=== PATIENT | male | born 1950 | race Caucasian/White ===

== ENCOUNTER → 2023-08-13 16:10 | Outpatient (REF) | payer MEDICARE, BC, SELFPAY | LOC: HWRAD 16:10 | PROVIDERS: ATTENDING PHYSICIAN Nuclear Medicine Nuclear Cardiology; FAMILY PHYSICIAN Family Medicine | DX: I25.10 Atherosclerotic heart disease of native coronary artery without angina pectoris (principal); I48.0 Paroxysmal atrial fibrillation; I25.5 Ischemic cardiomyopathy; R06.02 Shortness of breath | CPT/HCPCS: 71046 ==

== ENCOUNTER → 2023-08-14 12:24 | Outpatient (REF) | payer MEDICARE, BC, SELFPAY | LOC: RADI 12:24 | PROVIDERS: ATTENDING PHYSICIAN Specialist; FAMILY PHYSICIAN Family Medicine | DX: Z49.01 Encounter for fitting and adjustment of extracorporeal dialysis catheter (principal); N18.6 End stage renal disease | CPT/HCPCS: 36589 ==

== ENCOUNTER → 2023-08-19 10:23 | Outpatient (REF) | payer MEDICARE, BC, SELFPAY ==
[2023-08-19 10:44] VITALS: BP 135/77; BP_SYST 77
[2023-08-19 11:13] VITALS: BP 145/83
== END ==
LOC: RADI 10:23
PROVIDERS: ATTENDING PHYSICIAN Nuclear Medicine Nuclear Cardiology
DX: J90 Pleural effusion, not elsewhere classified (principal)
CPT/HCPCS: 32555; 71045

== ENCOUNTER → 2023-10-28 13:46 | Outpatient (REF) | payer MEDICARE, BC, SELFPAY | LOC: DHCBS HW 13:46 | PROVIDERS: ATTENDING PHYSICIAN Nuclear Medicine Nuclear Cardiology; FAMILY PHYSICIAN Family Medicine | DX: I25.10 Atherosclerotic heart disease of native coronary artery without angina pectoris (principal); I25.5 Ischemic cardiomyopathy; R06.09 Other forms of dyspnea | CPT/HCPCS: 93308 ==

== ENCOUNTER → 2023-10-30 09:49 | Outpatient (REF) | payer MEDICARE, BC, SELFPAY | LOC: RAD 09:49 | PROVIDERS: ATTENDING PHYSICIAN Surgery Vascular Surgery | DX: I77.0 Arteriovenous fistula, acquired (principal) | CPT/HCPCS: 93990 ==

== ENCOUNTER 2024-02-09 10:52 | Emergency (ER) | payer MEDICARE, BC, SELFPAY ==
[2024-02-09 11:03] VITALS: BP 155/88
--- NOTE | 2024-02-09 11:04 | ED.GENMED ---
History of Present Illness
<Moni Blair PA-C - Last Filed: 02/09/24 19:40>
General
Chief Complaint: Skin Surface Trauma
Source: patient
Exam Limitations: none
Time Seen by Provider: 02/09/24 11:04
Nursing documentation reviewed up to this point in time: agreed with
History of Present Illness
History of Present Illness:
73-year-old male with a past medical history of A-fib on Eliquis, coronary artery disease, hypertension, chronic renal failure on dialysis, insulin-dependent diabetes presenting to emergency department today with concerns of a laceration following a
fall. Patient reports that he was sitting down in his chair when he rocked back in his chair too far and lunged forward and fell forward onto his face. Patient reports some mild neck pain and a headache following the injury. Patient does take
Eliquis. Patient endured a large laceration to his left forehead with persistent bleeding. This occurred few hours ago. Patient did not lose consciousness. Patient is able to ambulate without difficulty. Patient denies any upper extremity
paresthesias. Patient denies any weakness in his extremities. Patient believes up-to-date on tetanus vaccination. Patient denies any chest pain, dizziness, palpitation prior to the fall. Family present in room reports that patient has been
having balance issues as of recent but that he tends to get that way surrounding dialysis.
Past History
<Moni Blair PA-C - Last Filed: 02/09/24 19:40>
Past History
ED Past Medical History: CAD, HTN, IDDM, Renal failure and Other (right inguinal hernia)
ED Past Surgical History: Cardiac (stent placement 2022)
Social History
Tobacco: Non-smoker
Alcohol: Occasional
Drug: None
Personal:
Living: with family
Review of Systems
<Moni Blair PA-C - Last Filed: 02/09/24 19:40>
Review of Systems
All Other Systems: ROS reviewed and negative except as documented in HPI and ROS
Phy Exam
<Moni Blair PA-C - Last Filed: 02/09/24 19:40>
Physical Exam
Physical Exam:
General: Patient is well appearing and in no acute distress; non-toxic
Skin: Warm and dry, there is a 4.5 cm actively bleeding laceration above the left eyebrow. Is gaping. No obvious foreign body.
Head: Normocephalic, no tenderness palpation of the scalp. No laceration noted. No tenderness palpation of the facial bones. TMJ joints intact bilaterally.
Eyes: Sclera non-icteric. EOMs intact. No entrapment.
Neck: No tenderness palpation cervical spine. Patient seen spontaneously moving cervical spine.
Cardiac: Regular rate, no tenderness palpation of the external chest wall
Peripheral Vascular: No lower extremity swelling or edema
Pulm: Normal respiratory effort
Abdomen: No abdominal tenderness to palpation
Musculoskeletal: 5 out of 5 strength bilateral upper and lower extremities
Neuro: CN II-XII intact, no focal neurologic deficits. Sensation intact to light touch of forehead and facial trigeminal nerve distribution.
Psychiatric: Appropriate mood and affect.
Course
<Moni Blair PA-C - Last Filed: 02/09/24 19:40>
Orders/Labs/Results
Orders:
Orders
02/09/24 11:[address] [CT Head W/o Iv Contrast] Urgent
Comment:
Reason For Exam: head strike
02/09/24 11:06
CT Cervical Spine W/o Iv Contr Urgent
Comment:
Reason For Exam: head strike, mild neck pain
Vital Signs
Initial and Last Documented VS:
Initial Vital Signs
Temp Pulse Resp BP Pulse Ox
97.6 F 99 16 155/88 97
02/09/24 11:03 02/09/24 11:03 02/09/24 11:03 02/09/24 11:03 02/09/24 11:03
Last Documented Vital Signs
Temp Pulse Resp BP Pulse Ox
97.6 F 99 14 141/78 98
02/09/24 11:03 02/09/24 14:37 02/09/24 14:37 02/09/24 14:37 02/09/24 14:37
<Tamara Warren MD - Last Filed: 02/09/24 12:03>
Orders/Labs/Results
Orders:
Orders
02/09/24 11:[address]
Head [address] [CT Head W/o Iv Contrast] Urgent
Comment:
Reason For Exam: head strike
02/09/24 11:06
CT Cervical Spine W/o Iv Contr Urgent
Comment:
Reason For Exam: head strike, mild neck pain
Vital Signs
Initial and Last Documented VS:
Initial Vital Signs
Temp Pulse Resp BP Pulse Ox
97.6 F 99 16 155/88 97
02/09/24 11:03 02/09/24 11:03 02/09/24 11:03 02/09/24 11:03 02/09/24 11:03
Last Documented Vital Signs
Temp Pulse Resp BP Pulse Ox
97.6 F 99 14 141/78 98
02/09/24 11:03 02/09/24 14:37 02/09/24 14:37 02/09/24 14:37 02/09/24 14:37
Procedures
<Moni Blair PA-C - Last Filed: 02/09/24 19:40>
Laceration Closure
Left Forehead:
Status of Wound: clean
Size of Wound in cm: 4.5
Description of Wound Edges: sharp
Preparation: cleaned with saline
Anesthesia: 1% Lidocaine with epi
Revision/Debridement: routine- no revision
Wound exploration: explored to base- no FB
Type of Closure: single layer closure
Skin Closure Material: 5-0 prolene
Number of sutures: 9
<Moni Blair PA-C - Last Filed: 02/09/24 19:40>
MDM/Problems Addressed
Differential Diagnosis Includes:
Differentials include laceration, abrasion, concussion, orbital fracture, epidural hematoma, subdural hematoma
MDM/Problems Addressed:
Fall:
73-year-old male with a past medical history of A-fib on Eliquis, coronary artery disease, hypertension, chronic renal failure on dialysis, insulin-dependent diabetes presenting to emergency department today with concerns of a laceration following a
fall. Patient reports that he was sitting down in his chair when he rocked back in his chair too far and lunged forward and fell forward onto his face. Patient had no loss of consciousness. Patient's laceration was repaired with sutures, patient
tolerated procedure well, return precaution and care discussed. CT the cervical spine is negative for any fracture but does show multiple degenerative changes. Head CT reveals no fracture or acute bleed but does show moderate ventricular dilation
which may be consistent with normal pressure hydrocephalus.
Neurosurgeon on-call was contacted who stated that patient does not need intervention at this time or be admitted for further workup, however patient can follow-up as outpatient in the office. Referral for neurosurgery office provided. Advised
patient and family to call the office tomorrow morning. Patient stable for discharge.
Chronic conditions affecting care:
Renal failure on dialysis, A-fib on Eliquis, insulin-dependent diabetes
<Moni Blair PA-C - Last Filed: 02/09/24 19:40>
*Pulse Oximetry
Patient hypoxic: no
*Critical Care Note
Total Time (30-74mins, 75-104mins- exclusive of procedures): Not Applicable
Data Reviewed
Review of Other/Old Records Reveals: Records (Reviewed ER physician documentation from 07/17/2023), Radiology Studies (No previous head CTs in [facility] to review) and Discharge Summary (Reviewed discharge summary from 05/03/2023)
Source: patient and records
<Moni Blair PA-C - Last Filed: 02/09/24 19:40>
Patient Management
Escalation/DeEscalation of care consider admission/obs:
Reviewed case with my attending. Patient stable for discharge.
ED Attending Note
<Moni Blair PA-C - Last Filed: 02/09/24 19:40>
-
Portions of this chart may have been created with voice recognition software.� Occasional wrong word or��sound alike� substitutions may have occurred due to the inherent limitations of voice recognition software.
<Tamara Warren MD - Last Filed: 02/09/24 12:03>
ED Attending Note
Patient seen and examined by attending physician: Yes
I performed the substantive portion of visit, reviewed & personally made and approve the management plan that is documented in note by myself or BHAVNA.: Yes
ED Attending Note:
Patient is fully awake, alert and oriented x 3. On exam, he has a nontender C-spine. His heart sounds regular. His abdomen is soft and nontender. He denies headache, nausea, vomiting, weakness and numbness.
Discharge Plan
Departure
Patient Disposition: Home (Routine Discharge)
Date of Disposition: 02/09/24
Time of Disposition: 14:09
Patient with high blood pressure during this ER visit?: Yes
Condition: Good
Discharge Problem:
Forehead laceration, Fall
Instructions: Wound Care (DC), Laceration Repair With Stitches (DC)
Prescriptions:
No Action
atorvastatin 80 mg Tablet
80 mg PO HS
insulin degludec [Tresiba FlexTouch U-100] 100 unit/mL (3 mL) Insulin Pen
10 - 14 unit SC HS
calcium acetate 667 mg Tablet
667 mg PO MEALS
aspirin 81 mg tablet,delayed release (DR/EC)
81 mg PO DAILY
Eliquis 5 mg tablet
2.5 mg PO BID
acetaminophen 325 mg Tablet
650 mg PO Q4HPRN PRN (Reason: mild pain,headache,temp >101F ) Qty: 0 0RF
oxycodone 5 mg Tablet
5 mg PO Q6HPRN PRN (Reason: modeate-severe pain control) Qty: 28 0RF
pantoprazole 20 mg Tablet,Delayed Release (Dr/Ec)
20 mg PO DAILY Qty: 30 0RF
insulin aspart U-100 [Novolog FlexPen U-100 Insulin] 100 unit/mL (3 mL) Insulin Pen
12 unit SC AC Qty: 15 0RF
albuterol sulfate 2.5 mg /3 mL (0.083 %) Solution For Nebulization
2.5 mg INHALATION R Q4HPRN PRN (Reason: sob)
carvedilol [Coreg] 3.125 mg Tablet
3.125 mg PO BID
gabapentin 100 mg Capsule
100 mg PO BID
Rx Instructions:
new start 07/16/23
amiodarone [Pacerone] 200 mg tablet
200 mg PO DAILY
Referrals:
Estuardo Torres DO [Active] - Call in 1-3 days for appt
Olman Dougherty DO [Family Provider] -
Activity Restrictions/Additional Instructions:
Please return emergency department to develop fevers or chills, purulent drainage from the wound, surrounding redness to the wound, increasing pain, any other concerning signs or symptoms.
Your CT scan of your head demonstrated dilation of the ventricles in your brain. It is very important that you follow-up with a neurologist for this issue. Please call the attached number to schedule an appointment.
Please keep the wound dry for 24 hours. After 24 hours, you can wash the wound with mild soap and water. You can apply bacitracin once daily and change the dressing once daily.
Interventions
Interventions:
*Risk Screen - Suicide Last Done: 02/09/24 11:44
*General Assessment Last Done: 02/09/24 11:44
*Neglect/Abuse Screening Last Done: 02/09/24 11:44
ED- Fall Risk Assessment Last Done: 02/09/24 14:39
*ED COVID-19 Vaccine History Last Done: 02/09/24 11:44
*Nursing Disposition Last Done: 02/09/24 14:39
ED-Skin Assessment Last Done: 02/09/24 11:44
Discharge Date and Time
Discharge Date/Time: 02/09/24 14:40
Print Language: [place] K[place]
[2024-02-09 11:44] VITALS: BMI 20.2
[2024-02-09 14:37] VITALS: BP 141/78
== END 2024-02-09 14:40 | disposition home or self-care (01) ==
LOC: EMR 10:52
PROVIDERS: EMERGENCY PHYSICIAN Emergency Medicine; FAMILY PHYSICIAN Family Medicine
DX: S01.81XA Laceration without foreign body of other part of head, initial encounter (principal); W07.XXXA Fall from chair, initial encounter; I48.91 Unspecified atrial fibrillation; Z79.01 Long term (current) use of anticoagulants; I25.10 Atherosclerotic heart disease of native coronary artery without angina pectoris; I12.0 Hypertensive chronic kidney disease with stage 5 chronic kidney disease or end stage renal disease; N18.6 End stage renal disease; E11.22 Type 2 diabetes mellitus with diabetic chronic kidney disease
CPT/HCPCS: 99284; 12002; 70450; 72125

== ENCOUNTER 2024-04-20 19:17 | Emergency (ER) | payer MEDICARE, BC, SELFPAY ==
[2024-04-20 19:19] VITALS: BP 142/96
[2024-04-20 19:42] LABS: % Basophils 1.1 % (0-2); % Eosinophils 0.3 % (0-6); % Immature Granulocytes 1.6 % (0-0.5); % Lymphocytes 18.2 % (20.5-51.1); % Monocytes 11.6 % (1.7-9.3); % Neutrophils 67.2 % (42.2-75.2); Absolute Basophils 0.1 10^3/uL (0-0.2); Absolute Immature Granulocytes 0.1 10^3/uL (0-0.05); Absolute Lymphocytes 1.2 10^3/uL (1.2-3.4); Absolute Monocytes 0.8 10^3/uL (0.1-0.6); Absolute Neutrophils 4.3 10^3/uL (1.4-6.5); Hematocrit 41.6 % (39.0-52.0); Hemoglobin 13.5 g/dL (13.0-18.0); Mean Corp Hgb Conc. 32.5 g/dL (33.0-37.0); Mean Corpuscular Hgb 28.5 pg (27.0-31.0); Mean Corpuscular Volume 87.8 fL (80.0-94.0); Mean Platelet Volume 10.4 fL (7.4-10.4); Nucleated Red Blood Cells % 0.6 % (-); Platelet Count 181 10^3/uL (130-400); Red Blood Cell Count 4.74 10^6/uL (4.70-6.10); Red Cell Dist. Width 15.9 % (11.5-14.5); White Blood Cell Count 6.4 10^3/uL (4.8-10.8)
[2024-04-20 20:00] VITALS: BP 116/90
[2024-04-20 20:07] VITALS: BP 116/90
[2024-04-20 20:18] VITALS: BMI 21.7
[2024-04-20 20:20] LABS: ALT (SGPT) 40 U/L (0-50); AST (SGOT) 44 U/L (17-59); Albumin 4.6 g/dl (3.5-5.0); Alkaline Phosphatase 113 U/L (38-126); Blood Urea Nitrogen 72 mg/dl (9-20); Calcium 9.8 mg/dl (8.4-10.2); Carbon Dioxide 22 mmol/L (22-30); Chloride 89 mmol/L (98-107); Estimated Creatinine Clearance 12 ml/min; Glucose 287 mg/dl (70-99); Potassium 5.9 mmol/L (3.5-5.1); Sodium 134 mmol/L (135-145); Total Bilirubin 1.3 mg/dl (0.2-1.3); Total Protein 7.8 g/dl (6.3-8.2); eGFR 12.17
--- NOTE | 2024-04-20 20:53 | ED.GENMED ---
History of Present Illness
General
Chief Complaint: Breathing Problem
Time Seen by Provider: 04/20/24 19:50
History of Present Illness
History of Present Illness:
73-year-old male presents the emergency department for evaluation of shortness of breath, had an outpatient chest x-ray showing a left-sided pleural effusion. He denies shortness of breath at rest but has significant exertional symptoms. No fevers
or chills. He is supposed to be on Eliquis for A-fib but self discontinued this several months ago. Has a history of left pleural effusion that has required thoracentesis in the past. He is due for dialysis tomorrow morning and has been compliant
with all of his recent treatments
Past History
Past History
ED Past Medical History: CAD, HTN, IDDM, Renal failure and Other (right inguinal hernia)
ED Past Surgical History: Cardiac (stent placement 2022)
Social History
Tobacco: Non-smoker
Alcohol: Occasional
Drug: None
Personal:
Living: with family
Review of Systems
Review of Systems
Allergies reviewed?: Yes
All Other Systems: ROS reviewed and negative except as documented in HPI and ROS
Phy Exam
Physical Exam
Physical Exam:
GEN: Well appearing, NAD, WDWN
HEENT: Oral mucosa moist, no scleral icterus
Cardiac: Regular rate and rhythm
Lung: No respiratory distress, no tachypnea, diminished left base breath sounds, otherwise clear
MSK: No gross deformity or injuries
Skin: Good color, no pallor or jaundice, no rashes
Neuro: AO x3, moves all extremities freely
Psych: Calm, cooperative
Scores
Heart Failure Risk
Heart Failure Risk Score: Not Applicable
Course
Orders/Labs/Results
Orders:
Orders
04/20/24 19:22
Electrocardiogram (*1) Urgent
Reason for Study: Shortness of Breath
EKG- Treatment ONCE
04/20/24 19:31
Complete Blood Count/With Diff Urgent
Comprehensive Metabolic Panel Urgent
04/20/24 20:54
Sodium Zirconium Cyclosilicate [Lokelma] 10 gram PO NOW STA
Abnormal Lab Results
04/20/24
19:31
MCHC 32.5 L g/dL
(33.0-37.0)
RDW 15.9 H %
(11.5-14.5)
Abs Immat Gran (auto) 0.1 H 10^3/uL
(0-0.05)
Absolute Monos (auto) 0.8 H 10^3/uL
(0.1-0.6)
Immature Gran % 1.6 H %
(0-0.5)
Lymphocytes % 18.2 L %
(20.5-51.1)
Monocytes % 11.6 H %
(1.7-9.3)
Sodium 134 L mmol/L
(135-145)
Potassium 5.9 H mmol/L
(3.5-5.1)
Chloride 89 L mmol/L
(98-107)
BUN 72 H mg/dl
(9-20)
Creatinine 4.8 H* mg/dL
(0.7-1.3)
Glucose 287 H mg/dl
(70-99)
04/20/24 19:31
04/20/24 19:31
Vital Signs
Initial and Last Documented VS:
Initial Vital Signs
Temp Pulse Resp BP Pulse Ox
97.6 F 76 22 142/96 96
04/20/24 19:19 04/20/24 19:19 04/20/24 19:19 04/20/24 19:19 04/20/24 19:19
Last Documented Vital Signs
Temp Pulse Resp BP Pulse Ox
97.6 F 101 15 117/87 97
04/20/24 19:19 04/20/24 21:00 04/20/24 21:00 04/20/24 21:00 04/20/24 21:00
MDM/Problems Addressed
MDM/Problems Addressed:
Patient is clinically stable and suitable for outpatient thoracentesis, prescription written for outpatient procedure, given Lokelma x 1 for hyperkalemia and will receive dialysis tomorrow
*Critical Care Note
Total Time (30-74mins, 75-104mins- exclusive of procedures): Not Applicable
ED Attending Note
-
Portions of this chart may have been created with voice recognition software.� Occasional wrong word or��sound alike� substitutions may have occurred due to the inherent limitations of voice recognition software.
Discharge Plan
Departure
Patient Disposition: Home (Routine Discharge)
Date of Disposition: 04/20/24
Time of Disposition: 20:53
Patient with high blood pressure during this ER visit?: No
Discharge Problem:
Recurrent left pleural effusion, Acute hyperkalemia, ESRD on dialysis
Instructions: Pleural effusion
Prescriptions:
No Action
atorvastatin 80 mg Tablet
80 mg PO HS
calcium acetate 667 mg Tablet
667 mg PO MEALS
aspirin 81 mg tablet,delayed release (DR/EC)
81 mg PO DAILY
insulin aspart U-100 [Novolog FlexPen U-100 Insulin] 100 unit/mL (3 mL) Insulin Pen
12 unit SC AC Qty: 15 0RF
Rx Instructions:
meals
albuterol sulfate 2.5 mg /3 mL (0.083 %) Solution For Nebulization
2.5 mg INHALATION R Q4HPRN PRN (Reason: sob)
carvedilol [Coreg] 3.125 mg Tablet
3.125 mg PO BID
gabapentin 100 mg Capsule
100 mg PO BID
Rx Instructions:
new start 07/16/23
amiodarone [Pacerone] 200 mg tablet
200 mg PO DAILY
tramadol 50 mg Tablet
50 mg PO BID PRN (Reason: pain)
insulin glargine [Lantus Solostar U-100 Insulin] 100 unit/mL (3 mL) Insulin Pen
10 - 14 unit SC HS
Referrals:
Olman Dougherty, [Family Provider] -
Gerry Murillo DO [Active] -
Activity Restrictions/Additional Instructions:
Obtain dialysis as planned tomorrow
Call interventional radiology tomorrow in the AM to schedule an appointment
Interventions
Interventions:
*Risk Screen - Suicide Last Done: 04/20/24 19:19
*General Assessment Last Done: 04/20/24 19:19
*Neglect/Abuse Screening Last Done: 04/20/24 19:19
ED- Fall Risk Assessment Last Done: 04/20/24 20:10
*ED COVID-19 Vaccine History Last Done: 04/20/24 19:19
*Nursing Disposition Last Done: 04/20/24 21:25
ED- Cardiac Assessment Last Done: 04/20/24 20:10
ED- Pulmonary Assessment Last Done: 04/20/24 20:10
Discharge Date and Time
Discharge Date/Time: 04/20/24 21:25
Print Language: [place]
[2024-04-20 21:00] VITALS: BP 117/87
[2024-04-20] MEDS: LOKELMA 10 GRAM PO (21:10)
== END 2024-04-20 21:25 | disposition home or self-care (01) ==
LOC: EMR 19:17
PROVIDERS: Student in an Organized Health Care Education/Training Program; EMERGENCY PHYSICIAN Student in an Organized Health Care Education/Training Program; FAMILY PHYSICIAN Family Medicine
DX: J90 Pleural effusion, not elsewhere classified (principal); E87.5 Hyperkalemia; I12.0 Hypertensive chronic kidney disease with stage 5 chronic kidney disease or end stage renal disease; N18.6 End stage renal disease; Z99.2 Dependence on renal dialysis; I25.10 Atherosclerotic heart disease of native coronary artery without angina pectoris; I48.91 Unspecified atrial fibrillation; E11.22 Type 2 diabetes mellitus with diabetic chronic kidney disease; Z79.4 Long term (current) use of insulin; Z79.82 Long term (current) use of aspirin; Z95.5 Presence of coronary angioplasty implant and graft; Z91.148 Patient's other noncompliance with medication regimen for other reason
CPT/HCPCS: 99283; 71046; 80053; 85025; 93005

== ENCOUNTER → 2024-04-22 11:00 | Outpatient (REF) | payer MEDICARE, BC, SELFPAY ==
[2024-04-22 11:15] VITALS: BP 143/86; BP_SYST 102
[2024-04-22 11:25] VITALS: BP 129/88; BP_SYST 100
[2024-04-22 12:15] LABS: Body Fluid Mononuclear 65.6 %; Body Fluid Polymorphonuclear 34.4 %; Body Fluid WBC 273 /CUMM
[2024-04-22 12:16] LABS: Body Fluid Second Tech AMA
[2024-04-22 12:25] LABS: Body Fluid LDH 134 U/L
== END ==
LOC: RADI 11:00
PROVIDERS: ATTENDING PHYSICIAN Physician Assistant; FAMILY PHYSICIAN Family Medicine
DX: J90 Pleural effusion, not elsewhere classified (principal)
CPT/HCPCS: 32555; 71045; 83615; 87015; 87070; 87205; 89051

== ENCOUNTER 2024-05-05 23:58 | Observation (INO) | payer MEDICARE, BC, SELFPAY ==
[2024-05-05] VITALS (9 sets, daily range): BP systolic 133–149; BP diastolic 81–101; BMI 22.4
--- NOTE | 2024-05-05 16:21 | ED.GENMED ---
ED Provider Triage
<Nohemy Brewer PA-C - Last Filed: 05/05/24 16:26>
-
Patient seen by provider in Triage?: Seen in Triage
Attestation: A medical screening examination has been initiated by a qualified medical provider. Based on the assessment performed at this time, it has been determined that an emergent medical condition may exist and the patient has been informed
that further medical evaluation and possible additional diagnostic testing may be needed.
HPI: 74yoM here with generalized weakness, fatigue, trouble with balance. Ongoing x several months, worse today. Hx of ESRD on HD and IDDM. Last dialysis treatment was today. Seen in the ED recently for SOB, no dyspnea today. Has an appt with his
PCP tomorrow.
GENERAL: Alert , in no apparent distress
EYE: No visual abnormalities.
NECK: Trachea midline
ENT: No visible abnormalities.
LUNGS: No acute respiratory distress
NEUROLOGICAL: Alert and oriented
SKIN: Skin intact. No visible changes.
MUSCULOSKELETAL: Moving extremities normally
PSYCH: Normal and appropriate interaction.
This is a medical evaluation conducted in person to initiate diagnostic evaluation and provide initial therapeutics. Please see further documentation by the treating clinician.
CBC, CMP, and EKG ordered.
History of Present Illness
<Nohemy Brewer PA-C - Last Filed: 05/05/24 16:26>
General
Chief Complaint: Fatigue
Time Seen by Provider: 05/05/24 20:26
<Nayely Hart MD - Last Filed: 05/05/24 23:29>
History of Present Illness
History of Present Illness:
Patient is a 74-year-old male with history of CKD on dialysis, hypertension, hyperlipidemia, CAD bypass presenting to the emergency department with weakness. Patient's states that he was possibly diagnosed with NPH based on imaging however
went to a neurosurgeon who stated that he did not have NPH. They have noticed that his gait has worsened and he is shuffling more. 3 to 4 days ago he had weakness and sensation deficit in his right foot. Today he grabbed his couple coffee when he
his hand was so weak that it dropped. This is extremely unusual so they brought him in for further evaluation. They also noticed to have speech changes intermittently throughout the week. He denies any recent falls. No chest pain. No difficulty
breathing. Family does note that he is weak after dialysis however today was more unusual than his normal. Patient's does state that he has been more confused lately and is also been having urinary incontinence. They do not have any plans to
see the neurosurgeon .
Past History
<Nohemy Brewer PA-C - Last Filed: 05/05/24 16:26>
Past History
ED Past Medical History: CAD, HTN, IDDM, Renal failure and Other (right inguinal hernia)
ED Past Surgical History: Cardiac (stent placement 2022)
Social History
Tobacco: Non-smoker
Alcohol: Occasional
Drug: None
Personal:
Living: with family
Phy Exam
<Nayely Hart MD - Last Filed: 05/05/24 23:29>
Physical Exam
Physical Exam:
GENERAL: in no acute distress
HEENT: normocephalic, extraocular movements intact, moist oral mucosa
NECK: normal inspection
RESPIRATORY: no respiratory distress, clear to auscultation bilaterally
CARDIOVASCULAR: regular rate and rhythm
ABDOMEN/: soft, non-distended, non-tender to palpation, no rebound or guarding
EXTREMITIES: non-tender, no edema/swelling
NEUROLOGIC: alert and oriented x 3, cranial nerves II-XII intact, right upper extremity strength 5/5, left upper extremity strength 5/5, right lower extremity strength 4/5, left lower extremity strength 5/5, normal sensation to light touch, normal
[id number]-[id number]-rmnb and cwlp-tq-[id number], gait not tested formally
SKIN: warm
Course
<Nohemy Brewer PA-C - Last Filed: 05/05/24 16:26>
Orders/Labs/Results
Orders:
Orders
05/05/24 16:25
Electrocardiogram (*1) Urgent
Reason for Study: Fatigue / Weakness
EKG- Treatment ONCE
05/05/24 16:37
Complete Blood Count/With Diff Urgent
05/05/24 20:14
Comprehensive Metabolic Panel Urgent
05/05/24 20:[address] [CT Head W/o Iv Contrast] Urgent
Comment:
Reason For Exam: weakness, confusion
05/05/24 21:17
Urinalysis Reflex To Culture Urgent
Date Specimen was Collected: 05/05/24
Time Specimen was Collected: 20:11
Urine Microscopic Reflex Cult Urgent
Abnormal Lab Results
05/05/24 05/05/24 05/05/24
16:37 20:14 20:28
MCHC 32.3 L g/dL
(33.0-37.0)
RDW 19.3 H %
(11.5-14.5)
Plt Count 101 L 10^3/uL
(130-400)
MPV 11.9 H fL
(7.4-10.4)
Absolute Lymphs (auto) 0.9 L 10^3/uL
(1.2-3.4)
Absolute Monos (auto) 0.8 H 10^3/uL
(0.1-0.6)
Immature Gran % 0.6 H %
(0-0.5)
Lymphocytes % 12.8 L %
(20.5-51.1)
Monocytes % 10.9 H %
(1.7-9.3)
Chloride 95 L mmol/L
(98-107)
BUN 48 H mg/dl
(9-20)
Creatinine 2.5 H mg/dL
(0.7-1.3)
Glucose 215 H mg/dl
(70-99)
Calcium 8.1 L mg/dl
(8.4-10.2)
Total Protein 6.0 L g/dl
(6.3-8.2)
Albumin 3.2 L g/dl
(3.5-5.0)
Ur Occult Blood Reflex
Urine RBC
Urine Bacteria (Reflex)
Urine Glucose
Urine Albumin (Reflex)
POC Glucose 223 H mg/dl
(70-99)
05/05/24
21:17
MCHC
RDW
Plt Count
MPV
Absolute Lymphs (auto)
Absolute Monos (auto)
Immature Gran %
Lymphocytes %
Monocytes %
Chloride
BUN
Creatinine
Glucose
Calcium
Total Protein
Albumin
Ur Occult Blood Reflex Trace A
(Negative)
Urine RBC 3-6 A /HPF
(0-2)
Urine Bacteria (Reflex) Few A
(Negative)
Urine Glucose 2+ A
(Negative)
Urine Albumin (Reflex) 2+ A
(Neg - Trace)
POC Glucose
05/05/24 16:37
05/05/24 20:14
Vital Signs
Initial and Last Documented VS:
Initial Vital Signs
Temp Pulse Resp BP Pulse Ox
97.8 F 66 20 137/84 96
05/05/24 16:19 05/05/24 16:19 05/05/24 16:19 05/05/24 16:19 05/05/24 16:19
Last Documented Vital Signs
Temp Pulse Resp BP Pulse Ox
97.8 F 98 14 137/89 97
05/05/24 16:19 05/05/24 22:15 05/05/24 22:15 05/05/24 22:00 05/05/24 22:15
<Nayely Hart MD - Last Filed: 05/05/24 23:29>
Orders/Labs/Results
Orders:
Orders
05/05/24 16:25
Electrocardiogram (*1) Urgent
Reason for Study: Fatigue / Weakness
EKG- Treatment ONCE
05/05/24 16:37
Complete Blood Count/With Diff Urgent
05/05/24 20:14
Comprehensive Metabolic Panel Urgent
05/05/24 20:[address] [CT Head W/o Iv Contrast] Urgent
Comment:
Reason For Exam: weakness, confusion
05/05/24 21:17
Urinalysis Reflex To Culture Urgent
Date Specimen was Collected: 05/05/24
Time Specimen was Collected: 20:11
Urine Microscopic Reflex Cult Urgent
Abnormal Lab Results
05/05/24 05/05/24 05/05/24
16:37 20:14 20:28
MCHC 32.3 L g/dL
(33.0-37.0)
RDW 19.3 H %
(11.5-14.5)
Plt Count 101 L 10^3/uL
(130-400)
MPV 11.9 H fL
(7.4-10.4)
Absolute Lymphs (auto) 0.9 L 10^3/uL
(1.2-3.4)
Absolute Monos (auto) 0.8 H 10^3/uL
(0.1-0.6)
Immature Gran % 0.6 H %
(0-0.5)
Lymphocytes % 12.8 L %
(20.5-51.1)
Monocytes % 10.9 H %
(1.7-9.3)
Chloride 95 L mmol/L
(98-107)
BUN 48 H mg/dl
(9-20)
Creatinine 2.5 H mg/dL
(0.7-1.3)
Glucose 215 H mg/dl
(70-99)
Calcium 8.1 L mg/dl
(8.4-10.2)
Total Protein 6.0 L g/dl
(6.3-8.2)
Albumin 3.2 L g/dl
(3.5-5.0)
Ur Occult Blood Reflex
Urine RBC
Urine Bacteria (Reflex)
Urine Glucose
Urine Albumin (Reflex)
POC Glucose 223 H mg/dl
(70-99)
05/05/24
21:17
MCHC
RDW
Plt Count
MPV
Absolute Lymphs (auto)
Absolute Monos (auto)
Immature Gran %
Lymphocytes %
Monocytes %
Chloride
BUN
Creatinine
Glucose
Calcium
Total Protein
Albumin
Ur Occult Blood Reflex Trace A
(Negative)
Urine RBC 3-6 A /HPF
(0-2)
Urine Bacteria (Reflex) Few A
(Negative)
Urine Glucose 2+ A
(Negative)
Urine Albumin (Reflex) 2+ A
(Neg - Trace)
POC Glucose
05/05/24 16:37
05/05/24 20:14
Vital Signs
Initial and Last Documented VS:
Initial Vital Signs
Temp Pulse Resp BP Pulse Ox
97.8 F 66 20 137/84 96
05/05/24 16:19 05/05/24 16:19 05/05/24 16:19 05/05/24 16:19 05/05/24 16:19
Last Documented Vital Signs
Temp Pulse Resp BP Pulse Ox
97.8 F 98 14 137/89 97
05/05/24 16:19 05/05/24 22:15 05/05/24 22:15 05/05/24 22:00 05/05/24 22:15
<Nayely Hart MD - Last Filed: 05/05/24 23:29>
MDM/Problems Addressed
Differential Diagnosis Includes:
Patient is a 74-year-old man presenting to the emergency department with weakness that has been ongoing for the past 3 to 4 days with it worsening today. Vitals unremarkable and exam does show slightly decreased joint in the right lower extremity.
Concern for CVA versus infection such as UTI or normal pressure hydrocephalus. Will check blood work for electrolytes and obtain urine and CT scan. Patient will need admission.
<Nayely Hart MD - Last Filed: 05/05/24 23:29>
*Critical Care Note
Total Time (30-74mins, 75-104mins- exclusive of procedures): Not Applicable
<Nayely Hart MD - Last Filed: 05/05/24 23:29>
Update Note
Update Note:
Blood work unremarkable overall. Creatinine is improved from baseline. CT scan negative. Discussed with hospitalist who accepted patient to their service.
ED Attending Note
<Nohemy Brewer PA-C - Last Filed: 05/05/24 16:26>
-
Portions of this chart may have been created with voice recognition software.� Occasional wrong word or��sound alike� substitutions may have occurred due to the inherent limitations of voice recognition software.
Discharge Plan
Departure
Patient Disposition: Admit
Date of Disposition: 05/05/24
Time of Disposition: 23:28
Presentation/result/management discussed w/ accepting MD/DO: Hospitalist
Discharge Problem:
Weakness
Prescriptions:
No Action
atorvastatin 80 mg Tablet
80 mg PO HS
calcium acetate 667 mg Tablet
667 mg PO MEALS
aspirin 81 mg tablet,delayed release (DR/EC)
81 mg PO HS
insulin aspart U-100 [Novolog FlexPen U-100 Insulin] 100 unit/mL (3 mL) Insulin Pen
12 unit SC AC Qty: 15 0RF
carvedilol [Coreg] 3.125 mg Tablet
3.125 mg PO BID
gabapentin 100 mg Capsule
200 mg PO HS
amiodarone [Pacerone] 200 mg tablet
200 mg PO HS
tramadol 50 mg Tablet
100 mg PO HS
insulin glargine [Lantus Solostar U-100 Insulin] 100 unit/mL (3 mL) Insulin Pen
14 unit SC HS
acetaminophen [Tylenol] 325 mg Tablet
625 mg PO Q4HPRN PRN (Reason: mild pain)
nitroglycerin 0.4 mg Tablet, Sublingual
0.4 mg SUBLINGUAL [id number] PRN (Reason: chest pain)
Referrals:
Olman Dougherty DO [Family Provider] -
Interventions
Interventions:
*Risk Screen - Suicide Last Done: 05/05/24 16:19
*General Assessment Last Done: 05/05/24 20:18
*Neglect/Abuse Screening Last Done: 05/05/24 16:19
ED- Fall Risk Assessment Last Done: 05/05/24 20:23
*ED COVID-19 Vaccine History Last Done: 05/05/24 16:19
Discharge Date and Time
Print Language: TURKMEN
[2024-05-05 16:53] LABS: % Basophils 1.1 % (0-2); % Eosinophils 1.1 % (0-6); % Immature Granulocytes 0.6 % (0-0.5); % Lymphocytes 12.8 % (20.5-51.1); % Monocytes 10.9 % (1.7-9.3); % Neutrophils 73.5 % (42.2-75.2); Absolute Basophils 0.1 10^3/uL (0-0.2); Absolute Eosinophils 0.1 10^3/uL (0-0.7); Absolute Lymphocytes 0.9 10^3/uL (1.2-3.4); Absolute Monocytes 0.8 10^3/uL (0.1-0.6); Absolute Neutrophils 5.2 10^3/uL (1.4-6.5); Hematocrit 45.2 % (39.0-52.0); Hemoglobin 14.6 g/dL (13.0-18.0); Mean Corp Hgb Conc. 32.3 g/dL (33.0-37.0); Mean Corpuscular Hgb 28.1 pg (27.0-31.0); Mean Corpuscular Volume 87.1 fL (80.0-94.0); Mean Platelet Volume 11.9 fL (7.4-10.4); Nucleated Red Blood Cells % 0.9 % (-); Platelet Count 101 10^3/uL (130-400); Red Blood Cell Count 5.19 10^6/uL (4.70-6.10); Red Cell Dist. Width 19.3 % (11.5-14.5)
[2024-05-05 20:28] LABS: Glucose - Point of Care 223 mg/dl (70-99)
[2024-05-05 21:06] LABS: ALT (SGPT) 30 U/L (0-50); AST (SGOT) 32 U/L (17-59); Albumin 3.2 g/dl (3.5-5.0); Alkaline Phosphatase 88 U/L (38-126); Blood Urea Nitrogen 48 mg/dl (9-20); Calcium 8.1 mg/dl (8.4-10.2); Carbon Dioxide 27 mmol/L (22-30); Chloride 95 mmol/L (98-107); Estimated Creatinine Clearance 23 ml/min; Glucose 215 mg/dl (70-99); Potassium 4.9 mmol/L (3.5-5.1); Sodium 136 mmol/L (135-145); Total Bilirubin 1.1 mg/dl (0.2-1.3); eGFR 26.47
[2024-05-05 21:24] LABS: Urine Albumin 2+ (Neg - Trace); Urine Bilirubin Negative (Negative); Urine Character Clear (Clear); Urine Color Yellow; Urine Glucose 2+ (Negative); Urine Ketone Negative (Negative); Urine Leukocyte Negative (Negative); Urine Nitrite Negative (Negative); Urine Occult Blood Trace (Negative); Urine Specific Gravity 1.015 (<1.030); Urine Urobilinogen Negative (Neg - 1+); Urine pH 6.5 (5.0-9.0)
[2024-05-05 21:36] LABS: Urine Squamous Cell 0-2 /LPF (Few)
[2024-05-05 21:37] LABS: Urine Bacteria Few (Negative); Urine Mucus Few; Urine White Cell 0-2 /HPF (0-5)
--- NOTE | 2024-05-05 23:35 | HPS.HSE ---
Family Physician
-
Family Physician: Olman Dougherty
Chief Complaint
-
Reported dysarthria, right foot weakness, right hand weakness, incontinence urine
History of Present Illness
74-year-old male reports 3 to 4 days ago had weakness with sensation deficit in his Right foot and today while grabbing a cup of coffee his Right hand was so weak that it dropped, although patient states the coffee spilled on his pants. His
reports urinary incontinence with some confusion. Patient denies urinary incontinence states he voids once a day. He is oriented x 3 but is very inconsistent with stories and past history. He has no neurological deficits on exam. With standing
he tends to tilt backwards onto his heels, which he states has been going on for several months. His also noticed speech changes intermittently throughout the past week. He had prior diagnosis of NPH however went to neurosurgery and was told
he did not have NPH. He had full session of dialysis today. He has baseline shuffling gait. He denies headache, fever, chills, sore throat, cough, chest pain, palpitations, shortness of breath, abdominal pain, nausea, vomiting, diarrhea, urinary
symptoms. He has a dialysis fistula to his right forearm
He past medical history end-stage renal disease on HD, DM 2, COPD, CAD/cardiac stent 2022, LAD, RCA and circumflex stent 2022, CABG x 5 vessel GARZA-lad/lad, AO-SVG-OM/Cx, Ao-SVG-RCA, on pump, MAZE, KETURAH clip
05/02/23 ischemic cardiomyopathy EF 25 to 30%, paroxysmal A-fib HTN, LBBB right inguinal hernia
Medical History
Past Medical History
Past Medical History: Reports Other
Additional Past Medical History:
Coronary Artery Disease s/p Cardiac Stents
Paroxysmal Atrial Fibrillation
ESRD on HD Saturday
Essential Hypertension
Hyperlipidemia
Diabetes Mellitus, Type II
Chronic shuffling gait
COPD
CAD/cardiac stent 2022, LAD, RCA and circumflex stent 2022, CABG x 5 vessel GARZA-lad/lad, AO-SVG-OM/Cx, Ao-SVG-RCA, on pump, MAZE, KETURAH clip 05/02/23
ischemic cardiomyopathy EF 25 to 30%
paroxysmal A-fib
LBBB right inguinal hernia
Past Surgical History: Reports Other
Additional Past Surgical History:
RUE AV Fistula
cardiac stent 2022, LAD, RCA and circumflex stent 2022, CABG x 5 vessel GARZA-lad/lad, AO-SVG-OM/Cx, Ao-SVG-RCA, on pump, MAZE, KETURAH clip
Social History
Tobacco: Non-smoker
Alcohol: Occasional
Personal:
Living: With Family
Employment: Retired
Family History
Family History: Not pertinent
Allergies / Home Medications
Allergies reflects when Allergies were last updated in [employer].
Home Medications with original date entered in [employer]
Allergy/Medication List:
Allergies
Allergy/AdvReac Type Severity Reaction Status Date / Time
No Known Allergies Allergy Verified 05/05/24 16:23
Home Medications
atorvastatin 80 mg tablet 80 mg PO HS High Cholesterol 03/05/23
calcium acetate 667 mg tablet 667 mg PO MEALS Kidney Disease 03/05/23
aspirin 81 mg tablet,delayed release 81 mg PO HS Blood Clot Prevention/Tx 05/02/23
insulin aspart U-100 100 unit/mL (3 mL) subcutaneous pen (Novolog FlexPen U-100 Insulin aspart) 12 unit (0.12 mL) SC AC #15 mL 05/07/23
amiodarone 200 mg tablet (Pacerone) 200 mg PO HS 07/17/23
carvedilol 3.125 mg tablet (Coreg) 3.125 mg PO BID 07/17/23
gabapentin 100 mg capsule 200 mg PO HS 07/17/23
insulin glargine 100 unit/mL (3 mL) subcutaneous pen (Lantus Solostar U-100 Insulin) 14 unit SC HS Diabetes 04/20/24
tramadol 50 mg tablet 100 mg PO HS 04/20/24
acetaminophen 325 mg tablet (Tylenol) 625 mg PO Q4HPRN PRN mild pain 05/05/24
nitroglycerin 0.4 mg sublingual tablet 0.4 mg sublingual [id number] PRN chest pain 05/05/24
Review of Systems
-
History Source: Patient and Family ( to)
A 12 point ROS was completed and negative except as noted: Yes
Constitutional: Denies Fever, Fatigue or Chills
EENT: Reports Other (Reported dysarthria); Denies Sore Throat or Runny Nose
Respiratory: Denies Cough or Trouble Breathing
Cardiac: Denies Chest Pain, Diaphoresis, Palpitations or Syncope
Abdomen/GI: Denies Abdominal Pain, Nausea, Vomiting, Diarrhea, Constipated, Bloody Stools or Black Stools
: Reports Incontinence (Urine per ); Denies Dysuria, Frequency, Flank Pain, Difficulty Voiding or Urgency
Musculoskeletal: Denies Joint Pain or Edema
Skin: Reports Other (Right arm AV fistula); Denies Itching or Rash
Neurological: Reports Weakness (Reported weakness to leg, numbness to right hand x 1 year, gait instability x 3 weeks on baseline gait shuffling); Denies Dizzy or Headache
Endocrine: Reports No Symptoms
Hematologic/Lymphatic: Reports No Symptoms
Psych: Reports Calm
Physical Exam
Vital Signs
Vital Signs
Temp Pulse Resp BP Pulse Ox
97.8 F 98 17 137/81 95
05/05/24 16:19 05/05/24 23:15 05/05/24 23:15 05/05/24 23:00 05/05/24 23:15
Physical Exam
General: Comfortable and Conversant; No Fever or Chills
HEENT: NormoCephalic, Anicteric, PERRLA (EOMs intact negative nystagmus), [place] Conjunctivae and No Ptosis
Respiratory: Clear; No Wheezes, Rales or Rhonchi
Cardiac: S1/S2 and Regular Rhythm; No Murmur, Rub, Gallop or Peripheral Edema
Breast: Deferred by me
GI: Soft, Non Tender, Non Distended, Normal Bowel Sounds and No Hepatosplenomegaly
Genito-urinary: Deferred by me
Musculoskeletal: No Clubbing, No Cyanosis and No Edema
Skin: Warm and Dry; No Rash
Neuro: AO x 3 (Oriented to name, year, month although appears confused with recent history some of past medical history has inconsistent story compared to 's), No Motor Deficits, Nonfocal/grossly intact, Cranial Nerves Intact, No Sensory
Deficits and Other (When standing slightly tipped back onto heels but is able to steady self no appreciated upper or lower extremity weakness, speech is clear); No Slurred Speech, Facial Droop or Tremors
Psych: Calm
Laboratory Results
-
05/05/24 16:37
05/05/24 20:14
Laboratory Results
Total Bilirubin 1.1 mg/dl (0.2-1.3) 05/05/24 20:14
AST 32 U/L (17-59) 05/05/24 20:14
ALT 30 U/L (0-50) 05/05/24 20:14
Alkaline Phosphatase 88 U/L (38-126) 05/05/24 20:14
Data Reviewed
-
CT Scan: Report Reviewed by me
Lab Data: Labs Reviewed by me
Impression/Plan
-
Impression/plan
Observation telemetry
# Reported dysarthria/right hand/right lower extremity weakness concern CVA/TIA versus cognitive decline
-Speech clear no weakness appreciated upper or lower extremities
-MRI brain
-Neurochecks every 4 hours
-Continue aspirin 81 daily, atorvastatin 80 mg at bedtime
-Lipid profile, HgbA1c
-Consult neuro
-PT/OT/case management consult/speech swallow eval
Orthostatic vitals:
Lying BP 142/86, HR 99
Sitting 148/94, HR 109
Standing 149/85 HR 102
#Acute on chronic ambulatory dysfunction/shuffling gait possible component of diabetic neuropathy causing ataxia
-Continue gabapentin 200 mg at bedtime
-Consult PT/OT
#Concern for cognitive impairment given inconsistency in history taking
Will check MRI brain
-Check B12, TSH with free T4 reflex
CT head: No acute intracranial abnormality
Global atrophy with sequelae of moderate small vessel ischemic disease similar to prior
#ESRD on HD Saturday
Completed course of dialysis today 05/05/2024
Creat 2.5
-Consult Nephro
#Reported incontinence urine possibly related to urinary retention overflow
UA negative
-Will check bladder scan postvoid
#Paroxysmal A-fib
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
-Continue aspirin 81 mg daily, 200 mg amiodarone at bedtime
#HTN�benign
BP 137/81
-Continue Coreg 3.125 mg twice daily
#HLD
-Check lipid profile continue atorvastatin 80 mg at bedtime
#DM 2/diabetic neuropathy
-Continue Lantus 14 units SQ at bedtime, 12 units NovoLog with meals
-Continue gabapentin 200 mg at bedtime
#CAD
#Ischemic cardiomyopathy
s/p PCI to LAD, RCA, and circumflex 2014
s/p PCI 11/2022 at [facility], details unknown (?OM1 and LM-LAD PCI)
s/p CABG x5 - GARZA-lad/lad, AO-SVG-OM/Cx, Ao-SVG-RCA, on pump, MAZE, KETURAH clip 05/02/23
10/28/2023: EF 25-30%, severe left ventricular dysfunction. Global hypokinesis, focal apical akinesis and septal contraction abnormality. Pulm arterial pressure 40 mmHg, large left pleural effusion
#COPD�no acute exacerbation
No inhalers listed
DVT prophylaxis
SCDs
Full code per patient
--- NOTE | 2024-05-05 23:59 | W.PN.UPDATE ---
Update Note
Progress Note Update
This is an addendum to the H&P written by Rosalina Wang on 05/05/2024. Patient seen and examined independently with [employer].
74-year-old male past medical history of ESRD on hemodialysis Saturday, , Saturday, chronic HFrEF, CAD status post CABG, paroxysmal atrial fibrillation stopped anticoagulation on his own 6 months ago, hypertension, hyperlipidemia, diabetes,
prior CVA with partial left eye blindness, anemia presenting with generalized weakness, fatigue, balance dysfunction ongoing for several months worse today. He has weakness and sensory deficit in right hand. Also right hand weakness trying to grab
coffee cup. ER documentation also mentions intermittent speech changes and right foot weakness although patient denies this.
ER notes mention that he was seeing neurosurgery for consideration of possible normal pressure hydrocephalus on prior imaging which was ruled out.
Also with confusion and difficulty voiding with urinary incontinence this morning.
CT head shows no acute abnormality. Check orthostatic vital signs. Check MRI brain. Check A1c and lipid panel. Continue aspirin and give Plavix. Check TSH, B12. Neurology consulted.
Urinalysis unremarkable. Bladder scan protocol to evaluate for overflow incontinence.
Nephrology consulted for routine dialysis on .
[2024-05-06] VITALS (11 sets, daily range): BP systolic 101–144; BP diastolic 58–91; PULSE 63–85; BMI 22.4; BMI 20.1
[2024-05-06 01:27] LABS: Glucose - Point of Care 275 mg/dl (70-99)
[2024-05-06] MEDS: ULTRAM 100 MG PO ×2 (02:31→22:34)
[2024-05-06] MEDS: NEURONTIN 200 MG PO ×2 (02:31→22:33)
[2024-05-06 06:32] LABS: % Basophils 0.9 % (0-2); % Eosinophils 1.2 % (0-6); % Immature Granulocytes 0.3 % (0-0.5); % Lymphocytes 18.6 % (20.5-51.1); % Monocytes 9.3 % (1.7-9.3); % Neutrophils 69.7 % (42.2-75.2); Absolute Basophils 0.1 10^3/uL (0-0.2); Absolute Eosinophils 0.1 10^3/uL (0-0.7); Absolute Lymphocytes 1.2 10^3/uL (1.2-3.4); Absolute Monocytes 0.6 10^3/uL (0.1-0.6); Absolute Neutrophils 4.7 10^3/uL (1.4-6.5); Hematocrit 44.4 % (39.0-52.0); Hemoglobin 14.1 g/dL (13.0-18.0); Mean Corp Hgb Conc. 31.8 g/dL (33.0-37.0); Mean Corpuscular Hgb 28.2 pg (27.0-31.0); Mean Corpuscular Volume 88.8 fL (80.0-94.0); Mean Platelet Volume 11.3 fL (7.4-10.4); Nucleated Red Blood Cells % 0.4 % (-); Platelet Count 103 10^3/uL (130-400); Red Cell Dist. Width 18.7 % (11.5-14.5); White Blood Cell Count 6.7 10^3/uL (4.8-10.8)
[2024-05-06 06:43] LABS: ALT (SGPT) 30 U/L (0-50); AST (SGOT) 28 U/L (17-59); Albumin 3.4 g/dl (3.5-5.0); Alkaline Phosphatase 95 U/L (38-126); Blood Urea Nitrogen 62 mg/dl (9-20); Calcium 9.2 mg/dl (8.4-10.2); Carbon Dioxide 28 mmol/L (22-30); Chloride 89 mmol/L (98-107); Estimated Creatinine Clearance 17 ml/min; Glucose 284 mg/dl (70-99); HDL Cholesterol 30 mg/dl; LDL Cholesterol, Calculated 64 mg/dl; Sodium 134 mmol/L (135-145); Total Bilirubin 1.1 mg/dl (0.2-1.3); Total Cholesterol 115 mg/dl (50-199); Total Protein 6.2 g/dl (6.3-8.2); Triglyceride 108 mg/dl (10-149); Very Low Density Lipoprotein 21 mg/dl (0-30); eGFR 19.68
[2024-05-06 07:12] LABS: TSH Reflex To Free T4 3.11 uIU/ml (0.47-4.68)
[2024-05-06 07:31] LABS: Vitamin B12 977 pg/ml (239-931)
[2024-05-06] MEDS: COREG 3.125 MG PO (08:29)
[2024-05-06] MEDS: PHOSLO 667 MG PO ×3 (08:29→17:58)
[2024-05-06 08:36] LABS: Glucose - Point of Care 277 mg/dl (70-99)
[2024-05-06] MEDS: NOVOLOG FLEXPEN-LOW RESISTANCE 3 UNITS SC ×2 (08:40→12:47)
[2024-05-06] MEDS: NOVOLOG FLEXPEN 12 UNITS SC ×3 (08:41→17:56)
--- NOTE | 2024-05-06 09:04 | W.PN.HOSP.TC ---
Today's Communication/Plan
-
MRI of the brain.
Assessment / Plan
Assessment / Plan
Physical Exam
General: Comfortable and Conversant; No Fever or Chills
HEENT: NormoCephalic, Anicteric, PERRLA (EOMs intact negative nystagmus), [place] Conjunctivae and No Ptosis
Respiratory: Clear; No Wheezes, Rales or Rhonchi
Cardiac: S1/S2 and Regular Rhythm; No Murmur, Rub, Gallop or Peripheral Edema
Breast: Deferred by me
GI: Soft, Non Tender, Non Distended, Normal Bowel Sounds and No Hepatosplenomegaly
Genito-urinary: Deferred by me
Musculoskeletal: No Clubbing, No Cyanosis and No Edema
Skin: Warm and Dry; No Rash
Neuro: AO x 3 (Oriented to name, year, month although appears confused with recent history some of past medical history has inconsistent story compared to 's), No Motor Deficits, Nonfocal/grossly intact, Cranial Nerves Intact, No Sensory
Deficits and Other (When standing slightly tipped back onto heels but is able to steady self no appreciated upper or lower extremity weakness, speech is clear); No Slurred Speech, Facial Droop or Tremors
A/P:
# Reported dysarthria/right hand/right lower extremity weakness concern CVA/TIA versus cognitive decline
-Speech clear no weakness appreciated upper or lower extremities
-MRI brain
-Neurochecks every 4 hours
-Continue aspirin 81 daily, atorvastatin 80 mg at bedtime
-Lipid profile, HgbA1c
-Consult neuro--> discussed with neurology today on 05/06. Plan for MRI of the brain but suspicion for toxic metabolic encephalopathy in the setting of his chronic conditions.
-PT/OT/case management consult/speech swallow eval
Orthostatic vitals in the ED:
Lying BP 142/86, HR 99
Sitting 148/94, HR 109
Standing 149/85 HR 102
#Acute on chronic ambulatory dysfunction/shuffling gait possible component of diabetic neuropathy causing ataxia
-Continue gabapentin 200 mg at bedtime
-Consult PT/OT
#Concern for cognitive impairment given inconsistency in history taking
Will check MRI brain
-Check B12, TSH with free T4 reflex
CT head: No acute intracranial abnormality
Global atrophy with sequelae of moderate small vessel ischemic disease similar to prior
#ESRD on HD Saturday
Completed course of dialysis yesterday 05/05/2024
Creat 2.5 yesterday
-Consult Nephro
#Reported incontinence urine possibly related to urinary retention overflow
UA negative
-Will check bladder scan postvoid
#Paroxysmal A-fib
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
-Continue aspirin 81 mg daily, 200 mg amiodarone at bedtime
#HTN�benign
BP 137/81 upon admission
-Continue Coreg 3.125 mg twice daily
#HLD
-Check lipid profile continue atorvastatin 80 mg at bedtime
#DM 2/diabetic neuropathy
-Continue Lantus 14 units SQ at bedtime, 12 units NovoLog with meals
-Continue gabapentin 200 mg at bedtime
#CAD
#Ischemic cardiomyopathy
s/p PCI to LAD, RCA, and circumflex 2014
s/p PCI 11/2022 at [facility], details unknown (?OM1 and LM-LAD PCI)
s/p CABG x5 - GARZA-lad/lad, AO-SVG-OM/Cx, Ao-SVG-RCA, on pump, MAZE, KETURAH clip 05/02/23
10/28/2023: EF 25-30%, severe left ventricular dysfunction. Global hypokinesis, focal apical akinesis and septal contraction abnormality. Pulm arterial pressure 40 mmHg, large left pleural effusion
#COPD�no acute exacerbation
No inhalers listed
DVT prophylaxis
SCDs
Full code
Anticipated Discharge: 24 - 48 hours
Subjective/Interval History
-
Date of Service: May 06, 2024
Patient denies any chest pain or shortness of breath. Afebrile
Objective Data
-
Labs:
Laboratory Results
05/05/24 05/06/24
20:14 05:28
WBC 6.7
Hgb 14.1
Hct 44.4
Plt Count 103 L
Sodium 136 134 L
Potassium 4.9 5.0
Chloride 95 L 89 L
Carbon Dioxide 27 28
BUN 48 H 62 H
Creatinine 2.5 H 3.2 H
Glucose 215 H 284 H
Calcium 8.1 L 9.2
Total Bilirubin 1.1 1.1
AST 32 28
ALT 30 30
Alkaline Phosphatase 88 95
Vital Signs:
Vital Signs
Temp Pulse Resp BP Pulse Ox
97.5 F 90 20 134/91 96
05/06/24 07:18 05/06/24 08:29 05/06/24 07:18 05/06/24 08:29 05/06/24 07:18
I&O
05/05/24 05/06/24 05/07/24
06:59 06:59 06:59
Intake Total 480 / 480
Balance 480 / 480
--- NOTE | 2024-05-06 09:57 | CON.NEURO4 ---
Addendum entered and electronically signed by Eloisa Barone DO 05/06/24 17:45:
Studies reviewed.
I have personally examined the patient. I agree with the [employer] INSTRUCTOR's Note.
My addenda: 74 year-old male with worsened chronic gait dysfunction, an episode of 'freezing up' after dialysis and worsening confusion as well as recent urinary incontinence. Has been seen in the past by [facility] in workup for NPH; he was
felt not to have this. He is off anticoagulation due to his own concerns with bleeding. On exam, he is off by one year but otherwise oriented. Knew 's except for year. Otherwise oriented, able to provide some history which she
supplemented. Did have some difficulty with finger to nose on the L but exam was otherwise nonfocal.
Will check MRI brain, continue ASA. continue orthostatics and metabolic/infectious workup. Continue neurochecks. Will c/t follow.
Original Note:
Documented by User: Dorcas Morfin NP 05/06/24 12:17
Consultation - Neurology 4
-
CONSULTING PHYSICIAN: Eloisa Barone DO
REFERRING PHYSICIAN: Hospitalists/BIANCA Wilder
DICTATED BY: BIANCA Gallegos
DATE/TIME OF REQUEST: 05/06/24
DATE/TIME OF CONSULTATION: 05/06/24
Reason for Consultation: Right-sided weakness, dysarthria
History of Present Illness:
This is a 74-year-old right-handed male who has presented to the hospital on 05/05/24 with report of worsened chronic gait dysfunction, increased confusion, and right-sided weakness. Patient reports that he has had issues with gait dysfunction for
about 2 years. He doesn't feel off-balance but notes that his feet shuffle/feel heavy. He had a CABG in 04/2023 and notes that following surgery his gait worsened and he experienced a personality change which he describes as a lack of emotion. He
started using a single point cane then. For the past couple of months he has needed to use a walker for the past couple of months and in the past week has needed a wheelchair. He reports having only one fall in January 2024 in which he fell forward out
of a chair while trying to stand up. He was evaluated in [facility] at that time and CT head demonstrated a scalp soft tissue laceration and was suggestive of NPH. He was referred to [facility] neurosurgery for follow-up and was evaluated by Dr. Torres as
an outpatient who did not feel that he has NPH but more so was overall deconditioned, and recommended physical therapy. Patient also notes that starting one year ago he developed an intermittent tremor mostly in his R hand. He describes this as a
shaky movement that will suddenly happen when he is holding an objected for a prolonged period, and it causes him to drop what he is holding. He denies any anosmia.
He was evaluated in the ER on 04/20/24 for shortness of breath and PCP referral for outpatient chest xray demonstrating a left pleural effusion. He was supposed to undergo an outpatient left thoracentesis (he has had this in the past), but has still
not completed this. This past week, his notes that he has been slightly confused, he had one episode of urinary incontinence which is unusual, he has been reporting R foot sensation changes, he reports some word finding difficulty, and feeling
that his right hand and foot are slightly weaker, prompting him to come to the ER for evaluation. CT head was obtained on arrival and is negative for any acute abnormalities. Patient denies any headache, dizziness, vision changes, swallowing
difficulty, numbness, nausea, chest pain, palpitations, and shortness of breath. He has paroxysmal Afib and was taking Eliiquis until a few months ago, he stopped taking it due to excessive bleeding at his fistula site following HD access. He denies
any history of TIA or stroke in the past. He has been taking aspirin 81mg daily. He also notes significant weight loss over the past year. He has never had MRI brain imaging.
Past Medical History: Paroxysmal Afib (refused anticoagulation due to fistula site bleeding), HTN, HLD, CAD, CKD (HD TuThSat), NIDDM, COPD, chronic gait dysfunction
Surgical History: CABG x5 04/2023, PCI to LAD, RCA, circumflex 2014, PCI 11/2022, RUE AV fistula, left thoracentesis
Family History: Reviewed and noncontributory.
Social History: Denies tobacco and illicit drug use. Rare alcohol.
Allergies: No known allergies.
Home Medications: See below.
Review of Symptoms:
Patient denies any fever, headache, chest pain, shortness of breath, GI or symptoms.
�Per the HPI.�All systems are reviewed negative except above.
Physical Exam:
The patient is afebrile, abdomen is nondistended, breathing is unlabored, skin is cool and dry, trace BLE edema, b/l dusky.
NIH Stroke Scale:
I performed the NIH stroke scale on the patient on 05/06/24 at 1030. The patient scored 0 points on the NIH stroke scale assessment, which were assigned as follows:
Neurologic Examination:
The patient is awake, alert and oriented x 3. He is able to follow commands and answer questions appropriately. There is no aphasia or dysarthria. On cranial nerve assessment, pupils are 3 mm bilateral, round and reactive to light and
accommodation. Visual segura are full. Extraocular movements are intact, no upgaze restriction. Facial sensations are intact and bilaterally symmetrical, there is no facial asymmetry. Hearing is intact bilaterally to normal conversation volume.
Tongue palate and uvula are midline. Sternocleidomastoid strengths are full bilaterally. Motor strengths are 5/5 bilateral upper and lower extremities on medical research Parkman scale. There is no drift or involuntary movement noted. Deep tendon
reflexes are trace bilateral upper and lower extremities and Babinski is absent bilaterally. Sensation of vibration is severely reduced in distal bilateral lower extremities. There was no extinction noted on double simultaneous stimulation.
Coordination is intact by finger to nose bilaterally.
Lab Results: See below.
Neuro Imaging:
1. CT Head 05/05/24: No acute intracranial abnormality noted. Global atrophy with sequelae of moderate small vessel ischemic disease, similar to prior.
Differentials for the patient's presentation include:
1. Acute exacerbation of chronic gait dysfunction, subjective right hand and foot weakness, word finding difficulty. Etiology unclear, possible vascular given not taking OAC, possibly TME in the setting of several chronic conditions.
2. 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
3. Intermittent tremor possibly asterixis in the setting of CKD, not currently reproducible. Low concern for Parkinson disease given no rigidity/cogwheeling noted.
4. Severe vibration loss in bilateral toes, suggestive of neuropathy.
Patient has the following risk factors for their symptoms: Hx multiple cardiac surgeries, CKD on HD, HTN, HLD, Afib (not on OAC), NIDDM
IV Tenecteplase/IAT candidacy: Not a candidate due to outside of time window, NIHSS 0.
Recommendations:
-Continue aspirin 81mg daily, if MRI demonstrates a stroke will need to re-evaluate OAC usage.
-MRI brain noncontrast pending.
-Goal normotension. Orthostatic vital signs BID.
-Metabolic/infectious workup per primary team.
-Goal normoglycemia, hbA1c is 8.9.
-PT/OT/ST evaluations.
-NIHSS and neurological checks per unit guidelines.
-Provide patient with a stroke education packet.
-DVT prophylaxis.
Discussed patient care with: Dr. Barone, the patient
Vital Signs and Labs
-
Vital Signs and Labs:
Vital Signs
Temp Pulse Resp BP Pulse Ox
97.5 F 90 20 134/91 96
05/06/24 07:18 05/06/24 08:29 05/06/24 07:18 05/06/24 08:29 05/06/24 07:18
Lab Results
05/06/24 05:28
05/06/24 05:28
Sodium 134 mmol/L (135-145) L 05/06/24 05:28
Potassium 5.0 mmol/L (3.5-5.1) 05/06/24 05:28
BUN 62 mg/dl (9-20) H 05/06/24 05:28
Glucose 284 mg/dl (70-99) H 05/06/24 05:28
Calcium 9.2 mg/dl (8.4-10.2) 05/06/24 05:28
LDL Cholesterol, Calc 64 mg/dl 05/06/24 05:28
Vitamin B12 977 pg/ml (239-931) H 05/06/24 05:28
Medications
-
Active Medications
Generic Name Dose Route Start Last Admin
Trade Name Freq PRN Reason Stop Dose Admin
Acetaminophen 650 mg 05/06/24 00:58
Acetaminophen 325 Mg Tablet PO 06/03/24 00:57
Q4HPRN PRN
mild pain/CARLSON/temp> 100.4F
Amiodarone HCl 200 mg 05/06/24 22:00
Amiodarone 200 Mg Tablet PO 06/03/24 21:59
HS WENDY
Aspirin 81 mg 05/06/24 22:00
Aspirin 81 Mg (Enteric Coated) Tablet PO 06/03/24 21:59
HS WENDY
Atorvastatin Calcium 80 mg 05/06/24 22:00
Atorvastatin (Lipitor) 80 Mg Tablet PO 06/03/24 21:59
HS WENDY
Calcium Acetate 667 mg 05/06/24 08:00 05/06/24 08:29
Calcium Acetate 667 Mg Tablet PO 06/03/24 07:59 667 mg
MEALS WENDY Administration
Carvedilol 3.125 mg 05/06/24 08:00 05/06/24 08:29
Carvedilol 3.125 Mg Tablet PO 06/03/24 07:59 3.125 mg
BID WENDY Administration
Dextrose 12.5 grams 05/06/24 00:58
Dextrose 50% (0.5 Grams/Ml) 50 Ml Syringe IV 06/03/24 00:57
[id number] PRN
hypoglycemia
Protocol
Gabapentin 200 mg 05/06/24 22:00
Gabapentin 100 Mg Capsule PO 06/03/24 21:59
HS WENDY
Glucagon 1 mg 05/06/24 00:58
Glucagon 1 Mg Vial IM 06/03/24 00:57
PRN PRN
hypoglycemia
Protocol
Insulin Glargine 14 units/ 0.14 mls @ 0 mls/hr 05/06/24 22:00
Device SC 06/03/24 21:59
HS WENDY
As Directed
Insulin Aspart 0 units 05/06/24 07:30 05/06/24 08:40
Insulin Aspart Low Resistance 300 Units/3 Ml Pen.Injctr SC 06/03/24 07:29 3 units
AC WENDY Administration
Protocol
Insulin Aspart 12 units 05/06/24 07:30 05/06/24 08:41
Insulin Aspart (100 Units/Ml) 3 Ml Flexpen SC 06/03/24 07:29 12 units
AC WENDY Administration
Sodium Chloride 0 flush 05/06/24 02:00
Sodium Chloride 0.9% (Flush) Syringe IV 06/03/24 01:59
PER PROTOCOL WENDY
Tramadol HCl 100 mg 05/06/24 22:00
Tramadol Hcl 50 Mg Tablet PO 06/03/24 21:59
HS WENDY
Home Medications
�Medication �Instructions �Recorded
atorvastatin 80 mg tablet 80 mg PO HS High Cholesterol 03/05/23
calcium acetate 667 mg tablet 667 mg PO MEALS Kidney Disease 03/05/23
aspirin 81 mg tablet,delayed 81 mg PO HS Blood Clot 05/02/23
release Prevention/Tx
insulin aspart U-100 100 unit/mL 12 unit (0.12 mL) SC AC #15 mL 05/07/23
(3 mL) subcutaneous pen (Novolog
FlexPen U-100 Insulin aspart)
amiodarone 200 mg tablet (Pacerone) 200 mg PO HS Arrhythmia 07/17/23
carvedilol 3.125 mg tablet (Coreg) 3.125 mg PO BID Heart 07/17/23
Disease/Condition
gabapentin 100 mg capsule 200 mg PO HS Pain 07/17/23
insulin glargine 100 unit/mL (3 14 unit SC HS Diabetes 04/20/24
mL) subcutaneous pen (Lantus
Solostar U-100 Insulin)
tramadol 50 mg tablet 100 mg PO HS Pain 04/20/24
acetaminophen 325 mg tablet 625 mg PO Q4HPRN PRN mild pain 05/05/24
(Tylenol)
nitroglycerin 0.4 mg sublingual 0.4 mg sublingual [id number] PRN 05/05/24
tablet chest pain
NIH Stroke Score
Subsequent NIH Scale
Date of Subsequent NIH Scale: 05/06/24
Time of Subsequent NIH Scale: 10:30
NIH Stroke Score
Level of Consciousness: 0 - Alert
LOC Questions: 0-Answers both correctly
LOC Commands: 0-Performs both correctly
Best Horizontal Gaze: 0-Normal
Visual Segura: 0=Normal, no visual loss
Facial Palsy: 0=Normal, symmetrical
Motor - Right Arm: 0=No drift 10 seconds
Motor - Left Arm: 0=No drift 10 seconds
Motor - Right Le-No drift 5 seconds
Motor - Left Le-No drift 5 seconds
Limb Ataxia: 0-Absent
Sensation: 0-Normal
Best Language: 0-No aphasia
Dysarthria: 0-Normal
Extinction and Inattention: 0-No abnormality
Total Score:: 0

Documented by User: Eloisa Barone DO 05/06/24 16:33
NIH Stroke Score
NIH Stroke Score
Total Score:: 0
[2024-05-06 10:56] LABS: Glycohemoglobin (HgbA1c) 8.9 % (4.0-5.6)
[2024-05-06 11:29] LABS: Glucose - Point of Care 253 mg/dl (70-99)
--- NOTE | 2024-05-06 14:09 | W.CON.NEPH ---
Consultation
-
Date/Time Consultation Requested: 05/06/2024 7 AM
Date/Time Consultation Performed: 05/06/2024 2:00 PM
Requesting Provider: Dr. Contreras
Performing Provider: Dr. Holliday
Reason for Consultation: End-stage renal disease
Medical History
-
Chief Complaint: End-stage renal disease
History of Present Illness:
The patient is a 74-year-old male with a past medical history of end-stage renal disease who dialyzes Saturday and Saturdays at our [facility] dialysis unit. Has a history of paroxysmal relation and is chronically maintained on
amiodarone. He is rate controlled with carvedilol. He has a history of diabetes and is maintained on insulin therapy. He is maintained on calcium acetate with meals for his history of hyperphosphatemia. He presented to the hospital after
dialysis yesterday with acute exacerbation of chronic gait dysfunction with subjective right hand and foot weakness. Per his he has also had some intermittent speech changes throughout the past week.
Past Medical History
End-stage renal disease Saturday [facility] unit
Right upper extremity AV fistula
Ischemic cardiomyopathy
Paroxysmal atrial fibrillation
Hyperphosphatemia
Type 2 diabetes with neuropathy
COPD
History of coronary artery disease with previous stenting procedures in 2022 and CABG in April 2023
Hypertension
Social History
Tobacco: Non-Smoker
Alcohol: Occasional
Drug: None
Family History
no ckd
Allergies / Home Medications
Allergy/AdvReac Type Severity Reaction Status Date / Time
No Known Allergies Allergy Verified 05/05/24 16:23
�Medication �Instructions �Recorded �Confirmed �Type
atorvastatin 80 mg tablet 80 mg PO HS High Cholesterol 03/05/23 05/05/24 History
calcium acetate 667 mg tablet 667 mg PO MEALS Kidney Disease 03/05/23 05/05/24 History
aspirin 81 mg tablet,delayed 81 mg PO HS Blood Clot 05/02/23 05/05/24 History
release Prevention/Tx
insulin aspart U-100 100 unit/mL 12 unit (0.12 mL) SC AC #15 mL 05/07/23 05/05/24 Rx
(3 mL) subcutaneous pen (Novolog
FlexPen U-100 Insulin aspart)
amiodarone 200 mg tablet (Pacerone) 200 mg PO HS Arrhythmia 07/17/23 05/05/24 History
carvedilol 3.125 mg tablet (Coreg) 3.125 mg PO BID Heart 07/17/23 05/05/24 History
Disease/Condition
gabapentin 100 mg capsule 200 mg PO HS Pain 07/17/23 05/05/24 History
insulin glargine 100 unit/mL (3 14 unit SC HS Diabetes 04/20/24 05/05/24 History
mL) subcutaneous pen (Lantus
Solostar U-100 Insulin)
tramadol 50 mg tablet 100 mg PO HS Pain 04/20/24 05/05/24 History
acetaminophen 325 mg tablet 625 mg PO Q4HPRN PRN mild pain 05/05/24 05/05/24 History
(Tylenol)
nitroglycerin 0.4 mg sublingual 0.4 mg sublingual [id number] PRN 05/05/24 05/05/24 History
tablet chest pain
Review of Systems
-
History Source: Patient
All other systems: Negative unless noted
Musculoskeletal: Other (Shuffling gait)
Neurological: Other (Right leg weakness numbness of right hand incontinence reported)
Physical Exam
Vital Signs
Vital Signs
Temp Pulse Resp BP Pulse Ox
97.4 F 73 16 111/69 96
05/06/24 12:00 05/06/24 12:00 05/06/24 12:00 05/06/24 12:00 05/06/24 12:00
Lab Results
05/06/24 05:28
05/06/24 05:28
WBC 6.7 10^3/uL (4.8-10.8) 05/06/24 05:28
RBC 5.00 10^6/uL (4.70-6.10) 05/06/24 05:28
Hgb 14.1 g/dL (13.0-18.0) 05/06/24 05:28
Hct 44.4 % (39.0-52.0) 05/06/24 05:28
Plt Count 103 10^3/uL (130-400) L 05/06/24 05:28
Sodium 134 mmol/L (135-145) L 05/06/24 05:28
Potassium 5.0 mmol/L (3.5-5.1) 05/06/24 05:28
Chloride 89 mmol/L (98-107) L 05/06/24 05:28
Carbon Dioxide 28 mmol/L (22-30) 05/06/24 05:28
BUN 62 mg/dl (9-20) H 05/06/24 05:28
Creatinine 3.2 mg/dL (0.7-1.3) H 05/06/24 05:28
eGFR 19.68 05/06/24 05:28
Glucose 284 mg/dl (70-99) H 05/06/24 05:28
Calcium 9.2 mg/dl (8.4-10.2) 05/06/24 05:28
Albumin 3.4 g/dl (3.5-5.0) L 05/06/24 05:28
Physical Exam
General: AOx2, patient very lethargic time exam with sleeping
HEENT: PERRL, EOMI, Anicteric, Conjunctivae Clear, Ear/Nose Intact, Hearing Normal, Oropharynx Clear/Moist, Dentition Intact, Facial Symmetry, Neck Supple, Neck: Trachea Midline, No JVD and No Thyromegaly, no Bruits
Respiratory: Clear to auscultation bilaterally with normal lung exersion
Cardiac: S1/S2 and Regular Rate/Rhythm
Breast: Deferred by me
Abdomen: Soft, Nontender, Nondistended, Normal Bowel Sounds and No Hepatosplenomegaly
Rectal: Deferred by Provider
Genito-urinary: No Costovertebral Tenderness
Extremities: No Clubbing, No Cyanosis and No Edema
Skin: No Rash or open lesions
Neuro: Nonfocal/Grossly Intact, CN II-XII (Intact) and Strength (Musculoskeletal exam 5 out of 5 both upper and lower extremities)
Hematologic/Lymphatic: No Cervical Lymphadenopathy, No Submandibular Lymphadenopathy and No Supraclavicular Lymphadenopathy
Psych: Mood/flat withdrawn,
Vascular: plus 1 pedal and radial pulses
Vascular Access: AVF (Right upper extremity with weak thrill and bruit)
Data Reviewed
-
CT Scan: Report Reviewed by me (CT scan of head no acute intracranial abnormality global atrophy moderate small vessel ischemic disease)
Labs: Labs Reviewed by me (BMP CBC reviewed)
Old Records: Reviewed (Reviewed previous nephrology consult from April 2023 we were consulted for ESRD in setting of non-ST elevation MA)
Assessment/Plan
-
Impression:
ESRD TTS [facility]
Gait disturbance right lower extremity weakness /unstable gait/reported dysarthria
Hypertension
Hyperphosphatemia
Paroxysmal atrial fibrillation
Insulin requiring diabetes
Ischemic cardiomyopathy
Plan:
Dialysis tomorrow orders provided
Blood pressure stable on Coreg and dry weight
Maintain calcium acetate with meals for hyperphosphatemia
Appropriate dietary and fluid restrictions ordered for ESRD
Neurological workup in regards to gait dysfunction right lower extremity weakness and dysarthria:MRI of brain pending
Right forearm fistula with weak thrill and bruit , may need vascular surgery to provide fistulogram if dysfunction tomorrow on dialysis
--- NOTE | 2024-05-06 16:22 | CM ---
Patient sleeping . Spoke with SO Radhika and dgt Belinda. They live in [address] with 1 step to enter.He is assisted in all activities of daily living.He has HD Jessee Renee at [facility] on [address] [place].He uses a cane and walker.Louie letter
given to SO and prasanna Trevino . They declined to sign LOUIE letter.Louie on chart.
No VN hx / No SNF history
Pharmacy [facility]
PCP DR Dougherty
PLAN Will need PT OT for dc planning.
[2024-05-06 17:37] LABS: Glucose - Point of Care 172 mg/dl (70-99)
[2024-05-06] MEDS: NOVOLOG FLEXPEN-LOW RESISTANCE 1 UNITS SC (17:57)
[2024-05-06 21:54] LABS: Glucose - Point of Care 111 mg/dl (70-99)
[2024-05-06] MEDS: LANTUS 0.14 UNITS SC (22:32)
[2024-05-06] MEDS: ASPIR LOW (ENTERIC COATED) 81 MG PO (22:33)
[2024-05-06] MEDS: LIPITOR 80 MG PO (22:33)
[2024-05-06] MEDS: PACERONE 200 MG PO (22:37)
[2024-05-06] MEDS: COREG PO (22:37)
[2024-05-07] VITALS (7 sets, daily range): BP systolic 104–137; BP diastolic 59–79; PULSE 68–75; BMI 20.7
[2024-05-07] MEDS: PHOSLO 667 MG PO ×3 (07:35→16:46)
[2024-05-07] MEDS: COREG PO ×2 (07:35→19:46)
[2024-05-07 07:40] LABS: Glucose - Point of Care 153 mg/dl (70-99)
[2024-05-07] MEDS: NOVOLOG FLEXPEN-LOW RESISTANCE SC ×2 (08:01→12:32)
[2024-05-07] MEDS: NOVOLOG FLEXPEN 12 UNITS SC ×3 (08:03→16:46)
[2024-05-07 08:37] LABS: % Basophils 0.8 % (0-2); % Eosinophils 2.9 % (0-6); % Immature Granulocytes 0.3 % (0-0.5); % Lymphocytes 16.6 % (20.5-51.1); % Monocytes 10.8 % (1.7-9.3); % Neutrophils 68.6 % (42.2-75.2); Absolute Basophils 0.1 10^3/uL (0-0.2); Absolute Eosinophils 0.2 10^3/uL (0-0.7); Absolute Monocytes 0.7 10^3/uL (0.1-0.6); Absolute Neutrophils 4.2 10^3/uL (1.4-6.5); Hematocrit 43.9 % (39.0-52.0); Hemoglobin 14.2 g/dL (13.0-18.0); Mean Corp Hgb Conc. 32.3 g/dL (33.0-37.0); Mean Corpuscular Hgb 28.7 pg (27.0-31.0); Mean Corpuscular Volume 88.7 fL (80.0-94.0); Mean Platelet Volume 11.1 fL (7.4-10.4); Nucleated Red Blood Cells % 0.3 % (-); Platelet Count 106 10^3/uL (130-400); Red Blood Cell Count 4.95 10^6/uL (4.70-6.10); Red Cell Dist. Width 18.7 % (11.5-14.5); White Blood Cell Count 6.2 10^3/uL (4.8-10.8)
--- NOTE | 2024-05-07 08:49 | W.PN.HOSP.TC ---
Today's Communication/Plan
-
Neurology follow-up. PT OT. Discharge planning in progress
Assessment / Plan
Assessment / Plan
Physical exam:
General: Well Developed, Well Nourished and No Apparent Distress
HEENT: Normocephalic, Atraumatic and Moist Mucous Membranes
Respiratory: Clear to Auscultation; Negative Wheezes, Rales or Rhonchi
Cardiac: Regular Rhythm and S1/S2
GI: Soft, Nontender and Nondistended
Musculoskeletal: No Clubbing, No Cyanosis and No Edema
Neuro: Alert and oriented, no gross neurological deficits
Psych: Calm
A/P:
Acute toxic metabolic encephalopathy-->asterixis-tremors/?Right hand weakness/transient speech difficulties-word finding difficulty/transient mental status changes/urinary incontinence:
Ruled out acute stroke
MRI of the brain no acute infarct but it does show some chronic lacunar infarct in the right cerebellum and keaton.
Neurology consult appreciated
Continue aspirin
PT OT eval
Needs to be cautious with tramadol and gabapentin at nighttime.
Will reach out to family
sales team manager for discharge disposition
Paroxysmal atrial fibrillation:
On antiarrhythmics, amiodarone 200 mg daily
On Eliquis as outpatient but patient is not taking it due to risk of bleeding
On aspirin
End-stage renal disease on hemodialysis:
Dialysis per nephrology--> planning only 0.5 kg of ultrafiltration per renal since not significantly volume overloaded
Continue calcium acetate for hyperphosphatemia
There had been issues with RUE fistula in the recent past but currently working well without any problems.
CAD:
On aspirin and statins and beta-blockers.
s/p PCI to LAD, RCA, and circumflex 2014
s/p PCI 11/[address] [facility], details unknown (?OM1 and LM-LAD PCI)
s/p CABG x5 - GARZA-lad/lad, AO-SVG-OM/Cx, Ao-SVG-RCA, on pump, KETURAH MAYS clip 05/02/23
Diabetes mellitus type 2:
Insulin sliding scale
On Lantus 14 units nightly
Hypertension:
On carvedilol 3.125 mg twice a day
Monitor blood pressure adjust medications accordingly
Chronic HFrEF:
Volume will be managed by dialysis
Continue beta-blockers
Diabetic neuropathy:
Continue gabapentin
DVT prophylaxis:
SCDs
CODE STATUS:
Full code
Anticipated Discharge: Today
Subjective/Interval History
-
Date of Service: May 07, 2024
Patient feels well today. Getting hemodialysis
Objective Data
-
Labs:
Laboratory Results
05/07/24
07:57
WBC 6.2
Hgb 14.2
Hct 43.9
Plt Count 106 L
Sodium Pending
Potassium Pending
Chloride Pending
Carbon Dioxide Pending
BUN Pending
Creatinine Pending
Glucose Pending
Calcium Pending
Vital Signs:
Vital Signs
Temp Pulse Resp BP Pulse Ox
98.4 F 82 20 133/78 94
05/07/24 03:36 05/07/24 03:36 05/07/24 03:36 05/07/24 03:36 05/07/24 03:36
I&O
05/06/24 05/07/24 05/08/24
06:59 06:59 06:59
Intake Total 480 / 480 90 / 90
Output Total 0 / 0
Balance 480 / 480 90 / 90
[2024-05-07 09:02] LABS: Blood Urea Nitrogen 73 mg/dl (9-20); Calcium 9.2 mg/dl (8.4-10.2); Carbon Dioxide 26 mmol/L (22-30); Chloride 91 mmol/L (98-107); Estimated Creatinine Clearance 15 ml/min; Glucose 287 mg/dl (70-99); Sodium 133 mmol/L (135-145); eGFR 15.52
--- NOTE | 2024-05-07 09:21 | W.PN.NEPH.HD ---
Assessment
-
Patient seen on dialysis
Remains lethargic and weak
Will only perform 0.5 kg UF as patient does not appear to be clinically volume overloaded
Progress Note - Hemodialysis
-
Date of Service: May 07, 2024
Duration: 30 minutes and 3 hours
Potassium Bath: 2
Calcium Bath: 2.5
Opti-Dialyzer: 160
Ultrafiltration: Other (.5 kg)
Blood Flow: 400
Dialysate Flow: 600
Heparin: none
EPO: none
[2024-05-07] MEDS: MANNITOL 25% 12.5 GRAMS IV (10:05)
[2024-05-07 12:30] LABS: Glucose - Point of Care 130 mg/dl (70-99)
--- NOTE | 2024-05-07 12:30 | CM ---
PT recommended [facility]; Notified Attending and requested PM&R Consult; Referral sent via [facility]
CM spoke with via phone; she is agreeable with plan for [facility] if referral is accepted
--- NOTE | 2024-05-07 13:28 | W.PN.NEURO.1 ---
Addendum entered and electronically signed by Eloisa Barone DO 05/07/24 20:39:
I have personally examined the patient. I agree with the [facility] INSPECTOR's Note.
My addenda:
74 year-old male with an episode of 'freezing up' and worsening of gait dysfunction.
Appears to be back to his baseline; still mildly confused; unable to state 's again, knew location and date and name of president; better at providing history today.
MRI brain showed: No acute infarct. Atrophy with chronic microvascular white matter ischemic change. Small chronic lacunar infarct in the right cerebellum and keaton.
He was not previously aware of these strokes. Still not interested in anticoagulation given bleeding from fistula site. Understands risks of potential for repeat strokes. I do not think his MRI clearly looks like NPH.
This event may have been a recrudescence of old stroke symptoms with fluid shifts after dialysis. He also has some mild R hand pill rolling tremor today concerning for possible PD which could cause 'freezing up' and gait dysfunction.
He should f/u with neurology as an OP; would benefit from further cognitive testing and potentially a GREGORY scan. Would also benefit from MRA head, echo to complete stroke workup but this can be done as an OP.
Reviewed s/s of stroke, importance of calling 911 should these occur.
Neurology is signing off. Please call with further questions.
Original Note:
Today's Communication / Plan
-
.
Neuro Assessment/Plan
Assessment
74 year-old male with worsened chronic gait dysfunction, an episode of 'freezing up' after dialysis and worsening confusion as well as recent urinary incontinence. Has been seen in the past by [facility] in workup for NPH; he was felt not to
have this. He is off anticoagulation due to his own concerns with bleeding
-MRI brain 05/06/24: No acute infarct. Atrophy with chronic microvascular white matter ischemic change. Small chronic lacunar infarct in the right cerebellum and keaton.
-Carotid ultrasound 04/26/22: Atherosclerotic plaque bilateral common carotid artery/carotid bulb/proximal internal and external carotid arteries. Velocity profile consistent with less than 50% stenosis bilateral internal carotid arteries. Antegrade
flow bilateral vertebral arteries.
1. Acute exacerbation of chronic gait dysfunction, subjective right hand and foot weakness, word finding difficulty. Etiology unclear, possibly TME in the setting of several chronic conditions. MRI brain negative for acute stroke.
2. MRI brain demonstrates a small old right cerebellar infarct and tiny old pontine infarct. This could possibly contribute to chronic gait dysfunction.
3. Afib, refuses anticoagulation due to history of fistula site bleeding.
4. 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
5. Intermittent tremor possibly asterixis in the setting of CKD, not currently reproducible. Low concern for Parkinson disease given no rigidity/cogwheeling noted.
6. Severe vibration loss in bilateral toes, suggestive of neuropathy.
Plan
-Continue aspirin 81mg daily. Would reconsider OAC usage given Afib and old strokes on MRI brain.
-Goal normotension. Orthostatic vital signs BID.
-Metabolic/infectious workup per primary team.
-Goal normoglycemia, hbA1c is 8.9.
-PT/OT/ST evaluations.
-Neurological checks per unit guidelines.
-Provide patient with a stroke education packet.
-DVT prophylaxis.
-Consider outpatient neuropsychological testing.
-Patient can follow-up with Neurology as an outpatient, may see the [facility] B[employer] INSPECTOR or one of the physicians.
Subjective/Objective
Subjective Data
Date of Service: May 07, 2024
No acute events overnight. Patient is currently undergoing HD, offers no complaints today.
Objective Data
Vital Signs
Temp Pulse Resp BP Pulse Ox
97.8 F 80 18 124/69 99
05/07/24 07:00 05/07/24 07:00 05/07/24 07:00 05/07/24 07:00 05/07/24 07:00
Lab Results
05/07/24 07:57
05/07/24 07:57
Sodium 133 mmol/L (135-145) L 05/07/24 07:57
Potassium 5.0 mmol/L (3.5-5.1) 05/07/24 07:57
BUN 73 mg/dl (9-20) H 05/07/24 07:57
Glucose 287 mg/dl (70-99) H 05/07/24 07:57
Calcium 9.2 mg/dl (8.4-10.2) 05/07/24 07:57
LDL Cholesterol, Calc 64 mg/dl 05/06/24 05:28
Vitamin B12 977 pg/ml (239-931) H 05/06/24 05:28
Patient Allergies
No Known Allergies Allergy (Verified 05/05/24 16:23)
LDL Level: <70, continue statin
Review of Systems
-
History Source: Patient
EENT: Negative Blurry Vision, Decreased Vision or Swallowing Difficulty
Respiratory: Negative Cough or Trouble Breathing
Cardiac: Negative Chest Pain or Palpitations
Abdomen/GI: Negative Nausea
Neuro: Weakness; Negative Dizzy, Headache, Numbness, Ataxia, Tremors or Speech Problem
Physical Exam
-
General: Appears Chronically Ill
Eyes: No Ptosis and PERRLA
HEENT: Normocephalic and Atraumatic
Neck: Full Range of Motion
GI: Non-distended
Extremities: No Clubbing, No Cyanosis and Edema +1
Psych: Unremarkable
Extended Neurological Exam
Mood & Affect: Mood Unremarkable and Affect Unremarkable
Attention Span & Concentration: Awake, Alert and Interactive
Memory: Unremarkable and Able to Recall
Tremor: Hand Tremor Absent and Head Tremor Absent
Involuntary Movement: None
Speech: Quality Unremarkable, Quantity Unremarkable and Rate of Production Unremarkable
Cranial Nerve II: Left Eye: Pupillary Reactivity Unremarkable, Pupillary Size Unremarkable and Visual Segura Intact
Cranial Nerve II: Right Eye: Pupillary Reactivity Unremarkable, Pupillary Size Unremarkable and Visual Segura Intact
Cranial Nerves III, IV, : Extraocular Movement: Extraocular Movement Full in all Directions
Cranial Nerve VII: Facial Symmetry: Normal Facial Symmetry
Cranial Nerve VIII: Hearing: Unremarkable Hearing to Normal Conversational Volume
Cranial Nerve XI: Shoulder Shrug: Unremarkable
Cranial Nerve XII: Tongue Protusion: Midline
Muscle Strength, Overall: Full Throughout
Muscle Bulk & Tone: Bulk Unremarkable and Tone Unremarkable
Pronator Drift: No Drift in Upper Extremities and No Drift in Lower Extremities
Touch Sensation: Double Simultaneous Stimulation Unremarkable
Coordination: [place]-issj-fiemqc Testing Unremarkable
Babinski Sign: Absent Bilaterally
Gait & Station: Unable to Assess
Data Reviewed
-
CT Head: Report Reviewed and Image Reviewed
MRI Head: Report Reviewed and Image Reviewed
Labs: Report Reviewed
Lipid Profile: Report Reviewed
HgbA1C: Report Reviewed
Reviewed with: Physician and Patient
Medications
-
Active Medications
Generic Name Dose Route Start Last Admin
Trade Name Freq PRN Reason Stop Dose Admin
Acetaminophen 650 mg 05/06/24 00:58
Acetaminophen 325 Mg Tablet PO 06/03/24 00:57
Q4HPRN PRN
mild pain/CARLS[place]/temp> 100.4F
Amiodarone HCl 200 mg 05/06/24 22:00 05/06/24 22:37
Amiodarone 200 Mg Tablet PO 06/03/24 21:59 200 mg
HS WENDY Administration
Aspirin 81 mg 05/06/24 22:00 05/06/24 22:33
Aspirin 81 Mg (Enteric Coated) Tablet PO 06/03/24 21:59 81 mg
HS WENDY Administration
Atorvastatin Calcium 80 mg 05/06/24 22:00 05/06/24 22:33
Atorvastatin (Lipitor) 80 Mg Tablet PO 06/03/24 21:59 80 mg
HS WENDY Administration
Calcium Acetate 667 mg 05/06/24 08:00 05/07/24 12:32
Calcium Acetate 667 Mg Tablet PO 06/03/24 07:59 667 mg
MEALS WENDY Administration
Carvedilol 3.125 mg 05/06/24 08:00 05/07/24 07:35
Carvedilol 3.125 Mg Tablet PO 06/03/24 07:59 Not Given
BID WENDY
Dextrose 12.5 grams 05/06/24 00:58
Dextrose 50% (0.5 Grams/Ml) 50 Ml Syringe IV 06/03/24 00:57
[id number] PRN
hypoglycemia
Protocol
Gabapentin 200 mg 05/06/24 22:00 05/06/24 22:33
Gabapentin 100 Mg Capsule PO 06/03/24 21:59 200 mg
HS WENDY Administration
Glucagon 1 mg 05/06/24 00:58
Glucagon 1 Mg Vial IM 06/03/24 00:57
PRN PRN
hypoglycemia
Protocol
Insulin Glargine 14 units/ 0.14 mls @ 0 mls/hr 05/06/24 22:00 05/06/24 22:32
Device SC 06/03/24 21:59 0.14 mls
HS WENDY Administration
As Directed
Insulin Aspart 0 units 05/06/24 07:30 05/07/24 12:32
Insulin Aspart Low Resistance 300 Units/3 Ml Pen.Injctr SC 06/03/24 07:29 Not Given
AC WENDY
Protocol
Insulin Aspart 12 units 05/06/24 07:30 05/07/24 12:32
Insulin Aspart (100 Units/Ml) 3 Ml Flexpen SC 06/03/24 07:29 12 units
AC WENDY Administration
Mannitol 12.5 grams 05/07/24 08:00 05/07/24 10:05
Mannitol 25% (12.5 Grams/50 Ml) Vial IV 05/07/24 23:59 12.5 grams
HD-Q1HPRN PRN Administration
sbp less then 100
Sodium Chloride 0 flush 05/06/24 02:00
Sodium Chloride 0.9% (Flush) Syringe IV 06/03/24 01:59
PER PROTOCOL WENDY
Sodium Chloride 10 ml 05/07/24 08:00
Sodium Chloride (4 Meq/Ml) 30 Ml Vial *For Hemodialysis* IV 05/07/24 23:59
HD-Q1HPRN PRN
cramps
Tramadol HCl 100 mg 05/06/24 22:00 05/06/24 22:34
Tramadol Hcl 50 Mg Tablet PO 06/03/24 21:59 100 mg
HS WENDY Administration
Home Medications
�Medication �Instructions �Recorded
atorvastatin 80 mg tablet 80 mg PO HS High Cholesterol 03/05/23
calcium acetate 667 mg tablet 667 mg PO MEALS Kidney Disease 03/05/23
aspirin 81 mg tablet,delayed 81 mg PO HS Blood Clot 05/02/23
release Prevention/Tx
insulin aspart U-100 100 unit/mL 12 unit (0.12 mL) SC AC #15 mL 05/07/23
(3 mL) subcutaneous pen (Novolog
FlexPen U-100 Insulin aspart)
amiodarone 200 mg tablet (Pacerone) 200 mg PO HS Arrhythmia 07/17/23
carvedilol 3.125 mg tablet (Coreg) 3.125 mg PO BID Heart 07/17/23
Disease/Condition
gabapentin 100 mg capsule 200 mg PO HS Pain 07/17/23
insulin glargine 100 unit/mL (3 14 unit SC HS Diabetes 04/20/24
mL) subcutaneous pen (Lantus
Solostar U-100 Insulin)
tramadol 50 mg tablet 100 mg PO HS Pain 04/20/24
acetaminophen 325 mg tablet 625 mg PO Q4HPRN PRN mild pain 05/05/24
(Tylenol)
nitroglycerin 0.4 mg sublingual 0.4 mg sublingual [id number] PRN 05/05/24
tablet chest pain
[2024-05-07 16:41] LABS: Glucose - Point of Care 162 mg/dl (70-99)
[2024-05-07] MEDS: NOVOLOG FLEXPEN-LOW RESISTANCE 1 UNITS SC (16:45)
[2024-05-07 21:28] LABS: Glucose - Point of Care 145 mg/dl (70-99)
[2024-05-07] MEDS: ULTRAM 100 MG PO (22:56)
[2024-05-07] MEDS: ASPIR LOW (ENTERIC COATED) 81 MG PO (22:56)
[2024-05-07] MEDS: NEURONTIN 200 MG PO (22:56)
[2024-05-07] MEDS: LIPITOR 80 MG PO (22:56)
[2024-05-07] MEDS: PACERONE 200 MG PO (22:57)
[2024-05-07] MEDS: LANTUS 0.14 UNITS SC (22:57)
[2024-05-08] VITALS (7 sets, daily range): BP systolic 105–132; BP diastolic 58–84; PULSE 67–72; BMI 20.7
--- NOTE | 2024-05-08 05:48 | CON.MD ---
Documented by User: Kendra Gonzales PA-C 05/08/24 19:43
Consultation - Medical
-
Referring Provider: Dimitri Washington
Chief Complaint:�
�
History of Present Illness:�74 year-old male with PMH of (Coronary Artery Disease s/p Cardiac Stents,Paroxysmal Atrial Fibrillation,ESRD on HD Saturday,Essential Hypertension,Hyperlipidemia,Diabetes Mellitus, Type II, Chronic
shuffling gait,COPD, ischemic cardiomyopathy EF 25 to 30%, right inguinal hernia) presented to the ED o with worsened chronic gait dysfunction, an episode of 'freezing up' after dialysis and worsening confusion as well as recent urinary
incontinence. Has been seen in the past by [facility] Nsx in workup for NPH; he was felt not to have this. He is off anticoagulation due to his own concerns with bleeding
MRI brain showed: No acute infarct. Atrophy with chronic microvascular white matter ischemic change. Small chronic lacunar infarct in the right cerebellum and keaton.
He was not previously aware of these strokes. Still not interested in anticoagulation given bleeding from fistula site. Understands risks of potential for repeat strokes. This event may have been a recrudescence of old stroke symptoms with fluid
shifts after dialysis. He also has some mild R hand pill rolling tremor today concerning for possible PD which could cause 'freezing up' and gait dysfunction. He should f/u with neurology as an OP; would benefit from further cognitive testing and
potentially a GREGORY scan. Would also benefit from MRA head, echo to complete stroke workup but this can be done as an OP.
�
Past Medical History:�Coronary Artery Disease s/p Cardiac Stents,Paroxysmal Atrial Fibrillation,ESRD on HD Saturday,Essential Hypertension,Hyperlipidemia,Diabetes Mellitus, Type II, Chronic shuffling gait,COPD, ischemic
cardiomyopathy EF 25 to 30%, right inguinal hernia, prior CVA with partial left eye blindness, anemia
Procedure History:� CAD/cardiac stent 2022, LAD, RCA and circumflex stent 2022, CABG x 5 vessel GARZA-lad/lad, AO-SVG-OM/Cx, Ao-SVG-RCA, on pump, MAZE, KETURAH clip 05/02/23 , RUE AV Fistula
Family History:�non contributory
�
Social History:�
Functional Level Premorbidly:�Independent self-care at cane level. has been assisting with ADL for the past week
Functional Level Currently:�Grooming�supervision, toileting�min assist, bed mobility�supervision, ambulation, contact-guard to min assist for ambulation in [place], less unsteady than prior, no sway
�
Tobacco:�Denies�
Alcohol:�Occasional
Drug use:�Denies�
�
Lives with:�Family, in-law suite at son's home.
24-hour assistance available:�
Number of floors:1�
# steps to enter:�none
# steps to second floor:
Potential First floor set up:�yes
Driving:�
Occupation: Retired�
�
Allergies:�
Allergy/AdvReac Type Severity Reaction Status Date / Time
No Known Allergies Allergy Verified 05/05/24 16:23
Review of Systems:�
Constitutional: (x) Normal _
Eye: (x) Normal _
Ear/Nose/Throat: (x) Normal _
Respiratory: (x) Normal _
Cardiovascular: (x) A-Fib
Gastrointestinal: (x) Normal _
Genitourinary: (x) normal
Musculoskeletal: (x) Normal _
Integumentary: (x) Normal _
Neurologic: (x)
Psychiatric: (x) Normal _
Endocrine: (x) Normal _
Hematologic/Lymphatic:
Allergic/Immunologic: (x) Normal _
�
Medications:�
Active Current Visit Medication List
Category Date Time Status
Acetaminophen [Tylenol] Med 05/06/24 00:58 Active
650 mg PO Q4HPRN PRN
Amiodarone [Pacerone] Med 05/06/24 22:00 Active
200 mg PO HS
Aspirin Low Dose EC [Aspir Low (Enteric Coated)] Med 05/06/24 22:00 Active
81 mg PO HS
Atorvastatin [Lipitor] Med 05/06/24 22:00 Active
80 mg PO HS
Calcium Acetate [Phoslo] Med 05/06/24 08:00 Active
667 mg PO MEALS
Carvedilol [Coreg] Med 05/06/24 08:00 Active
3.125 mg PO BID
Dextrose 50%-Water [Dextrose 50% Syringe] Med 05/06/24 00:58 Active
12.5 grams IV [id number] PRN
Flush (0.9% Sodium Chloride) [Flush (Nss)] Med 05/06/24 02:00 Active
See Dose Instructions IV PER PROTOCOL
Gabapentin [Neurontin] Med 05/06/24 22:00 Active
200 mg PO HS
Glucagon [GlucaGen] Med 05/06/24 00:58 Active
1 mg IM PRN PRN
Insulin Aspart Corrective Low [Novolog Flexpen-Low Med 05/06/24 07:30 Active
Resistance]
See Protocol SC AC
Insulin Aspart Pen [Novolog Flexpen] Med 05/06/24 07:30 Active
12 units SC AC
Insulin Glargine Lantus [Lantus] 14 units Med 05/06/24 22:00 Active
Subcutaneous Insulin Syringe [Syringe-Insulin] 0 unit
SC HS
Tramadol HCl [Ultram] Med 05/06/24 22:00 Active
100 mg PO HS
Vitals:�
Temp Pulse Resp BP Pulse Ox
97.6 F 67 16 107/58 99
05/08/24 15:45 05/08/24 15:45 05/08/24 15:45 05/08/24 15:45 05/08/24 15:45
Height 5 ft 8 in
Actual Weight 61.83 kg
Body Mass Index (BMI) 20.7
Physical Exam:�
General Appearance/Observation: Well-developed, well-nourished male in no apparent distress.�
Pain/Comfort Assessment: Denies�
Mood/Affect: Appropriate�
�
Integumentary/Operative Site:�
�� Pressure Ulcer Evaluation: absent over heels.�
�
Eyes: Conjunctiva/Lids: normal���� Pupils: pupils equal round
Ears/Nose/Throat: oral mucosa moist,� throat clear.������������ Lips/Teeth/Gums: normal�
Cardiovascular: Heart: regular, murmur�
Pulses: dorsalis pedis 2+ bilaterally�
Respiratory: Respiratory Effort/Chest Expansion: normal������� Auscultation: Clear to auscultation bilaterally�
Gastrointestinal: abdomen not tender, no distension, normal abdominal bowel sounds
Genitourinary: no lee
Extremities:�Edema: None�Cyanosis: None�Trophic�changes: None
�
Neurology Exam:
Orientation: Alert, Oriented to self, Time, Place�
Memory: Intact for recent medical concerns
Comprehension: Intact
Two step command: Intact
Cranial Nerves:
�� CNII:�Pupillary light reflex: Intact����
�� CN III, IV, : Extraocular muscles: Intact�
�� CN V:�Facial Sensation�at�Forehead: Intact,�Maxilla: Intact,�Mandible: Intact
�� CN VII:�Facial movement: Symmetric
�� CN VIII:�Hearing: Normal
�� CN IX/X:�Speech & swallow: Normal,�Position of Uvula: Midline
�� CN XI:�Shoulder shrug: weakness on left
��
Sensory:
�� Light touch: Intact in bilateral upper and lower extremities
��
Reflexes:
�� Biceps: 0 bilaterally
�� Brachioradialis: 0 bilaterally
�� Triceps: 0 bilaterally
�� Patellar: 0 bilaterally
�� Achilles: 0 bilaterally
�� Babinski: Down going bilaterally
�� Clonus: None
�� Dong: Negative bilaterally�
Cerebellar: Dysmetria/Ataxia: NT
Musculoskeletal: Motor: (Manual muscle scale 0-5)�
Muscle SA EF WE EE FF FA HF KE DF EHL PF
Right� 5 5 5 5 5 4 4
Left 4 5 4 5 4 4 4 4
�
Tone: Normal in all extremities�
Range of Motion: Passively within normal limits in all extremities�
�
Lab Results
Labs
WBC 6.2 10^3/uL (4.8-10.8) 05/07/24 07:57
RBC 4.95 10^6/uL (4.70-6.10) 05/07/24 07:57
Hgb 14.2 g/dL (13.0-18.0) 05/07/24 07:57
Hct 43.9 % (39.0-52.0) 05/07/24 07:57
MCV 88.7 fL (80.0-94.0) 05/07/24 07:57
MCH 28.7 pg (27.0-31.0) 05/07/24 07:57
MCHC 32.3 g/dL (33.0-37.0) L 05/07/24 07:57
RDW 18.7 % (11.5-14.5) H 05/07/24 07:57
Plt Count 106 10^3/uL (130-400) L 05/07/24 07:57
MPV 11.1 fL (7.4-10.4) H 05/07/24 07:57
Abs Immat Gran (auto) 0.0 10^3/uL (0-0.05) 05/07/24 07:57
Absolute Neuts (auto) 4.2 10^3/uL (1.4-6.5) 05/07/24 07:57
Absolute Lymphs (auto) 1.0 10^3/uL (1.2-3.4) L 05/07/24 07:57
Absolute Monos (auto) 0.7 10^3/uL (0.1-0.6) H 05/07/24 07:57
Absolute Eos (auto) 0.2 10^3/uL (0-0.7) 05/07/24 07:57
Absolute Basos (auto) 0.1 10^3/uL (0-0.2) 05/07/24 07:57
Immature Gran % 0.3 % (0-0.5) 05/07/24 07:57
Neutrophils % 68.6 % (42.2-75.2) 05/07/24 07:57
Lymphocytes % 16.6 % (20.5-51.1) L 05/07/24 07:57
Monocytes % 10.8 % (1.7-9.3) H 05/07/24 07:57
Eosinophils % 2.9 % (0-6) 05/07/24 07:57
Basophils % 0.8 % (0-2) 05/07/24 07:57
Nucleated RBC % 0.3 % (-) 05/07/24 07:57
Sodium 133 mmol/L (135-145) L 05/07/24 07:57
Potassium 5.0 mmol/L (3.5-5.1) 05/07/24 07:57
Chloride 91 mmol/L (98-107) L 05/07/24 07:57
Carbon Dioxide 26 mmol/L (22-30) 05/07/24 07:57
BUN 73 mg/dl (9-20) H 05/07/24 07:57
Creatinine 3.9 mg/dL (0.7-1.3) H 05/07/24 07:57
Estimated Creat Clear 15 ml/min 05/07/24 07:57
eGFR 15.52 05/07/24 07:57
Glucose 287 mg/dl (70-99) H 05/07/24 07:57
Hemoglobin A1c 8.9 % (4.0-5.6) H 05/06/24 05:28
Calcium 9.2 mg/dl (8.4-10.2) 05/07/24 07:57
Total Bilirubin 1.1 mg/dl (0.2-1.3) 05/06/24 05:28
AST 28 U/L (17-59) 05/06/24 05:28
ALT 30 U/L (0-50) 05/06/24 05:28
Alkaline Phosphatase 95 U/L (38-126) 05/06/24 05:28
Total Protein 6.2 g/dl (6.3-8.2) L 05/06/24 05:28
Albumin 3.4 g/dl (3.5-5.0) L 05/06/24 05:28
Triglycerides 108 mg/dl (10-149) 05/06/24 05:28
Total Cholesterol 115 mg/dl (50-199) 05/06/24 05:28
LDL Cholesterol, Calc 64 mg/dl 05/06/24 05:28
VLDL Cholesterol, Calc 21 mg/dl (0-30) 05/06/24 05:28
HDL Cholesterol 30 mg/dl 05/06/24 05:28
Vitamin B12 977 pg/ml (239-931) H 05/06/24 05:28
TSH (Reflex) 3.11 uIU/ml (0.47-4.68) 05/06/24 05:28
Urine Color Yellow 05/05/24 21:17
Urine Clarity Clear (Clear) 05/05/24 21:17
Urine pH 6.5 (5.0-9.0) 05/05/24 21:17
Ur Specific [place] 1.015 (<1.030) 05/05/24 21:17
Urine Ketones Negative (Negative) 05/05/24 21:17
Ur Occult Blood Reflex Trace (Negative) A 05/05/24 21:17
Urine Nitrite (Reflex) Negative (Negative) 05/05/24 21:17
Urine Bilirubin Negative (Negative) 05/05/24 21:17
Urine Urobilinogen Negative (Neg - 1+) 05/05/24 21:17
Leukocyte Esterase Rfl Negative (Negative) 05/05/24 21:17
Urine RBC 3-6 /HPF (0-2) A 05/05/24 21:17
Urine WBC (Reflex) 0-2 /HPF (0-5) 05/05/24 21:17
Ur Squamous Epith Cells 0-2 /LPF (Few) 05/05/24 21:17
Urine Bacteria (Reflex) Few (Negative) A 05/05/24 21:17
Urine Mucus Few 05/05/24 21:17
Urine Glucose 2+ (Negative) A 05/05/24 21:17
Urine Albumin (Reflex) 2+ (Neg - Trace) A 05/05/24 21:17
POC Glucose 175 mg/dl (70-99) H 05/08/24 16:52
�
Diagnostic Results:�as per HPI�
�
Assessment: 74 year-old male with PMH of (Coronary Artery Disease s/p Cardiac Stents,Paroxysmal Atrial Fibrillation,ESRD on HD Saturday,Essential Hypertension,Hyperlipidemia,Diabetes Mellitus, Type II, Chronic shuffling gait,COPD,
ischemic cardiomyopathy EF 25 to 30%, right inguinal hernia) presented to the ED o with worsened chronic gait dysfunction, an episode of 'freezing up' after dialysis and worsening confusion
Plan�
PT/OT to increase independence with ADLs, improve balance, coordination, endurance, strength, mobility, community reintegration, decreased burden of care on others and family education.�
Gait Dysfunction: OP neurology for cognitive testing and possible GREGORY scan for PD
ESRD:TTS [facility]. HD
Paroxysmal atrial fibrillation:Amiodarone, asa, coreg
Psych: Psychology consult.� Monitor mood, adjust as needed.�
Skin: monitor for pressure sores/rashes/lesions.�
Pain: acetaminophen as needed, gabapentin, tramadol�
Bowel: Colace and Senna, PRN bisacodyl.�
Bladder: time voiding, bladeder scan
DVT Prophylaxis: Mechanical,
Pulmonary: Incentive spirometry�
Safety: Continue to reinforce assistance with all transfers.�
Code Status:� Full code
Dispo�(date/plan/equipment needs): Home with family care.� Social history reviewed.�
Functional and Medical Goals:�Modified Independent with ADL�s, ambulation, transfers�
Discharge Destination:� Patient will be discharged Home with Home Care
Summary of recommendations: Patient decided to go home with home care for PT/OT.
Gait Dysfunction: OP neurology for cognitive testing and possible GREGORY scan for PD
ESRD:TTS [facility]. HD
Paroxysmal atrial fibrillation:Amiodarone, asa, coreg, off anticoagulation by patient's choice
Thank you for allowing me to care for your patient. Please contact me with any questions or concerns. The

Documented by User: Gerry Morales MD 05/09/24 10:29
Consultation - Medical
-
Referring Provider: Dimitri Washington
Chief Complaint:� Difficulty walking
�
History of Present Illness:�74 year-old male with PMH of (Coronary Artery Disease s/p Cardiac Stents,Paroxysmal Atrial Fibrillation,ESRD on HD Saturday,Essential Hypertension,Hyperlipidemia,Diabetes Mellitus, Type II, Chronic
shuffling gait,COPD, ischemic cardiomyopathy EF 25 to 30%, right inguinal hernia) presented to the ED o with worsened chronic gait dysfunction, an episode of 'freezing up' after dialysis and worsening confusion as well as recent urinary
incontinence. Has been seen in the past by Waldron Nsx in workup for NPH; he was felt not to have this. He is off anticoagulation due to his own concerns with bleeding
MRI brain showed: No acute infarct. Atrophy with chronic microvascular white matter ischemic change. Small chronic lacunar infarct in the right cerebellum and keaton.
He was not previously aware of these strokes. Still not interested in anticoagulation given bleeding from fistula site. Understands risks of potential for repeat strokes. This event may have been a recrudescence of old stroke symptoms with fluid
shifts after dialysis. He also has some mild R hand pill rolling tremor today concerning for possible PD which could cause 'freezing up' and gait dysfunction. He should f/u with neurology as an OP; would benefit from further cognitive testing and
potentially a GREGORY scan. Would also benefit from MRA head, echo to complete stroke workup but this can be done as an OP.
�
Past Medical History:�Coronary Artery Disease s/p Cardiac Stents,Paroxysmal Atrial Fibrillation,ESRD on HD Saturday,Essential Hypertension,Hyperlipidemia,Diabetes Mellitus, Type II, Chronic shuffling gait,COPD, ischemic
cardiomyopathy EF 25 to 30%, right inguinal hernia, prior CVA with partial left eye blindness, anemia
Procedure History:� CAD/cardiac stent 2022, LAD, RCA and circumflex stent 2022, CABG x 5 vessel GARZA-lad/lad, AO-SVG-OM/Cx, Ao-SVG-RCA, on pump, MAZE, KETURAH clip 05/02/23 , RUE AV Fistula
Family History:�non contributory
�
Social History:�
Functional Level Premorbidly:�Independent self-care at cane level. has been assisting with ADL for the past week
Functional Level Currently:�Grooming�supervision, toileting�min assist, bed mobility�supervision, ambulation, contact-guard to min assist for ambulation in [place], less unsteady than prior, no sway
�
Tobacco:�Denies�
Alcohol:�Occasional
Drug use:�Denies�
�
Lives with:�Family, in-law suite at son's home.
24-hour assistance available:�
Number of floors:1�
# steps to enter:�none
Driving:�
Occupation: Retired�
�
Allergies:�
Allergy/AdvReac Type Severity Reaction Status Date / Time
No Known Allergies Allergy Verified 05/05/24 16:23
Review of Systems:�
Constitutional: (x) abNormal _tired
Eye: (x) Normal _
Ear/Nose/Throat: (x) Normal _
Respiratory: (x) Normal _
Cardiovascular: (x) A-Fib
Gastrointestinal: (x) Normal _
Genitourinary: (x) normal
Musculoskeletal: (x) Normal _
Integumentary: (x) Normal _
Neurologic: (x)
Psychiatric: (x) Normal _
Endocrine: (x) Normal _
Hematologic/Lymphatic:
Allergic/Immunologic: (x) Normal _
�
Medications:�
Active Current Visit Medication List
Category Date Time Status
Acetaminophen [Tylenol] Med 05/06/24 00:58 Active
650 mg PO Q4HPRN PRN
Amiodarone [Pacerone] Med 05/06/24 22:00 Active
200 mg PO HS
Aspirin Low Dose EC [Aspir Low (Enteric Coated)] Med 05/06/24 22:00 Active
81 mg PO HS
Atorvastatin [Lipitor] Med 05/06/24 22:00 Active
80 mg PO HS
Calcium Acetate [Phoslo] Med 05/06/24 08:00 Active
667 mg PO MEALS
Carvedilol [Coreg] Med 05/06/24 08:00 Active
3.125 mg PO BID
Dextrose 50%-Water [Dextrose 50% Syringe] Med 05/06/24 00:58 Active
12.5 grams IV [id number] PRN
Flush (0.9% Sodium Chloride) [Flush (Nss)] Med 05/06/24 02:00 Active
See Dose Instructions IV PER PROTOCOL
Gabapentin [Neurontin] Med 05/06/24 22:00 Active
200 mg PO HS
Glucagon [GlucaGen] Med 05/06/24 00:58 Active
1 mg IM PRN PRN
Insulin Aspart Corrective Low [Novolog Flexpen-Low Med 05/06/24 07:30 Active
Resistance]
See Protocol SC AC
Insulin Aspart Pen [Novolog Flexpen] Med 05/06/24 07:30 Active
12 units SC AC
Insulin Glargine Lantus [Lantus] 14 units Med 05/06/24 22:00 Active
Subcutaneous Insulin Syringe [Syringe-Insulin] 0 unit
SC HS
Tramadol HCl [Ultram] Med 05/06/24 22:00 Active
100 mg PO HS
Vitals:�
Temp Pulse Resp BP Pulse Ox
97.6 F 67 16 107/58 99
05/08/24 15:45 05/08/24 15:45 05/08/24 15:45 05/08/24 15:45 05/08/24 15:45
Height 5 ft 8 in
Actual Weight 61.83 kg
Body Mass Index (BMI) 20.7
Physical Exam:�
General Appearance/Observation: Well-developed, well-nourished male in no apparent distress.�
Pain/Comfort Assessment: Denies�
Mood/Affect: Appropriate�
�
Integumentary/Operative Site:�
�� Pressure Ulcer Evaluation: absent over heels.�
�
Eyes: Conjunctiva/Lids: normal���� Pupils: pupils equal round
Ears/Nose/Throat: oral mucosa moist,� throat clear.������������ Lips/Teeth/Gums: normal�
Cardiovascular: Heart: regular, murmur�
Pulses: dorsalis pedis 2+ bilaterally�
Respiratory: Respiratory Effort/Chest Expansion: normal������� Auscultation: Clear to auscultation bilaterally�
Gastrointestinal: abdomen not tender, no distension, normal abdominal bowel sounds
Genitourinary: no lee
Extremities:�Edema: None�Cyanosis: None�Trophic�changes: None
�
Neurology Exam:
Orientation: Alert, Oriented to self, Time, Place�
Memory: Intact for recent medical concerns
Comprehension: Intact
Two step command: Intact
Cranial Nerves:
�� CNII:�Pupillary light reflex: Intact����
�� CN III, IV, : Extraocular muscles: Intact�
�� CN V:�Facial Sensation�at�Forehead: Intact,�Maxilla: Intact,�Mandible: Intact
�� CN VII:�Facial movement: Symmetric
�� CN VIII:�Hearing: Normal
�� CN IX/X:�Speech & swallow: Normal,�Position of Uvula: Midline
�� CN XI:�Shoulder shrug: weakness on left
��
Sensory:
�� Light touch: Intact in bilateral upper and lower extremities
��
Reflexes:
�� Biceps: 0 bilaterally
�� Brachioradialis: 0 bilaterally
�� Triceps: 0 bilaterally
�� Patellar: 0 bilaterally
�� Achilles: 0 bilaterally
�� Babinski: Down going bilaterally
�� Clonus: None
�� Dong: Negative bilaterally�
Cerebellar: Dysmetria/Ataxia: None
Musculoskeletal: Motor: (Manual muscle scale 0-5)�
Muscle SA EF WE EE FF FA HF KE DF EHL PF
Right� 5 5 5 5 5 5 5 4 4
Left 5 5 5 5 5 4+ 4 4 4
�
Tone: Normal in all extremities�
Range of Motion: Passively within normal limits in all extremities�
�
Lab Results
Labs
WBC 6.2 10^3/uL (4.8-10.8) 05/07/24 07:57
RBC 4.95 10^6/uL (4.70-6.10) 05/07/24 07:57
Hgb 14.2 g/dL (13.0-18.0) 05/07/24 07:57
Hct 43.9 % (39.0-52.0) 05/07/24 07:57
MCV 88.7 fL (80.0-94.0) 05/07/24 07:57
MCH 28.7 pg (27.0-31.0) 05/07/24 07:57
MCHC 32.3 g/dL (33.0-37.0) L 05/07/24 07:57
RDW 18.7 % (11.5-14.5) H 05/07/24 07:57
Plt Count 106 10^3/uL (130-400) L 05/07/24 07:57
MPV 11.1 fL (7.4-10.4) H 05/07/24 07:57
Abs Immat Gran (auto) 0.0 10^3/uL (0-0.05) 05/07/24 07:57
Absolute Neuts (auto) 4.2 10^3/uL (1.4-6.5) 05/07/24 07:57
Absolute Lymphs (auto) 1.0 10^3/uL (1.2-3.4) L 05/07/24 07:57
Absolute Monos (auto) 0.7 10^3/uL (0.1-0.6) H 05/07/24 07:57
Absolute Eos (auto) 0.2 10^3/uL (0-0.7) 05/07/24 07:57
Absolute Basos (auto) 0.1 10^3/uL (0-0.2) 05/07/24 07:57
Immature Gran % 0.3 % (0-0.5) 05/07/24 07:57
Neutrophils % 68.6 % (42.2-75.2) 05/07/24 07:57
Lymphocytes % 16.6 % (20.5-51.1) L 05/07/24 07:57
Monocytes % 10.8 % (1.7-9.3) H 05/07/24 07:57
Eosinophils % 2.9 % (0-6) 05/07/24 07:57
Basophils % 0.8 % (0-2) 05/07/24 07:57
Nucleated RBC % 0.3 % (-) 05/07/24 07:57
Sodium 133 mmol/L (135-145) L 05/07/24 07:57
Potassium 5.0 mmol/L (3.5-5.1) 05/07/24 07:57
Chloride 91 mmol/L (98-107) L 05/07/24 07:57
Carbon Dioxide 26 mmol/L (22-30) 05/07/24 07:57
BUN 73 mg/dl (9-20) H 05/07/24 07:57
Creatinine 3.9 mg/dL (0.7-1.3) H 05/07/24 07:57
Estimated Creat Clear 15 ml/min 05/07/24 07:57
eGFR 15.52 05/07/24 07:57
Glucose 287 mg/dl (70-99) H 05/07/24 07:57
Hemoglobin A1c 8.9 % (4.0-5.6) H 05/06/24 05:28
Calcium 9.2 mg/dl (8.4-10.2) 05/07/24 07:57
Total Bilirubin 1.1 mg/dl (0.2-1.3) 05/06/24 05:28
AST 28 U/L (17-59) 05/06/24 05:28
ALT 30 U/L (0-50) 05/06/24 05:28
Alkaline Phosphatase 95 U/L (38-126) 05/06/24 05:28
Total Protein 6.2 g/dl (6.3-8.2) L 05/06/24 05:28
Albumin 3.4 g/dl (3.5-5.0) L 05/06/24 05:28
Triglycerides 108 mg/dl (10-149) 05/06/24 05:28
Total Cholesterol 115 mg/dl (50-199) 05/06/24 05:28
LDL Cholesterol, Calc 64 mg/dl 05/06/24 05:28
VLDL Cholesterol, Calc 21 mg/dl (0-30) 05/06/24 05:28
HDL Cholesterol 30 mg/dl 05/06/24 05:28
Vitamin B12 977 pg/ml (239-931) H 05/06/24 05:28
TSH (Reflex) 3.11 uIU/ml (0.47-4.68) 05/06/24 05:28
Urine Color Yellow 05/05/24 21:17
Urine Clarity Clear (Clear) 05/05/24 21:17
Urine pH 6.5 (5.0-9.0) 05/05/24 21:17
Ur Specific [place] 1.015 (<1.030) 05/05/24 21:17
Urine Ketones Negative (Negative) 05/05/24 21:17
Ur Occult Blood Reflex Trace (Negative) A 05/05/24 21:17
Urine Nitrite (Reflex) Negative (Negative) 05/05/24 21:17
Urine Bilirubin Negative (Negative) 05/05/24 21:17
Urine Urobilinogen Negative (Neg - 1+) 05/05/24 21:17
Leukocyte Esterase Rfl Negative (Negative) 05/05/24 21:17
Urine RBC 3-6 /HPF (0-2) A 05/05/24 21:17
Urine WBC (Reflex) 0-2 /HPF (0-5) 05/05/24 21:17
Ur Squamous Epith Cells 0-2 /LPF (Few) 05/05/24 21:17
Urine Bacteria (Reflex) Few (Negative) A 05/05/24 21:17
Urine Mucus Few 05/05/24 21:17
Urine Glucose 2+ (Negative) A 05/05/24 21:17
Urine Albumin (Reflex) 2+ (Neg - Trace) A 05/05/24 21:17
POC Glucose 175 mg/dl (70-99) H 05/08/24 16:52
�
Diagnostic Results:�as per HPI�
�
Assessment: 74 year-old male with PMH of (Coronary Artery Disease s/p Cardiac Stents,Paroxysmal Atrial Fibrillation,ESRD on HD Saturday,Essential Hypertension,Hyperlipidemia,Diabetes Mellitus, Type II, Chronic shuffling gait,COPD,
ischemic cardiomyopathy EF 25 to 30%, right inguinal hernia) presented to the ED o with worsened chronic gait dysfunction, an episode of 'freezing up' after dialysis and worsening confusion.
Plan�
PT/OT to increase independence with ADLs, improve balance, coordination, endurance, strength, mobility, community reintegration, decreased burden of care on others and family education.�
Gait Dysfunction: OP neurology for cognitive testing and possible GREGORY scan for PD
ESRD:TTS [facility]. HD
Paroxysmal atrial fibrillation:Amiodarone, aspirin, coreg
Psych: Psychology consult.� Monitor mood, adjust as needed.�
Pain: acetaminophen as needed, gabapentin, tramadol�
Bowel: Colace and Senna, PRN bisacodyl.�
Bladder: Voiding without difficulty
DVT Prophylaxis: Mechanical
Pulmonary: Incentive spirometry�
Safety: Continue to reinforce assistance with all transfers.�
Code Status:� Full code
Dispo�(date/plan/equipment needs): Home with family care.� Social history reviewed.�
Functional and Medical Goals:�Modified Independent with ADL�s, ambulation, transfers�
Discharge Destination:� Patient will be discharged Home with Home Care
Summary of recommendations: Patient decided to go home with home care for PT/OT.
Gait Dysfunction: OP neurology for cognitive testing and possible GREGORY scan for PD
ESRD:TTS [facility]. HD
Paroxysmal atrial fibrillation:Amiodarone, aspirin, coreg, off anticoagulation by patient's choice
Thank you for allowing me to care for your patient. Please contact me with any questions or concerns.
Attending Statement: Late entry
I saw and examined the patient 05/08/24. Reviewed care plan with patient, therapy, nursing, and physician dermatology physician assistant. I agree with the above subjective and physical exam, and plan as documented by DEEPTI Gonzales with adjustments made as necessary.
[2024-05-08 07:23] LABS: Glucose - Point of Care 82 mg/dl (70-99)
[2024-05-08] MEDS: NOVOLOG FLEXPEN-LOW RESISTANCE SC (07:33)
[2024-05-08] MEDS: PHOSLO 667 MG PO ×3 (07:33→16:58)
[2024-05-08] MEDS: NOVOLOG FLEXPEN 12 UNITS SC ×3 (07:35→16:56)
[2024-05-08] MEDS: COREG 3.125 MG PO ×2 (07:35→20:50)
--- NOTE | 2024-05-08 08:51 | W.PN.HOSP.TC ---
Today's Communication/Plan
-
Discharge disposition planning.
Assessment / Plan
Assessment / Plan
Physical exam:
General: Well Developed, Well Nourished and No Apparent Distress
HEENT: Normocephalic, Atraumatic and Moist Mucous Membranes
Respiratory: Clear to Auscultation; Negative Wheezes, Rales or Rhonchi
Cardiac: Regular Rhythm and S1/S2
GI: Soft, Nontender and Nondistended
Musculoskeletal: No Clubbing, No Cyanosis and No Edema
Neuro: Alert and oriented, no gross neurological deficits
Psych: Calm
A/P:
Acute toxic metabolic encephalopathy-->asterixis-tremors/?Right hand weakness/transient speech difficulties-word finding difficulty/transient mental status changes/urinary incontinence:
Ruled out acute stroke but it could have been recrudescence of old stroke symptoms with fluid shift after dialysis by neurology input
MRI of the brain no acute infarct but it does show some chronic lacunar infarct in the right cerebellum and keaton.
Neurology consult appreciated
Continue aspirin
PT OT eval
Needs to be cautious with tramadol and gabapentin at nighttime.
Medically ready for discharge.
patient registration manager for discharge disposition
Paroxysmal atrial fibrillation:
On antiarrhythmics, amiodarone 200 mg daily
On Eliquis as outpatient but patient is not taking it due to risk of bleeding
On aspirin
End-stage renal disease on hemodialysis:
Dialysis per nephrology--> planning only 0.5 kg of ultrafiltration per renal since not significantly volume overloaded
Continue calcium acetate for hyperphosphatemia
There had been issues with RUE fistula in the recent past but currently working well without any problems.
CAD:
On aspirin and statins and beta-blockers.
s/p PCI to LAD, RCA, and circumflex 2014
s/p PCI 11/[address] [facility], details unknown (?OM1 and LM-LAD PCI)
s/p CABG x5 - GARZA-lad/lad, AO-SVG-OM/Cx, Ao-SVG-RCA, on pump, MAZE, KETURAH clip 05/02/23
Diabetes mellitus type 2:
Insulin sliding scale
On Lantus 14 units nightly
Hypertension:
On carvedilol 3.125 mg twice a day
Monitor blood pressure adjust medications accordingly
Chronic HFrEF:
Volume will be managed by dialysis
Continue beta-blockers
Diabetic neuropathy:
Continue gabapentin
DVT prophylaxis:
SCDs
CODE STATUS:
Full code
Anticipated Discharge: Today
Subjective/Interval History
-
Date of Service: May 08, 2024
No new complaints. Afebrile
Objective Data
-
Vital Signs:
Vital Signs
Temp Pulse Resp BP Pulse Ox
98.5 F 95 16 132/84 96
05/08/24 07:58 05/08/24 07:58 05/08/24 07:58 05/08/24 07:58 05/08/24 07:58
I&O
05/07/24 05/08/24 05/09/24
06:59 06:59 06:59
Intake Total 90 / 90 720 / 720
Output Total 0 / 0
Balance 90 / 90 720 / 720
[2024-05-08 11:56] LABS: Glucose - Point of Care 174 mg/dl (70-99)
[2024-05-08] MEDS: NOVOLOG FLEXPEN-LOW RESISTANCE 1 UNITS SC ×2 (11:56→16:57)
--- NOTE | 2024-05-08 13:53 | CM ---
Addendum entered by Anna Andrews 05/08/24 13:59:
Daughter, Yasmeen, requested Palliative Care referral; Attending notified via tiger text to order
Original Note:
Per Attending, patient will be discharged to home tomorrow, 05/09/24, after hemodialysis
Explained that Home Health for PT recommended; patient/family agreeable; no agency preference
Referral for home health sent to [facility] via [facility]
Plan: Discharge to home with home health services from [facility] tomorrow
--- NOTE | 2024-05-08 16:39 | W.PN.NEPH.PH ---
Today's Communication / Plan
-
HD tomorrow
Assessment/Plan
-
Impression:
ESRD TTS [facility]
Gait disturbance right lower extremity weakness /unstable gait/reported dysarthria
Hypertension
Hyperphosphatemia
Paroxysmal atrial fibrillation
Insulin requiring diabetes
Ischemic cardiomyopathy
Plan:
Dialysis tomorrow
Blood pressure stable on Coreg and dry weight
Maintain calcium acetate with meals for hyperphosphatemia
Appropriate dietary and fluid restrictions ordered for ESRD
Neurological workup neg
Right forearm fistula monitor function on HD
-
-
Date of Service: May 08, 2024
CC / HPI / ROS
-
Chief Complaint:
ESRD
History of Present Illness:
BP stable
no fever
Review of Systems:
no cp or sob
improving weakness and appetite
Labs
-
Labs:
WBC 6.2 10^3/uL (4.8-10.8) 05/07/24 07:57
RBC 4.95 10^6/uL (4.70-6.10) 05/07/24 07:57
Hgb 14.2 g/dL (13.0-18.0) 05/07/24 07:57
Hct 43.9 % (39.0-52.0) 05/07/24 07:57
Plt Count 106 10^3/uL (130-400) L 05/07/24 07:57
Sodium 133 mmol/L (135-145) L 05/07/24 07:57
Potassium 5.0 mmol/L (3.5-5.1) 05/07/24 07:57
Chloride 91 mmol/L (98-107) L 05/07/24 07:57
Carbon Dioxide 26 mmol/L (22-30) 05/07/24 07:57
BUN 73 mg/dl (9-20) H 05/07/24 07:57
Creatinine 3.9 mg/dL (0.7-1.3) H 05/07/24 07:57
eGFR 15.52 05/07/24 07:57
Glucose 287 mg/dl (70-99) H 05/07/24 07:57
Calcium 9.2 mg/dl (8.4-10.2) 05/07/24 07:57
Albumin 3.4 g/dl (3.5-5.0) L 05/06/24 05:28
Physical Exam
-
Vital Signs:
Vital Signs
Temp Pulse Resp BP Pulse Ox
97.6 F 67 16 107/58 99
05/08/24 15:45 05/08/24 15:45 05/08/24 15:45 05/08/24 15:45 05/08/24 15:45
Cardiovascular:: Regular rate and rhythm
Respiratory:: Bilateral: CTA (decreased)
Lung Excursion:: Normal
Abdomen:: Nontender and Soft
Extremity Edema:: None: Bilateral: (trace)
Massey Catheter: No
[2024-05-08 16:54] LABS: Glucose - Point of Care 175 mg/dl (70-99)
[2024-05-08 21:16] LABS: Glucose - Point of Care 190 mg/dl (70-99)
[2024-05-08] MEDS: LIPITOR 80 MG PO (21:16)
[2024-05-08] MEDS: ASPIR LOW (ENTERIC COATED) 81 MG PO (21:16)
[2024-05-08] MEDS: LANTUS 0.14 UNITS SC (21:16)
[2024-05-08] MEDS: PACERONE 200 MG PO (21:17)
[2024-05-08] MEDS: NEURONTIN 200 MG PO (21:17)
[2024-05-08] MEDS: ULTRAM 100 MG PO (21:18)
[2024-05-09 03:00] VITALS: BP 105/62; BP 113/70; BP 99/66; PULSE 73; PULSE 77
[2024-05-09 05:53] VITALS: BMI 21.7
[2024-05-09 07:10] LABS: Hematocrit 37.4 % (39.0-52.0); Hemoglobin 11.8 g/dL (13.0-18.0); Mean Corp Hgb Conc. 31.6 g/dL (33.0-37.0); Mean Corpuscular Volume 88.6 fL (80.0-94.0); Red Blood Cell Count 4.22 10^6/uL (4.70-6.10); Red Cell Dist. Width 18.6 % (11.5-14.5); White Blood Cell Count 4.6 10^3/uL (4.8-10.8)
[2024-05-09 07:22] LABS: Blood Urea Nitrogen 68 mg/dl (9-20); Calcium 8.5 mg/dl (8.4-10.2); Carbon Dioxide 29 mmol/L (22-30); Chloride 93 mmol/L (98-107); Estimated Creatinine Clearance 15 ml/min; Glucose 84 mg/dl (70-99); Sodium 134 mmol/L (135-145); eGFR 15.52
[2024-05-09 07:28] LABS: Glucose - Point of Care 76 mg/dl (70-99)
[2024-05-09 07:40] VITALS: BP 119/83
[2024-05-09 07:54] LABS: Mean Platelet Volume 10.6 fL (7.4-10.4); Platelet Count 80 10^3/uL (130-400)
[2024-05-09] MEDS: NOVOLOG FLEXPEN-LOW RESISTANCE SC ×2 (08:34→12:26)
[2024-05-09] MEDS: NOVOLOG FLEXPEN 12 UNITS SC (08:35)
[2024-05-09] MEDS: PHOSLO 667 MG PO ×3 (08:36→18:13)
[2024-05-09] MEDS: HEPARIN 500 UNITS IV ×2 (08:49→10:30)
--- NOTE | 2024-05-09 08:54 | W.PN.HOSP.TC ---
Today's Communication/Plan
-
Stop tramadol. Decrease insulin doses. PT OT eval
Assessment / Plan
Assessment / Plan
Physical exam:
General: Well Developed, Well Nourished and No Apparent Distress
HEENT: Normocephalic, Atraumatic and Moist Mucous Membranes
Respiratory: Clear to Auscultation; Negative Wheezes, Rales or Rhonchi
Cardiac: Regular Rhythm and S1/S2
GI: Soft, Nontender and Nondistended
Musculoskeletal: No Clubbing, No Cyanosis and No Edema
Neuro: Alert alternating with lethargy and oriented when alert, no gross neurological deficits but generalized weakness present.
Psych: Calm
A/P:
Acute toxic metabolic encephalopathy-->asterixis-tremors/?Right hand weakness/transient speech difficulties-word finding difficulty/transient mental status changes/urinary incontinence:
Ruled out acute stroke but it could have been recrudescence of old stroke symptoms with fluid shift after dialysis by neurology input
MRI of the brain no acute infarct but it does show some chronic lacunar infarct in the right cerebellum and keaton.
Neurology consult appreciated
Continue aspirin
PT OT eval
Needs to be cautious with tramadol and gabapentin at nighttime--> will stop tramadol today on 05/09
Medically ready for discharge.
continuity manager for discharge disposition
Paroxysmal atrial fibrillation:
On antiarrhythmics, amiodarone 200 mg daily
On Eliquis as outpatient but patient is not taking it due to risk of bleeding
On aspirin
End-stage renal disease on hemodialysis:
Dialysis per nephrology--> planning only 0.5 kg of ultrafiltration per renal since not significantly volume overloaded
Continue calcium acetate for hyperphosphatemia
There had been issues with RUE fistula in the recent past but currently working well without any problems.
CAD:
On aspirin and statins and beta-blockers.
s/p PCI to LAD, RCA, and circumflex 2014
s/p PCI 11/2022 at [facility], details unknown (?OM1 and LM-LAD PCI)
s/p CABG x5 - GARZA-lad/lad, AO-SVG-OM/Cx, Ao-SVG-RCA, on pump, MAZE, KETURAH clip 05/02/23
Diabetes mellitus type 2:
Insulin sliding scale
On Lantus 14 units nightly--> decrease to 10 units tonight
On NovoLog 12 units before meals-->given episodes of hypoglycemia hold lunch insulin and decrease NovoLog to 6 units
Continue to monitor blood sugars closely
Hypertension:
On carvedilol 3.125 mg twice a day
Monitor blood pressure adjust medications accordingly
Chronic HFrEF:
Volume will be managed by dialysis
Continue beta-blockers
Diabetic neuropathy:
Continue gabapentin
DVT prophylaxis:
SCDs
CODE STATUS:
Full code
Anticipated Discharge: Within 24 hours
Subjective/Interval History
-
Date of Service: May 09, 2024
Family reports difficulty waking him up when he takes tramadol. Blood sugar in the low side. Generalized weakness.
Objective Data
-
Labs:
Laboratory Results
05/09/24
06:41
WBC 4.6 L
Hgb 11.8 L
Hct 37.4 L
Plt Count 80 L D
Sodium 134 L
Potassium 5.0
Chloride 93 L
Carbon Dioxide 29
BUN 68 H
Creatinine 3.9 H
Glucose 84
Calcium 8.5
Vital Signs:
Vital Signs
Temp Pulse Resp BP Pulse Ox
98 F 77 16 119/83 98
05/09/24 07:40 05/09/24 07:40 05/09/24 07:40 05/09/24 07:40 05/09/24 07:40
I&O
05/08/24 05/09/24 05/10/24
06:59 06:59 06:59
Intake Total 720 / 720 1440 / 1440
Balance 720 / 720 1440 / 1440
--- NOTE | 2024-05-09 09:20 | W.PN.NEPH.HD ---
Assessment
-
pt seen during HD
vitals stable
US as tolerates
AVF functions fine
for d/c post HD , return to [facility] TTS schedule
Progress Note - Hemodialysis
-
Date of Service: May 09, 2024
Duration: 30 minutes and 3 hours
Potassium Bath: 2
Calcium Bath: 2.5
Opti-Dialyzer: 160
Ultrafiltration: Other (1.5-2kg)
Blood Flow: 400
Dialysate Flow: 600
Heparin: yesx2
EPO: no
[2024-05-09] MEDS: COREG PO (09:21)
[2024-05-09 11:44] VITALS: BP 128/83
[2024-05-09 12:02] LABS: Glucose - Point of Care 65 mg/dl (70-99)
--- NOTE | 2024-05-09 12:30 | PTCARENOTE ---
Low BS before breakfast and lunch. Dr Contreras notified, ordered to hold novolog.
[2024-05-09] MEDS: NOVOLOG FLEXPEN SC (12:48)
[2024-05-09 12:55] LABS: Glucose - Point of Care 85 mg/dl (70-99)
[2024-05-09 15:31] VITALS: BP 123/65
--- NOTE | 2024-05-09 17:24 | CM ---
Spoke with pt and SO Radhika in room .
He had HD.
Pt said he was ready for dc.
Radhika will drive him home.
As per [facility] accepted him.
PLAN Home with [facility]
--- NOTE | 2024-05-09 18:03 | W.DCSUMMARY ---
Discharge Summary
Discharge Data
Date of Admission: 05/05/24
Date of Discharge: 05/09/24
-
Pending Results: No
Hospital Course
Patient is 74 years old male with history of CAD, paroxysmal A-fib not on anticoagulation due to his choice and fistula site bleeding in the past, hypertension, hyperlipidemia, end-stage renal disease on hemodialysis, diabetes mellitus, COPD,
chronic gait dysfunction, presented to the hospital with mental status changes, worsening gait dysfunction, right hand and foot weakness transiently, and word finding difficulty transiently as well. Neurology was consulted. Neurology recommended
continue with aspirin and statins. Brain MRI shows no evidence of acute stroke but did show small chronic lacunar infarct in the right cerebellum and keaton. Neurology discussed risk and benefits about restarting anticoagulation but patient was not
interested on that. Neurology did not think this was NPH related either. There was possibility of Parkinson's related but he will require further studies and reevaluation as outpatient by neurology. Neurology felt this was most likely
recrudescence of old stroke symptoms with fluid shift after dialysis. In any event, patient did well rest of the hospital stay. He participated in physical therapy and Occupational Therapy. At some point there was a thought of going to acute
rehab and physiatry evaluated the patient but later on patient was doing very well and it was felt okay to go home with home health services. Patient did have some relative hypoglycemia so insulin doses were held and decreased initially but since
blood sugars are coming up again we decided to go back to his home regimen and reevaluate as outpatient with PCP. We did discontinued tramadol and this will help with his metabolic encephalopathy. Patient also was seen by nephrology and was
dialyzed appropriately during this hospital stay. No other events were noticed. He will be discharged in relatively stable condition today.
Discharge duration: 35 minutes
Discharge Plan
-
Patient Disposition: Home with Home Care
Discharge Diagnosis/Procedures: Toxic metabolic encephalopathy. End-stage renal disease on hemodialysis. Chronic systolic congestive heart failure.
Diet: Low Cholesterol, Low Sodium and 2 Gram Sodium
Activity: As tolerated
Blood Work: Please PCP to order CBC, BMP within 1 week
Specialty Instructions: Weigh Daily- Call MD for wt gain/loss 3 lbs overnight/5 lbs in 1 week
Referrals:
Man Lloyd MD [Active] - in two to four weeks
Olman Dougherty DO [Family Provider] - in less than 1 week
Jeannie Jones MD [Active] - in two to four weeks
Prescriptions:
Continued
atorvastatin 80 mg Tablet
80 mg PO HS
calcium acetate 667 mg Tablet
667 mg PO MEALS
aspirin 81 mg tablet,delayed release (DR/EC)
81 mg PO HS
carvedilol [Coreg] 3.125 mg Tablet
3.125 mg PO BID
gabapentin 100 mg Capsule
200 mg PO HS
amiodarone [Pacerone] 200 mg tablet
200 mg PO HS
acetaminophen [Tylenol] 325 mg Tablet
625 mg PO Q4HPRN PRN (Reason: mild pain)
nitroglycerin 0.4 mg Tablet, Sublingual
0.4 mg SUBLINGUAL [id number] PRN (Reason: chest pain)
insulin aspart U-100 [Novolog FlexPen U-100 Insulin] 100 unit/mL (3 mL) Insulin Pen
12 unit SC AC Qty: 15 0RF
insulin glargine [Lantus Solostar U-100 Insulin] 100 unit/mL (3 mL) Insulin Pen
14 unit SC HS Qty: 0 0RF
Discontinued
tramadol 50 mg Tablet
100 mg PO HS
Discharge Orders:
Discharge Patient (As Directed); Ordered 05/09/24
Ordered By: Dimitri Contreras
Discharge Date and Time
Discharge Date/Time: 05/09/24 19:26
Print Language: CROATIAN
[2024-05-09 18:30] LABS: Glucose - Point of Care 308 mg/dl (70-99)
--- NOTE | 2024-05-09 18:30 | PTCARENOTE ---
BS 308. Novolog given. Dr Contreras notified and verified pt is okay for discharge.
[2024-05-09] MEDS: NOVOLOG FLEXPEN 6 UNITS SC (18:56)
[2024-05-09] MEDS: NOVOLOG FLEXPEN-LOW RESISTANCE 4 UNITS SC (18:56)
[2024-05-09 19:15] VITALS: BP 122/70
== END 2024-05-09 19:26 | disposition home health service (06) ==
LOC: 3 WEST ACU 23:58
PROVIDERS: Clinical Nurse Specialist Family Health; Physician Assistant; ADMITTING PHYSICIAN Hospitalist; ATTENDING PHYSICIAN Hospitalist; CONSULT PHYSICIAN Physical Medicine & Rehabilitation; EMERGENCY PHYSICIAN Student in an Organized Health Care Education/Training Program; FAMILY PHYSICIAN Family Medicine; OTHER PHYSICIAN Psychiatry & Neurology Neurology; OTHER PHYSICIAN Specialist
DX: G92.8 Other toxic encephalopathy (principal); N18.6 End stage renal disease; I50.22 Chronic systolic (congestive) heart failure; R53.1 Weakness; I13.2 Hypertensive heart and chronic kidney disease with heart failure and with stage 5 chronic kidney disease, or end stage renal disease; E11.22 Type 2 diabetes mellitus with diabetic chronic kidney disease; I25.10 Atherosclerotic heart disease of native coronary artery without angina pectoris; E78.5 Hyperlipidemia, unspecified; R41.0 Disorientation, unspecified; R32 Unspecified urinary incontinence; R47.1 Dysarthria and anarthria; I48.0 Paroxysmal atrial fibrillation; J44.9 Chronic obstructive pulmonary disease, unspecified; R26.2 Difficulty in walking, not elsewhere classified; E11.40 Type 2 diabetes mellitus with diabetic neuropathy, unspecified; I25.5 Ischemic cardiomyopathy; I67.82 Cerebral ischemia; G31.9 Degenerative disease of nervous system, unspecified; I44.7 Left bundle-branch block, unspecified; J90 Pleural effusion, not elsewhere classified; E11.649 Type 2 diabetes mellitus with hypoglycemia without coma; E83.39 Other disorders of phosphorus metabolism; Z99.2 Dependence on renal dialysis; Z79.4 Long term (current) use of insulin; Z95.1 Presence of aortocoronary bypass graft; Z95.5 Presence of coronary angioplasty implant and graft; Z79.82 Long term (current) use of aspirin; Z86.73 Personal history of transient ischemic attack (TIA), and cerebral infarction without residual deficits; Z79.01 Long term (current) use of anticoagulants
CPT/HCPCS: 70450; 70551; 80048; 80053; 80061; 81003; 81015; 82607; 82962; 83036; 84443; 85025; 85027; 87070; 93005; 97116; 97163; 97167; 97530; 97535; 99285; G0257; G0378; P9047

== ENCOUNTER 2024-05-13 21:32 | Inpatient (IN) | payer MEDICARE, BC, SELFPAY ==
[2024-05-13 18:01] VITALS: BP 112/67
[2024-05-13 18:24] LABS: % Basophils 1.2 % (0-2); % Eosinophils 2.4 % (0-6); % Immature Granulocytes 0.5 % (0-0.5); % Lymphocytes 16.6 % (20.5-51.1); % Monocytes 16.1 % (1.7-9.3); % Neutrophils 63.2 % (42.2-75.2); Absolute Basophils 0.1 10^3/uL (0-0.2); Absolute Eosinophils 0.1 10^3/uL (0-0.7); Absolute Lymphocytes 0.7 10^3/uL (1.2-3.4); Absolute Monocytes 0.7 10^3/uL (0.1-0.6); Absolute Neutrophils 2.7 10^3/uL (1.4-6.5); Hemoglobin 11.7 g/dL (13.0-18.0); Mean Corp Hgb Conc. 31.6 g/dL (33.0-37.0); Mean Corpuscular Hgb 28.9 pg (27.0-31.0); Mean Corpuscular Volume 91.4 fL (80.0-94.0); Mean Platelet Volume 11.5 fL (7.4-10.4); Nucleated Red Blood Cells % 0 % (-); Platelet Count 120 10^3/uL (130-400); Red Blood Cell Count 4.05 10^6/uL (4.70-6.10); Red Cell Dist. Width 18.3 % (11.5-14.5); White Blood Cell Count 4.2 10^3/uL (4.8-10.8)
[2024-05-13 18:35] LABS: Lactic Acid 1.7 mmol/L (0.7-2.0)
[2024-05-13 18:44] LABS: ALT (SGPT) 23 U/L (0-50); AST (SGOT) 28 U/L (17-59); Albumin 3.6 g/dl (3.5-5.0); Alkaline Phosphatase 86 U/L (38-126); Blood Urea Nitrogen 61 mg/dl (9-20); Calcium 8.4 mg/dl (8.4-10.2); Carbon Dioxide 30 mmol/L (22-30); Chloride 93 mmol/L (98-107); Glucose 321 mg/dl (70-99); Potassium 5.1 mmol/L (3.5-5.1); Sodium 139 mmol/L (135-145); Total Bilirubin 0.7 mg/dl (0.2-1.3); Total Protein 6.4 g/dl (6.3-8.2); eGFR 15.06
[2024-05-13 19:37] VITALS: BP 126/80
--- NOTE | 2024-05-13 19:46 | ED.GENMED ---
History of Present Illness
General
Chief Complaint: Breathing Problem
Source: patient, records and spouse
Time Seen by Provider: 05/13/24 19:30
History of Present Illness
History of Present Illness:
This patient is a 74-year-old male with a prior extensive medical history, recently hospitalized status post thoracentesis on the left side who states that since discharge his breathing has become increasingly 'labored' associated with orthopnea and
dyspnea on exertion. He had dialysis yesterday as scheduled, and was given recommendation for an outpatient chest x-ray. The results of that x-ray today followed and a recommendation by his hot dimpling machine operator to come the emergency department. Patient
denies fever, chills, nasal congestion, cough, nausea, vomiting, chest pain or pressure. He has slightly increased leg swelling compared to prior. In general, his describes him as increasingly overall weak. Patient denies other complaints.
Past History
Past History
ED Past Medical History: CAD, HTN, IDDM, Renal failure and Other (right inguinal hernia)
ED Past Surgical History: Cardiac (stent placement 2022)
Social History
Tobacco: Non-smoker
Alcohol: Occasional
Drug: None
Personal:
Living: with family
Phy Exam
Physical Exam
Physical Exam:
GENERAL: Alert , in no apparent distress
EYE: pupils equal and reactive
NECK: Supple, no significant adenopathy.
ENT: o/p clr, mmm.
CARDIAC: Regular rate and rhythm .
LUNGS: Clear breath sounds bilaterally, no acute respiratory distress, no wheezes/rales/rhonchi, slightly decreased breath sounds at left base
ABDOMEN: Soft, without focal tenderness, no r/g, no cvat
NEUROLOGICAL: Alert and oriented, grossly nonfocal
SKIN: Warm and dry, skin intact., Positive bruit noted at graft site right forearm area. Various areas of bruising noted
MUSCULOSKELETAL: Trace to 1+ bilateral lower extremity edema, well perfused.
PSYCH: Normal and appropriate interaction.
Scores
Heart Failure Risk
Heart Failure Risk Score: Not Applicable
Course
Orders/Labs/Results
Orders:
Orders
05/13/24 Breakfast
Cholesterol Lowering
At Your Request: Full Participation
Fluid Restriction: 1440 mL/day (48 oz)
Cholesterol Lowering: Sodium, 2 Gram
1800 freddie/15 CHO Diabetic
Potassium, 2 gram
05/13/24 18:13
Complete Blood Count/With Diff Urgent
Comprehensive Metabolic Panel Urgent
Lactic Acid Urgent
05/13/24 19:45
Electrocardiogram (*1) Urgent
Reason for Study: Shortness of Breath
EKG- Treatment ONCE
05/13/24 19:59
COVID-19 Antigen Urgent
Source: Nasal Swab
Troponin I Urgent
05/13/24 20:59
Admit/Transfer Patient As Directed
Co-Sign Provider:
Level of Care: Inpatient admission
Assign to:: Telemetry
Physician / Group: [email or web address]
Diagnosis: Symtomatic Lt pleural effusion, acute on chr volume overlaod , ESRD
Reason for Telemetry: Subacute Heart Failure
Date to Stop Telemetry: 05/15/24
Time to Stop Telemetry: 11:00
Reason for Hospitalization: Symtomatic Lt pleural effusion, acute on chr volume overlaod , ESRD
Expected length of stay greater than two midnights?: Yes
ELOS- Estimated Length of Stay in days: 3
I certify the patient meets the requirements for IP care: Yes
05/13/24 21:04
Code Status As Directed
Resuscitation Status: Full Code
05/13/24 22:20
Acetaminophen [Tylenol] 650 mg PO Q4HPRN PRN
Aspirin Low Dose EC [Aspir Low (Enteric Coated)] 81 mg PO HS
Atorvastatin [Lipitor] 80 mg PO HS
Bisacodyl [Dulcolax] 10 mg RECTAL [id number] PRN
Dextrose 50%-Water [Dextrose 50% Syringe] 12.5 grams IV [id number] PRN
Docusate W/Senna [Senokot-S] 1 tablet PO BIDPRN PRN
Gabapentin [Neurontin] 200 mg PO HS
Glucagon [GlucaGen] 1 mg IM PRN PRN
Polyethylene Glycol Powder [Miralax] 17 grams PO DAILYPRN PRN
05/13/24 22:20
Add On- LAB Routine
Tests Added?: Body Fluid Triglycerides
NEPHROLOGY CONSULT Routine
Consulting Provider: Jeannie Jones
Was physician already notified: Yes
Reason for consult: Symtomatic Lt pleural effusion, acute on chr volume overlaod , ESRD
Body Fluid Amylase Routine
Fluid Source: Pleural
Date Specimen was Collected: 05/15/24
Time Specimen was Collected: 15:30
Comment: left chest tube
Body Fluid Cell Count Routine
What is the Body Fluid: pleural fluid
Date Specimen was Collected: 05/15/24
Time Specimen was Collected: 15:30
Comment: left chest tube placed in IRAD
Body Fluid Glucose Routine
Fluid Source: Pleural
Date Specimen was Collected: 05/15/24
Time Specimen was Collected: 15:30
Comment: left chest tube placed in IRAD
Body Fluid LDH Routine
Fluid Source: Pleural
Date Specimen was Collected: 05/15/24
Time Specimen was Collected: 15:30
Comment: left chest tube placed in IRAD
Body Fluid Protein Routine
Fluid Source: Pleural
Date Specimen was Collected: 05/15/24
Time Specimen was Collected: 15:30
Body Fluid Triglycerides Routine
Fluid Source: Pleural
Date Specimen was Collected: 05/15/24
Time Specimen was Collected: 15:30
Body Fluid pH Routine
Fluid Source: Pleural
Date Specimen was Collected: 05/15/24
Time Specimen was Collected: 15:30
Comment: left chest tube placed in irad
Glucose Routine
Hematocrit Routine
LDH Routine
Comment: post procedure, add on to morning labs if already drawn
Total Protein Routine
Comment: post procedure, add on to morning labs if already drawn
Fluid Culture with Gram Stain Routine
VERENA Source: Pleural Fluid
Specimen Description:
Date Specimen was Collected: 05/15/24
Time Specimen was Collected: 15:30
Comment: left chest tube placed in IRAD
Activity As Directed
Activity Level: With Assistance
Bedside Glucose Monitoring As Directed
Frequency: AC&HS
Additional Instructions:: Change to q6h if pt on TPN, tube feeding or not eating
Intake/ Output As Directed
Frequency: Per unit guidelines
Pneumatic Compression Sleeves As Directed
Type: Knee high
Vital Signs As Directed
Frequency: Per unit guidelines
Weight As Directed
Frequency: Daily
DX Deep Vein Thrombosis Video Routine
05/14/24 07:08
Basic Metabolic Panel IN AM
Complete Blood Count/No Diff IN AM
05/14/24 07:30
Insulin Aspart Corrective Low [Novolog Flexpen-Low Resistance] See Protocol SC AC
05/14/24 08:00
Calcium Acetate [Phoslo] 667 mg PO MEALS
Carvedilol [Coreg] 3.125 mg PO BID
Gabapentin [Neurontin] 100 mg PO DAILY
05/15/24 11:00
DC Protocol for Telemetry ONCE
Abnormal Lab Results
05/13/24 05/13/24
18:13 19:59
WBC 4.2 L 10^3/uL
(4.8-10.8)
RBC 4.05 L 10^6/uL
(4.70-6.10)
Hgb 11.7 L g/dL
(13.0-18.0)
Hct 37.0 L %
(39.0-52.0)
MCHC 31.6 L g/dL
(33.0-37.0)
RDW 18.3 H %
(11.5-14.5)
Plt Count 120 L D 10^3/uL
(130-400)
MPV 11.5 H fL
(7.4-10.4)
Absolute Lymphs (auto) 0.7 L 10^3/uL
(1.2-3.4)
Absolute Monos (auto) 0.7 H 10^3/uL
(0.1-0.6)
Lymphocytes % 16.6 L %
(20.5-51.1)
Monocytes % 16.1 H %
(1.7-9.3)
Chloride 93 L mmol/L
(98-107)
BUN 61 H mg/dl
(9-20)
Creatinine 4.0 H mg/dL
(0.7-1.3)
Glucose 321 H mg/dl
(70-99)
Troponin I 0.150 H* ng/ml
05/13/24 18:13
05/13/24 18:13
Vital Signs
Initial and Last Documented VS:
Initial Vital Signs
Temp Pulse Resp BP Pulse Ox
98.0 F 87 20 112/67 98
05/13/24 18:01 05/13/24 18:01 05/13/24 18:01 05/13/24 18:01 05/13/24 18:01
Last Documented Vital Signs
Temp Pulse Resp BP Pulse Ox
98.3 F 84 14 119/69 99
05/16/24 23:48 05/16/24 23:48 05/16/24 23:48 05/16/24 23:48 05/16/24 23:48
*Critical Care Note
Total Time (30-74mins, 75-104mins- exclusive of procedures): Not Applicable
Update Note
Update Note:
Patient presents to the Emergency Department with ____dyspnea
Number and Complexity of Problems Addressed at the Encounter
� Chronic conditions affecting care:
� Acute Exacerbation and/or Progression of Chronic Illness:
� Differential Diagnosis includes: But not limited to pneumonia, infected effusion, cardiac related effusion, heart failure, cancer related effusion, etc. etc.
Amount and/or Complexity of Data to be Reviewed and Analyzed
� I performed an independent evaluation of and my interpretation is:
EKG: Read by me, normal sinus rhythm, left bundle branch block, no acute ischemia
CT:
Xrays: Reviewed from prior today
Laboratory Studies: Baseline anemia, baseline thrombocytopenia, mild neutropenia
Other:
� Review of other/old records reveals: Patient had a thoracentesis note on August 2019 for path significant for pleural fluid. Today's chest x-ray noted to have a moderate-sized multi loculated fluid collection with air-fluid
levels at the left base
� Clinical information was obtained by an independent historian: Partner/ who is at bedside
� Prescriptions/Medications Considered but not given:
� Further testing considered but not performed:
Risk of Complications and/or Morbidity or Mortality of Patient Management
� Social determinants of health affecting care:
� Discussion with other providers (PCP, Hospitalists, Consultants, etc):
� Escalation of care including admission/observation vs risk of discharge considered:Pt with recurrent pleural effusion and associated sob, fatigue, etc. Will admit overnight with expected thora tomorrow, stable at this time.
Doubt infectious, no fever/leukocytosis/cough etc. D/w hospitalist for admission. nOTE: TROP elevated, however chornically elevated, no cp, no acute ischemia on ecg.
ED Attending Note
-
Portions of this chart may have been created with voice recognition software.� Occasional wrong word or��sound alike� substitutions may have occurred due to the inherent limitations of voice recognition software.
Discharge Plan
Departure
Patient Disposition: Admit
Date of Disposition: 05/13/24
Time of Disposition: 20:23
Presentation/result/management discussed w/ accepting MD/DO: Hospitalist
Condition: Good
Discharge Problem:
Dyspnea, Pleural effusion
Interventions
Interventions:
*Risk Screen - Suicide Last Done: 05/13/24 19:52
*General Assessment Last Done: 05/13/24 18:01
*Neglect/Abuse Screening Last Done: 05/13/24 19:52
ED- Fall Risk Assessment Last Done: 05/14/24 03:08
*ED COVID-19 Vaccine History Last Done: 05/13/24 19:52
*Nursing Disposition Last Done: 05/14/24 04:26
ED- Cardiac Assessment Last Done: 05/13/24 19:52
ED- Pulmonary Assessment Last Done: 05/13/24 19:52
Discharge Date and Time
Discharge Date/Time: 05/14/24 04:26
[2024-05-13 19:51] VITALS: BMI 23.6
[2024-05-13 20:12] VITALS: BP 131/89
[2024-05-13 20:19] LABS: COVID-19 Antigen Negative (Negative)
--- NOTE | 2024-05-13 20:52 | HPS.HSE ---
Family Physician
-
Family Physician: Olman Dougherty
Chief Complaint
-
SoB Recurrent Lt sided pleural effusion;
History of Present Illness
HPI
74M HX ESRD on HD ( TTS ) Lt pleural effusion , HX Lt thoracentesis in early April, Chr HFrEF recent admission ( 05/05/24 - 05/09/24
- since DC progressively SoB and become labored, dyspnea with minor exertion and orthopneic
- Had HD yesterday , due to SoB , extractions technologist ordered CXR yesterday
- OP CXR today show recurrent Lt moderate pleural effusion
ROS
- denies fever, chills, nasal congestion, cough, nausea, vomiting, chest pain or pressure.
- slightly increased leg swelling compared to prior.
- increasingly overall weak.
Medical History
Past Medical History
Past Medical History: Reports Other
Additional Past Medical History:
Coronary Artery Disease s/p Cardiac Stents
Paroxysmal Atrial Fibrillation
ESRD on HD Saturday
Essential Hypertension
Hyperlipidemia
Diabetes Mellitus, Type II
Chronic shuffling gait
COPD
CAD/cardiac stent 2022, LAD, RCA and circumflex stent 2022, CABG x 5 vessel GARZA-lad/lad, AO-SVG-OM/Cx, Ao-SVG-RCA, on pump, MAZE, KETURAH clip 05/02/23
ischemic cardiomyopathy EF 25 to 30%
paroxysmal A-fib
LBBB right inguinal hernia
Past Surgical History: Reports Other
Additional Past Surgical History:
RUE AV Fistula
cardiac stent 2022, LAD, RCA and circumflex stent 2022, CABG x 5 vessel GARZA-lad/lad, AO-SVG-OM/Cx, Ao-SVG-RCA, on pump, MAZE, KETURAH clip
Social History
Tobacco: Non-smoker
Alcohol: Occasional
Personal:
Living: With Family
Employment: Retired
Family History
Family History: Not pertinent
Allergies / Home Medications
Allergies reflects when Allergies were last updated in [employer].
Home Medications with original date entered in [employer]
Allergy/Medication List:
Allergies
Allergy/AdvReac Type Severity Reaction Status Date / Time
No Known Allergies Allergy Verified 05/05/24 16:23
Home Medications
atorvastatin 80 mg tablet 80 mg PO HS High Cholesterol 03/05/23
calcium acetate 667 mg tablet 667 mg PO MEALS Kidney Disease 03/05/23
aspirin 81 mg tablet,delayed release 81 mg PO HS Blood Clot Prevention/Tx 05/02/23
insulin aspart U-100 100 unit/mL (3 mL) subcutaneous pen (Novolog FlexPen U-100 Insulin aspart) 12 unit (0.12 mL) SC AC #15 mL 05/07/23
amiodarone 200 mg tablet (Pacerone) 200 mg PO HS 07/17/23
carvedilol 3.125 mg tablet (Coreg) 3.125 mg PO BID 07/17/23
gabapentin 100 mg capsule 200 mg PO HS 07/17/23
insulin glargine 100 unit/mL (3 mL) subcutaneous pen (Lantus Solostar U-100 Insulin) 14 unit SC HS Diabetes 04/20/24
tramadol 50 mg tablet 100 mg PO HS 04/20/24
acetaminophen 325 mg tablet (Tylenol) 625 mg PO Q4HPRN PRN mild pain 05/05/24
nitroglycerin 0.4 mg sublingual tablet 0.4 mg sublingual [id number] PRN chest pain 05/05/24
Review of Systems
-
History Source: Patient and Family ( to)
A 12 point ROS was completed and negative except as noted: Yes
Constitutional: Denies Fever, Fatigue or Chills
EENT: Reports Other (Reported dysarthria); Denies Sore Throat or Runny Nose
Respiratory: Reports Trouble Breathing
Cardiac: Denies Chest Pain, Diaphoresis, Palpitations or Syncope
Abdomen/GI: Denies Abdominal Pain, Nausea, Vomiting, Diarrhea, Constipated, Bloody Stools or Black Stools
: Reports Incontinence (Urine per ); Denies Dysuria, Frequency, Flank Pain, Difficulty Voiding or Urgency
Musculoskeletal: Denies Joint Pain or Edema
Skin: Reports Other (Right arm AV fistula); Denies Itching or Rash
Neurological: Reports Weakness (Reported weakness to leg, numbness to right hand x 1 year, gait instability x 3 weeks on baseline gait shuffling); Denies Dizzy or Headache
Endocrine: Reports No Symptoms
Hematologic/Lymphatic: Reports No Symptoms
Psych: Reports Calm
Physical Exam
Vital Signs
Vital Signs
Temp Pulse Resp BP Pulse Ox
98.0 F 91 27 131/89 97
05/13/24 18:01 05/13/24 20:30 05/13/24 20:30 05/13/24 20:12 05/13/24 20:30
Physical Exam
General: Well Nourished, No Apparent Distress, Comfortable and Conversant
HEENT: NormoCephalic, Moist mucous membranes and Atraumatic
Respiratory: Clear
Cardiac: S1/S2, Regular Rhythm, Murmur (loud SM at Lt USB ) and JVD; No Rub
GI: Soft, Non Tender, Non Distended and Normal Bowel Sounds; No Organomegaly
Rectal: Deferred by Provider
Musculoskeletal: No Clubbing, No Cyanosis and No Edema
Skin: No Rash
Neuro: Nonfocal/grossly intact
Psych: Calm
Laboratory Results
-
05/13/24 18:13
05/13/24 18:13
Laboratory Results
Lactic Acid 1.7 mmol/L (0.7-2.0) 05/13/24 18:13
Total Bilirubin 0.7 mg/dl (0.2-1.3) 05/13/24 18:13
AST 28 U/L (17-59) 05/13/24 18:13
ALT 23 U/L (0-50) 05/13/24 18:13
Alkaline Phosphatase 86 U/L (38-126) 05/13/24 18:13
Troponin I 0.150 ng/ml H* 05/13/24 19:59
Data Reviewed
-
Diagnostic Radiology: Report Reviewed by me
Medical Tests (Nuc Med, Echo, EKG etc): Report Reviewed by me
Lab Data: Labs Reviewed by me
Old Records: Reviewed
Impression/Plan
-
Vital Signs
Temp Pulse Resp BP Pulse Ox
98.0 F 91 27 131/89 97
05/13/24 18:01 05/13/24 20:30 05/13/24 20:30 05/13/24 20:12 05/13/24 20:30
05/09/24
05:53 05/13/24
19:51
Actual Weight 64.818 kg 70.5 kg
05/09/24 05/13/24 05/13/24
06:41 18:13 19:59
WBC 4.6 L 4.2 L
Hgb 11.8 L 11.7 L
Plt Count 80 L D 120 L D
Potassium 5.1
Chloride 93 L
BUN 61 H
Creatinine 4.0 H
SARS-CoV-2 Antigen Negative
04/22/24 Ultrasound-guided thoracentesis, Left.
- Successful ultrasound-guided thoracentesis, yielding 100 cc of serosanguineous pleural fluid. NEG cancer cells
CXR:
1). There is moderate-sized multilocular fluid collection with multiple air fluid levels at the left lung base. This may be sterile or infected collection and is increased in size when compared with the prior study
2). There is small right pleural effusion, new when compared with the prior study
3). There is mild cardiomegaly.
Last hospitalist admission:
Date of Admission: 05/05/24 - Date of Discharge: 05/09/24
DC DXs: TME, ESRD on HD Chronic systolic congestive heart failure.
ASSESSMENT & PLAN
Symptomatic recurrent Lt sided pleural effusion likely due to expanded volume ( Gained 5.7 kg over last 5 days)
Prior Pleural fluid NEG for malignant cells( 07/22/23)
- IR consult for Lt thoracentesis
Symptomatic expanded Volume with 5.7 kg over last 5 days
ESRD on HD ( , , Sat ) @ [facility] vis RUE fistula
only 0.5 kg of ultrafiltration ???
- cont. calcium acetate for hyperphosphatemia
- Renal consult for additional volume removal ?
Chronic HFrEF: gained 5.7 kg over last 5 day
- Volume will be managed by dialysis - to consider - additional volue removal ?
- Continue beta-blockers
Paroxysmal atrial fibrillation:
- cont amiodarone 200 mg daily
- not compliance with Eliquis as outpatient but patient is not taking it due to risk of bleeding
- on aspirin
CAD:
s/p PCI to LAD, RCA, and circumflex 2014
s/p PCI 11/2022 at [facility], details unknown (?OM1 and LM-LAD PCI)
s/p CABG x5 - GARAZ-lad/lad, AO-SVG-OM/Cx, Ao-SVG-RCA, on pump, MAZE, KETURAH clip 05/02/23
- on aspirin and statins and beta-blockers.
Essential Hypertension:
- on carvedilol 3.125 mg twice a day
DMT2
- c/w [employer] Lantus and NovoLog
- add ISS low
Diabetic neuropathy:
Continue gabapentin
DVT Px: SCD
Full code
Ip TLM
[2024-05-13 21:00] VITALS: BP 137/85
[2024-05-13 22:00] VITALS: BP 129/70
[2024-05-13 23:00] VITALS: BP 127/84
[2024-05-14] VITALS (10 sets, daily range): BP systolic 120–144; BP diastolic 79–92; BMI 23.3
[2024-05-14 00:58] LABS: Hematocrit 32.5 % (39.0-52.0)
[2024-05-14 01:30] LABS: Glucose 337 mg/dl (70-99); LDH 266 U/L (120-246); Total Protein 5.2 g/dl (6.3-8.2)
[2024-05-14] MEDS: LIPITOR PO (03:39)
[2024-05-14] MEDS: NEURONTIN PO (03:39)
[2024-05-14] MEDS: ASPIR LOW (ENTERIC COATED) PO (03:39)
--- NOTE | 2024-05-14 04:45 | TRANSFER ---
Pt admitted to unit. Pt stood and pivoted to bed from stretcher with nursing staff. Pt reports SOB and difficulty breathing. Pt reports 'shallow' breathing when taking deep breaths. Pt reports increased SOB 'laying flat.' Pt resting comfortably with
HOB raised and head on 2 pillows. Pt reports poor appetite the 'last few days.' AAXO3. Pt oriented to room with call robledo in reach. Plan of care ongoing.
[2024-05-14 04:47] LABS: Glucose - Point of Care 306 mg/dl (70-99)
[2024-05-14] MEDS: HEPARIN 500 UNITS IV ×2 (07:45→08:45)
[2024-05-14 07:59] LABS: Glucose - Point of Care 285 mg/dl (70-99)
[2024-05-14 08:25] LABS: Hematocrit 37.8 % (39.0-52.0); Mean Corp Hgb Conc. 31.7 g/dL (33.0-37.0); Mean Corpuscular Hgb 28.9 pg (27.0-31.0); Mean Corpuscular Volume 91.1 fL (80.0-94.0); Mean Platelet Volume 11.3 fL (7.4-10.4); Platelet Count 150 10^3/uL (130-400); Red Blood Cell Count 4.15 10^6/uL (4.70-6.10); Red Cell Dist. Width 18.5 % (11.5-14.5); White Blood Cell Count 5.8 10^3/uL (4.8-10.8)
[2024-05-14] MEDS: NOVOLOG FLEXPEN-LOW RESISTANCE 3 UNITS SC (08:43)
--- NOTE | 2024-05-14 08:44 | VNURNOTE ---
Chart reviewed. Patient is current with [facility] nursing. Will continue to follow hospital course and DC plans.
[2024-05-14 09:16] LABS: Blood Urea Nitrogen 69 mg/dl (9-20); Calcium 8.5 mg/dl (8.4-10.2); Carbon Dioxide 25 mmol/L (22-30); Chloride 93 mmol/L (98-107); Estimated Creatinine Clearance 14 ml/min; Glucose 260 mg/dl (70-99); Sodium 137 mmol/L (135-145); eGFR 13.43
--- NOTE | 2024-05-14 09:30 | W.CON.NEPH ---
Consultation
-
Date/Time Consultation Requested: 05/13/242229
Date/Time Consultation Performed: 05/14/24924
Requesting Provider: Shankar Hartman
Performing Provider: Jeannie Jones
Reason for Consultation: ESRD
Medical History
-
Chief Complaint: SOB, abnormal CXR
History of Present Illness:
The patient is a 74-year-old male with a past medical history of end-stage renal disease who dialyzes Saturday and Saturdays at our [facility] dialysis unit. Has a history of paroxysmal relation and is chronically maintained on
amiodarone. He is rate controlled with carvedilol. He has a history of diabetes and is maintained on insulin therapy. He is maintained on calcium acetate with meals for his history of hyperphosphatemia. He presented to the hospital for SOB. He
was at on 05/05 for AMS, weakness, gait dysfunction, transient right hand and leg weakness. He saw neuro and w/u noted old lacunar infarct in right cerebellum for which pt was recommended AC but pt not interested, subsequently d/c home on 05/09.
He was at HD unit on Saturday and noted significant SOB and edema. He has h/o pleural effusion post CABG(04/2023) in the past and last thoracentesis was in Aug, however most recently he had to undergo another thoracentesis on 04/22. A CXR was done on
05/13 for sob shows loculated left pleural effusion with air fluid level. He was asked to come to the ER to further evaluate. He offers no fever or coug. SOB on minimal exertion. He is not sure if was drinking more liquids at home.
Past Medical History
End-stage renal disease Saturday [facility] unit
Right upper extremity AV fistula
Hyperphosphatemia
Coronary Artery Disease s/p Cardiac Stents
Paroxysmal Atrial Fibrillation
Essential Hypertension
Hyperlipidemia
Diabetes Mellitus, Type II
Chronic shuffling gait
COPD
CAD/cardiac stent 2022, LAD, RCA and circumflex stent 2022, CABG x 5 vessel GARZA-lad/lad, AO-SVG-OM/Cx, Ao-SVG-RCA, on pump, MAZE, KETURAH clip 05/02/23
ischemic cardiomyopathy EF 25 to 30%
paroxysmal A-fib
LBBB
right inguinal hernia
Past Surgical History: Other (RUE AV Fistula cardiac stent 2022, LAD, RCA and circumflex stent 2022, CABG x 5 vessel GARZA-lad/lad, AO-SVG-OM/Cx, Ao-SVG-RCA, on pump, MAZE, KETURAH clip )
Social History
Tobacco: Non-Smoker
Alcohol: Occasional
Drug: None
Personal:
Living: With Family
Employment: Retired
Family History
no ckd
Family History: Not Pertinent
Allergies / Home Medications
Allergy/AdvReac Type Severity Reaction Status Date / Time
No Known Allergies Allergy Verified 05/13/24 18:01
�Medication �Instructions �Recorded �Confirmed �Type
atorvastatin 80 mg tablet 80 mg PO HS High Cholesterol 03/05/23 05/14/24 History
calcium acetate 667 mg tablet 667 mg PO MEALS Kidney Disease 03/05/23 05/14/24 History
aspirin 81 mg tablet,delayed 81 mg PO HS Blood Clot 05/02/23 05/14/24 History
release Prevention/Tx
carvedilol 3.125 mg tablet (Coreg) 3.125 mg PO BID Heart 07/17/23 05/14/24 History
Disease/Condition
gabapentin 100 mg capsule 200 mg PO HS Pain 07/17/23 05/14/24 History
acetaminophen 325 mg tablet 625 mg PO Q4HPRN PRN mild pain 05/05/24 05/13/24 History
(Tylenol)
nitroglycerin 0.4 mg sublingual 0.4 mg sublingual [id number] PRN 05/05/24 05/13/24 History
tablet chest pain
insulin glargine 100 unit/mL (3 14 unit (0.14 mL) SC HS Diabetes 05/09/24 05/14/24 Rx
mL) subcutaneous pen (Lantus #0 mL
Solostar U-100 Insulin)
apixaban 5 mg tablet (Eliquis) 5 mg PO .SEE BELOW 05/13/24 05/14/24 History
gabapentin 100 mg capsule 100 mg PO DAILY 05/13/24 05/14/24 History
insulin aspart U-100 100 unit/mL 0 sliding scale dose SC AC 05/13/24 05/14/24 History
(3 mL) subcutaneous pen (Novolog
FlexPen U-100 Insulin aspart)
Review of Systems
-
All complete 12 point ROS have been inquired and found negative other than stated in HPI
All other systems: Negative unless noted
Physical Exam
Vital Signs
Vital Signs
Temp Pulse Resp BP Pulse Ox
97.9 F 91 18 131/84 98
05/14/24 07:35 05/14/24 07:35 05/14/24 07:35 05/14/24 07:35 05/14/24 07:35
Lab Results
WBC 5.8 10^3/uL (4.8-10.8) 05/14/24 07:08
RBC 4.15 10^6/uL (4.70-6.10) L 05/14/24 07:08
Hgb 12.0 g/dL (13.0-18.0) L 05/14/24 07:08
Hct 37.8 % (39.0-52.0) L 05/14/24 07:08
Plt Count 150 10^3/uL (130-400) D 05/14/24 07:08
Sodium 137 mmol/L (135-145) 05/14/24 07:08
Potassium 5.0 mmol/L (3.5-5.1) 05/14/24 07:08
Chloride 93 mmol/L (98-107) L 05/14/24 07:08
Carbon Dioxide 25 mmol/L (22-30) 05/14/24 07:08
BUN 69 mg/dl (9-20) H 05/14/24 07:08
Creatinine 4.4 mg/dL (0.7-1.3) H* 05/14/24 07:08
eGFR 13.43 05/14/24 07:08
Glucose 260 mg/dl (70-99) H 05/14/24 07:08
Calcium 8.5 mg/dl (8.4-10.2) 05/14/24 07:08
Albumin 3.6 g/dl (3.5-5.0) 05/13/24 18:13
CXR:
IMPRESSION:
1). There is moderate-sized multilocular fluid collection with multiple air fluid levels at the left lung base. This may be sterile or infected collection and is increased in size when compared with the prior study
2). There is small right pleural effusion, new when compared with the prior study
3). There is mild cardiomegaly.
Physical Exam
General: Awake, Alert, Oriented, AOx3, No Distress and Nontoxic
HEENT: EOMI, Anicteric and Facial Symmetry
Respiratory: Normal Excursion, Nonlabored Respirations and Other (decreased BS)
Cardiac: S1/S2, Regular Rate/Rhythm and Murmur
Breast: Deferred by me
Abdomen: Soft, Nontender and Nondistended
Musculoskeletal: No Cyanosis and Edema (1+)
Skin: No Rash
Neuro: Nonfocal/Grossly Intact
Psych: Mood/afflect pleasant, Insight/judgement good and Appropriate
Vascular Access: AVF
Data Reviewed
-
Radiology: Report Reviewed by me and Discussed with Patient
Labs: Labs Reviewed by me and Discussed with Patient
Assessment/Plan
-
Impression:
Recurrent left pleural effusion
ESRD TTS [facility]
Hypertension
Hyperphosphatemia
Paroxysmal atrial fibrillation
Insulin requiring diabetes
Ischemic cardiomyopathy
DM 2 with hyperglycemia
Diabetic peripheral neuropathy
Hyperlipidemia -on atorvastatin.
History of stroke
Plan:
A/w sob and recurrent pleural effusion
Dialysis today with UF as much as possible
clearly vol overload, Pt not sure if relaxed FR at home
strict renal diet and FR 33 ounces/day
Bp stable
plan thoracentesis by IR
loculated effusion and air fluid level, consult pulm
likely need CT chest post tap
If transudate may need repeat echo
d/w pt
[2024-05-14] MEDS: FLEXBUMIN 25% FOR HEMODIALYSIS 12.5 GRAMS IV (10:25)
[2024-05-14] MEDS: MANNITOL 25% 12.5 GRAMS IV (10:26)
--- NOTE | 2024-05-14 10:48 | W.PN.HOSP.TC ---
Today's Communication/Plan
-
IR consult
Pulmonary consult
Resume Lantus
Assessment / Plan
Assessment / Plan
Gen-AAOx3, NAD
HEENT-NC, AT, anicteric, clear oral mm
Neck-supple
CV-reg, no M, +S1/S2
Lungs-clear B/L
Abd-soft, NT, ND
Ext-no edema
Musculoskeletal-no cyanosis, clubbing
Skin-warm and dry
Neuro-grossly non-focal
Psych-calm, cooperative
Recurrent left pleural effusion -await IR consult, thoracentesis today after dialysis. Etiology likely due to volume overload in the setting of ESRD and chronic heart failure. Previous pleural fluid analysis consistent with transudate.
Has had recurrent effusions since CABG which was done in April 2023. Last thoracentesis was earlier this month. Prior to that it was in August and July of this year.
Consult pulmonary.
Admission two-view chest x-ray shows moderate-sized multiloculated fluid collection with multiple air-fluid levels at the left lung base. Small right pleural effusion. Mild cardiomegaly. Oxygenation adequate on room air.
ESRD -on dialysis Saturday//Saturday. States he has been compliant with sodium and fluid restriction. However, his weight is above his dry weight, currently 67 kg. Dry weight is 61 kg.
Chronic heart failure reduced EF
Pancytopenia -unclear etiology. White blood cell count and platelet count have recovered. Would follow-up with PCP after discharge.
Essential hypertension -stable.
DM 2 with hyperglycemia -on Lantus 14 units at bedtime, NovoLog sliding scale at home. Glucose 285 this morning. Currently only on aspart corrective scale, will resume Lantus.
Diabetic peripheral neuropathy
Hyperlipidemia -on atorvastatin.
Paroxysmal atrial fibrillation -not on anticoagulation by patient choice. Continue aspirin, amiodarone.
History of stroke -recent brain MRI 05/06/2024 showed atrophy with chronic microvascular ischemic changes, small chronic lacunar infarct in the right cerebellum and keaton. Seen by neurology at the time and recommendation was for anticoagulation but
patient declined.
Full code
Dispo -patient requesting discharge today, however I prefer to watch overnight and discharge tomorrow if stable. Still waiting for thoracentesis.
Anticipated Discharge: Within 24 hours
Subjective/Interval History
-
Date of Service: May 14, 2024
Patient seen and examined. States that his shortness of breath is improved. Currently getting dialysis. No complaints.
Objective Data
-
Labs:
Laboratory Results
05/14/24 05/14/24
00:46 07:08
WBC 5.8
Hgb 12.0 L
Hct 32.5 L 37.8 L
Plt Count 150 D
Sodium 137
Potassium 5.0
Chloride 93 L
Carbon Dioxide 25
BUN 69 H
Creatinine 4.4 H*
Glucose 337 H 260 H
Calcium 8.5
Vital Signs:
Vital Signs
Temp Pulse Resp BP Pulse Ox
97.9 F 91 18 131/84 98
05/14/24 07:35 05/14/24 07:35 05/14/24 07:35 05/14/24 07:35 05/14/24 07:35
I&O
05/13/24 05/14/24 05/15/24
06:59 06:59 06:59
Intake Total 240 / 240
Output Total 200 / 200
Balance 40 / 40
Review of Systems
-
History Source: Patient
All other systems: Reviewed and negative
--- NOTE | 2024-05-14 11:13 | W.PN.NEPH.HD ---
Assessment
-
pt seen during HD
vitals stable
UF as much he can tolerate
AVG functions well
will reeval if need of extra UF tomorrow
Progress Note - Hemodialysis
-
Date of Service: May 14, 2024
Duration: 30 minutes and 3 hours
Potassium Bath: 2
Calcium Bath: 2.5
Opti-Dialyzer: 160
Ultrafiltration: Other (3.5kg)
Blood Flow: 400
Dialysate Flow: 600
Heparin: yesx2
EPO: no
--- NOTE | 2024-05-14 11:44 | CON.PUL ---
Consultation
Consultation Request
Date/Time Consultation Requested: 05/14/24
Date/Time Consultation Performed: 05/14/24
Performing Provider: Bertrand
Reason for Consultation: Effusion
Medical History
-
History of Present Illness:
Patient is a 74 year old M with history of ESRD on HD (TTS), recurrent left pleural effusion s/p numerous thoracentesis, chronic HFrEF and recent admission (05/05/24-05/09/24), presenting to ER for progressive SOB, orthopnea. CXR shows recurrent
left moderate pleural effusion, potentially complex. Prior taps demonstrating transudative cell count with negative culture/cytology. He denies any current SOB, chest pain, cough. He denies prior known history of lung disease, never smoker.
Denies any trouble swallowing, frequent PNAs, sick contacts, travel. He is currently stable on RA.
.
Past Medical History
Past Medical History: Other (see list below)
Social History
Tobacco: Non-smoker
Alcohol: None
Drug: None
Family History
Family History: Reviewed & Not Pertinent
Allergies / Home Medications
Allergies
Allergy/AdvReac Type Severity Reaction Status Date / Time
No Known Allergies Allergy Verified 05/13/24 18:01
Home Medications
�Medication �Instructions �Recorded �Confirmed �Last Taken �Type
atorvastatin 80 mg tablet 80 mg PO HS High Cholesterol 03/05/23 05/14/24 05/12/24 History
calcium acetate 667 mg tablet 667 mg PO MEALS Kidney Disease 03/05/23 05/14/24 05/13/24 History
aspirin 81 mg tablet,delayed 81 mg PO HS Blood Clot 05/02/23 05/14/24 05/12/24 History
release Prevention/Tx
carvedilol 3.125 mg tablet (Coreg) 3.125 mg PO BID Heart 07/17/23 05/14/24 05/12/24 History
Disease/Condition
gabapentin 100 mg capsule 200 mg PO HS Pain 07/17/23 05/14/24 05/11/24 History
acetaminophen 325 mg tablet 625 mg PO Q4HPRN PRN mild pain 05/05/24 05/13/24 Unknown History
(Tylenol)
nitroglycerin 0.4 mg sublingual 0.4 mg sublingual [id number] PRN 05/05/24 05/13/24 Unknown History
tablet chest pain
insulin glargine 100 unit/mL (3 14 unit (0.14 mL) SC HS Diabetes 05/09/24 05/14/24 05/12/24 Rx
mL) subcutaneous pen (Lantus #0 mL
Solostar U-100 Insulin)
apixaban 5 mg tablet (Eliquis) 5 mg PO .SEE BELOW 05/13/24 05/14/24 05/13/24 08:00 History
gabapentin 100 mg capsule 100 mg PO DAILY 05/13/24 05/14/24 05/11/24 History
insulin aspart U-100 100 unit/mL 0 sliding scale dose SC AC 05/13/24 05/14/24 05/13/24 History
(3 mL) subcutaneous pen (Novolog
FlexPen U-100 Insulin aspart)
Review of Systems
-
History Source: Patient
All other systems: Negative unless noted
Vitals / Labs / Diagnostic Testing
Vital Signs
Temp Pulse Resp BP Pulse Ox
97.9 F 91 18 131/84 98
05/14/24 07:35 05/14/24 07:35 05/14/24 07:35 05/14/24 07:35 05/14/24 07:35
Lab Data
05/14/24 07:08
05/14/24 07:08
Diagnostic Testing:
Physical Exam
-
HEENT: Normocephalic, Anicteric and Moist Mucous Membranes
Cardiovascular: S1/S2 and Regular Rhythm
Respiratory: Clear (decreased BS at L base) and Non-Labored Respirations
GI: Soft, Non Distended and Non Tender
Neurology: Awake, Alert, Oriented and No Motor Deficits
Skin: Warm, Dry and Good Color
General: Comfortable and Other (NAD)
Assessment
-
Patient is a 74 year old M with history of ESRD on HD (TTS), recurrent left pleural effusion s/p numerous thoracentesis, chronic HFrEF and recent admission (05/05/24-05/09/24), presenting to ER for progressive SOB, orthopnea. CXR shows recurrent
left moderate pleural effusion, potentially complex. Prior taps demonstrating transudative cell count with negative culture/cytology. We are consulted for eval.
Recurrent pleural effusion
s/p IR L thora 04/22/24- Successful ultrasound-guided thoracentesis, yielding 100 cc of serosanguineous pleural fluid
08/19/23- L thoracentesis, 1250 cc of clear reese pleural fluid.
07/22/23- L thora - 1250 cc of light reese pleural fluid
CAD with a history of stent-preoperative EF 20-25%
Status post CABG x5-GARZA-LAD/LAD, AO SVG-OM/circumflex, AO SVG-RCA, MAZE and left atrial clip- 05/02/2023 Dr Reyes
Status post recent CHF-reduced EF requiring BiPAP
Ischemic cardiomyopathy-EF 25%
Hypertensive emergency
Paroxysmal atrial fibrillation
Anemia-hemoglobin 9.3
Thrombocytopenia-platelet count 95
Chronic renal failure
Conditions present prior to admission:
Hypertension.
Hyperlipidemia.
Diabetes.
CAD.
Atrial fibrillation.
CHF-EF 25%.
CVA/TIA-2010.
End-stage renal disease on hemodialysis.
Anemia of chronic disease
Occupational exposure-history of working in [employer] for 17 years-asbestos exposure
Right wrist AV fistula.
Plan
No oxygen was needed on admission, currently saturating >90% on RA
No history of use
No prior history of lung disease is noted
He does have recurrent pleural effusion since Jul 2023
Thora results in past reviewed in detail:
07/22/23- pH 7.5, wbc 161, glu 221, tp <2.0, ldh 102, culture neg --transudative
04/22/24- wbc 273, ldh 134, culture and cyto neg
Suspect patient has recurrent transudative fluid, but may evolve to be complex/exudate
CXR/CT obtained indicating air fluid pockets/will obtain CT chest to evaluate
IR consult obtained for thora again
Other imaging reviewed
If confirmed, discussed with IR potential need for chest tube/lytics
ECHO results reviewed-- 25 to 30% with global HK
Chronic HF history noted
on ESRD, volume removal via HD
Will need outpatient pulmonary evaluation in our office for PFTs and 6MWT
Reviewed with patient
Can arrange repeat thoras as indicated as OP as well
We will follow
Diagnostic Data
CXR 05/13/24- IMPRESSION: 1). There is moderate-sized multilocular fluid collection with multiple air fluid levels at the left lung base. This may be sterile or infected collection and is increased in size when compared with the prior study 2).
There is small right pleural effusion, new when compared with the prior study 3). There is mild cardiomegaly.
04/22/24- Decrease in size of left pleural effusion compatible with history of thoracentesis. No evidence for significant pneumothorax.
Chest x-ray 05/02/2023-moderate left lung atelectasis at the base
CT chest 04/27/2023-severe coronary artery calcifications, trace right pleural effusion, chronic pancreatitis
ECHO 04/23/2023: EF 25 to 30%, global hypokinesis with regional variation, MAC, moderate MR, trace TR, PAP 35 mmHg
Cardiac catheterization 04/25/2023-multivessel CAD
Reports and relevant images were personally reviewed.
Total time spent on this consultation __77__ includes review of history, physical exam, medications, laboratory data, personal review of imaging, extensive review of outpatient records, discussion with care team and respiratory therapy.
[2024-05-14] MEDS: COREG PO ×3 (11:59→20:28)
[2024-05-14 12:00] LABS: Glucose - Point of Care 111 mg/dl (70-99)
[2024-05-14] MEDS: NOVOLOG FLEXPEN-LOW RESISTANCE SC (12:09)
[2024-05-14] MEDS: NOVOLOG FLEXPEN 6 UNITS SC ×2 (12:10→17:06)
[2024-05-14] MEDS: PHOSLO 667 MG PO ×3 (12:11→17:06)
[2024-05-14] MEDS: NEURONTIN 100 MG PO (12:11)
--- NOTE | 2024-05-14 12:14 | CM ---
CM reviewed chart, patient seen bedside, initial assessment completed. Patient resides with his significant other in an in law suit, lower level, one small step to enter. Patient reports having a walker, cane, and wheelchair at home. Patient reports
VN in the past, denies SNF. Patient confirms HD schedule: Sarah Hooks, Sat at [facility] on [address] in [place]. Patient confirms PCP Olman Dougherty, pharmacy [facility], confirms prescription coverage. Patient denies needs from CM at this
time, will continue to follow for all discharge planning needs.
Plan; home with family when stable.
[2024-05-14 16:35] LABS: Glucose - Point of Care 192 mg/dl (70-99)
[2024-05-14] MEDS: NOVOLOG FLEXPEN-LOW RESISTANCE 1 UNITS SC (17:07)
[2024-05-14] MEDS: LIPITOR 80 MG PO (21:25)
[2024-05-14] MEDS: NEURONTIN 200 MG PO (21:25)
[2024-05-14] MEDS: ASPIR LOW (ENTERIC COATED) 81 MG PO (21:25)
[2024-05-14] MEDS: LANTUS 0.14 UNITS SC (22:49)
[2024-05-14 22:50] LABS: Glucose - Point of Care 269 mg/dl (70-99)
[2024-05-15] VITALS (9 sets, daily range): BP systolic 85–138; BP diastolic 59–92; BMI 22.7
[2024-05-15 06:49] LABS: Glucose - Point of Care 139 mg/dl (70-99)
[2024-05-15] MEDS: NOVOLOG FLEXPEN-LOW RESISTANCE SC ×2 (07:02→18:18)
[2024-05-15] MEDS: NOVOLOG FLEXPEN 6 UNITS SC ×2 (07:48→12:11)
[2024-05-15] MEDS: COREG 3.125 MG PO ×2 (07:49→20:34)
[2024-05-15] MEDS: PHOSLO 667 MG PO (07:49)
[2024-05-15] MEDS: NEURONTIN 100 MG PO (07:50)
--- NOTE | 2024-05-15 08:43 | W.PN.PUL3 ---
Today's Communication / Plan
-
Complex fluid noted on CT, not amenable to simple diagnostic thora
Will likely need chest tube insertion +/- lytics, IR planning, attempt CT guided placement possibly today
Continued HD per renal team
Encouraged ambulation/PT in the interim
Assessment
-
Patient is a 74 year old M with history of ESRD on HD (TTS), recurrent left pleural effusion s/p numerous thoracentesis, chronic HFrEF and recent admission (05/05/24-05/09/24), presenting to ER for progressive SOB, orthopnea. CXR shows recurrent
left moderate pleural effusion, potentially complex. Prior taps demonstrating transudative cell count with negative culture/cytology. We are consulted for eval.
Recurrent L pleural effusion-complex
s/p IR L thora 04/22/24- Successful ultrasound-guided thoracentesis, yielding 100 cc of serosanguineous pleural fluid
08/19/23- L thoracentesis, 1250 cc of clear reese pleural fluid.
07/22/23- L thora - 1250 cc of light reese pleural fluid
CAD with a history of stent-preoperative EF 20-25%
Status post CABG x5-GARZA-LAD/LAD, AO SVG-OM/circumflex, AO SVG-RCA, MAZE and left atrial clip- 05/02/2023 Dr Reyes
Status post recent CHF-reduced EF requiring BiPAP
Ischemic cardiomyopathy-EF 25%
Hypertensive emergency
Paroxysmal atrial fibrillation
Anemia-hemoglobin 9.3
Thrombocytopenia-platelet count 95
Chronic renal failure
Conditions present prior to admission:
Hypertension.
Hyperlipidemia.
Diabetes.
CAD.
Atrial fibrillation.
CHF-EF 25%.
CVA/TIA-2010.
End-stage renal disease on hemodialysis.
Anemia of chronic disease
Occupational exposure-history of working in [employer] for 17 years-asbestos exposure
Right wrist AV fistula.
Plan
No oxygen was needed on admission, currently saturating >90% on RA
No history of use
No prior history of lung disease is noted
He does have recurrent pleural effusion since Jul 2023
Thora results in past reviewed in detail:
07/22/23- pH 7.5, wbc 161, glu 221, tp <2.0, ldh 102, culture neg --transudative
04/22/24- wbc 273, ldh 134, culture and cyto neg
Suspect patient has recurrent transudative fluid, but may evolve to be complex/exudate
CXR/CT obtained indicating air fluid pockets/will obtain CT chest to evaluate--confirmed complex fluid structure
IR consult obtained for thora but could not be attempted given loculated appearance, can try for chest tube today per IR
Other imaging reviewed
Discussed with IR potential need for chest tube/lytics once placed
ECHO results reviewed-- 25 to 30% with global HK
Chronic HF history noted
on ESRD, volume removal via HD
Renal following
Will need outpatient pulmonary evaluation in our office for PFTs and 6MWT
Reviewed with patient
Diagnostic Data
CXR 05/13/24- IMPRESSION: 1). There is moderate-sized multilocular fluid collection with multiple air fluid levels at the left lung base. This may be sterile or infected collection and is increased in size when compared with the prior study 2).
There is small right pleural effusion, new when compared with the prior study 3). There is mild cardiomegaly.
04/22/24- Decrease in size of left pleural effusion compatible with history of thoracentesis. No evidence for significant pneumothorax.
Chest x-ray 05/02/2023-moderate left lung atelectasis at the base
CT chest 04/27/2023-severe coronary artery calcifications, trace right pleural effusion, chronic pancreatitis
ECHO 04/23/2023: EF 25 to 30%, global hypokinesis with regional variation, MAC, moderate MR, trace TR, PAP 35 mmHg
Cardiac catheterization 04/25/2023-multivessel CAD
Reports and relevant images were personally reviewed.
Total time spent on this encounter __51__ includes review of history, physical exam, medications, laboratory data, personal review of imaging, extensive review of outpatient records, discussion with care team and respiratory therapy.
Subjective Data
-
Date of Service:
Date of Service: May 15, 2024
Chief Complaint: Pulmonary Follow Up
Subjective:
Currently stable on RA, no events ON
Reports some SOB/orthopnea, dry cough occasionally
at bedside
Objective Data
Data Reviewed
Vital Signs / I&O / Oxygen:
Vital Signs
Temp Pulse Resp BP Pulse Ox
98.0 F 97 18 135/81 98
05/15/24 07:35 05/15/24 07:35 05/15/24 07:35 05/15/24 07:35 05/15/24 07:35
Intake and Output
05/14/24 05/15/24 05/16/24
06:59 06:59 06:59
Intake Total 240 / 240 660 / 660
Output Total 200 / 200 0 / 0
Balance 40 / 40 660 / 660
SaO2 98
Physical Exam
General: Comfortable and Other (NAD)
HEENT: Normocephalic, Anicteric and Moist Mucous Membranes
Cardiovascular: S1-S2 and Regular Rhythm
Respiratory: Clear (decreased at L base) and Non-Labored Respirations
GI: Soft, Non Distended and Non Tender
Neurology: Awake, Alert, Oriented and No Motor Deficits
Skin: Warm, Dry and Good Color
Labs/Micro/Reports
Lab Data
05/14/24 07:08
05/14/24 07:08
Microbiology
05/14/24 05:40 Nose MRSA Screen - Final
No Methicillin Resistant Staphylococcus aureus isolated.
--- NOTE | 2024-05-15 09:30 | W.PN.HOSP.TC ---
Today's Communication/Plan
-
IR consult
Assessment / Plan
Assessment / Plan
Gen-AAOx3, NAD
HEENT-NC, AT, anicteric, clear oral mm
Neck-supple
CV-reg, no M, +S1/S2
Lungs-clear B/L
Abd-soft, NT, ND
Ext-no edema
Musculoskeletal-no cyanosis, clubbing
Skin-warm and dry
Neuro-grossly non-focal
Psych-calm, cooperative
Recurrent left pleural effusion -await IR consult, thoracentesis today.
CT chest shows small complex left pleural effusion with multiple small air-fluid levels suspicious for empyema. Suspect may need chest tube. Awaiting thoracentesis. Discussed with pulmonary.
ESRD -on dialysis Saturday//Saturday. States he has been compliant with sodium and fluid restriction. However, his weight is above his dry weight, currently 65 kg. Dry weight is 61 kg.
Chronic heart failure reduced EF
Pancytopenia -unclear etiology. White blood cell count and platelet count have recovered. Would follow-up with PCP after discharge.
Essential hypertension -stable.
DM 2 with hyperglycemia -on Lantus 14 units at bedtime, NovoLog sliding scale at home. Glucose 139 this morning, continue Lantus 14 units at bedtime, 6 units aspart with meals, and sliding scale.
Diabetic peripheral neuropathy
Hyperlipidemia -on atorvastatin.
Paroxysmal atrial fibrillation -not on anticoagulation by patient choice. Continue aspirin, amiodarone.
History of stroke -recent brain MRI 05/06/2024 showed atrophy with chronic microvascular ischemic changes, small chronic lacunar infarct in the right cerebellum and keaton. Seen by neurology at the time and recommendation was for anticoagulation but
patient declined.
Full code
Dispo -not medically stable for discharge yet.
Anticipated Discharge: > 48 hours
Subjective/Interval History
-
Date of Service: May 15, 2024
Patient seen and examined. Complaining of orthopnea.
Objective Data
-
Vital Signs:
Vital Signs
Temp Pulse Resp BP Pulse Ox
98.0 F 97 18 135/81 98
05/15/24 07:35 05/15/24 07:35 05/15/24 07:35 05/15/24 07:35 05/15/24 07:35
I&O
05/14/24 05/15/24 05/16/24
06:59 06:59 06:59
Intake Total 240 / 240 660 / 660
Output Total 200 / 200 0 / 0
Balance 40 / 40 660 / 660
Review of Systems
-
History Source: Patient
All other systems: Reviewed and negative
--- NOTE | 2024-05-15 10:19 | CM ---
CM reviewed chart, met with patient and significant other bedside. No concerns to CM at this time. Per chart, awaiting IR consult. CM will continue to follow for all discharge planning needs.
Plan; home with significant other when stable.
--- NOTE | 2024-05-15 10:21 | W.PN.NEPH.PH ---
Today's Communication / Plan
-
HD tomorrow
Assessment/Plan
-
Impression:
Recurrent left pleural effusion
ESRD TTS [facility]
Hypertension
Hyperphosphatemia
Paroxysmal atrial fibrillation
Insulin requiring diabetes
Ischemic cardiomyopathy
DM 2 with hyperglycemia
Diabetic peripheral neuropathy
Hyperlipidemia -on atorvastatin.
History of stroke
Plan:
HD tomorrow
strict renal diet and FR 33 ounces/day
plan thoracentesis by IR
could UF today, but likely will not to allow thoracentesis
-
-
Date of Service: May 15, 2024
CC / HPI / ROS
-
Chief Complaint:
ESRD
History of Present Illness:
no SOB/on Room air
tolerated HD yesterday
BP stable
still with loculated effusion
Review of Systems:
no CP/SOB
Labs
-
Labs:
WBC 5.8 10^3/uL (4.8-10.8) 05/14/24 07:08
RBC 4.15 10^6/uL (4.70-6.10) L 05/14/24 07:08
Hgb 12.0 g/dL (13.0-18.0) L 05/14/24 07:08
Hct 37.8 % (39.0-52.0) L 05/14/24 07:08
Plt Count 150 10^3/uL (130-400) D 05/14/24 07:08
Sodium 137 mmol/L (135-145) 05/14/24 07:08
Potassium 5.0 mmol/L (3.5-5.1) 05/14/24 07:08
Chloride 93 mmol/L (98-107) L 05/14/24 07:08
Carbon Dioxide 25 mmol/L (22-30) 05/14/24 07:08
BUN 69 mg/dl (9-20) H 05/14/24 07:08
Creatinine 4.4 mg/dL (0.7-1.3) H* 05/14/24 07:08
eGFR 13.43 05/14/24 07:08
Glucose 260 mg/dl (70-99) H 05/14/24 07:08
Calcium 8.5 mg/dl (8.4-10.2) 05/14/24 07:08
Albumin 3.6 g/dl (3.5-5.0) 05/13/24 18:13
Physical Exam
-
Vital Signs:
Vital Signs
Temp Pulse Resp BP Pulse Ox
98.0 F 97 18 135/81 98
05/15/24 07:35 05/15/24 07:35 05/15/24 07:35 05/15/24 07:35 05/15/24 07:35
Cardiovascular:: Regular rate and rhythm
Respiratory:: Bilateral: Coarse
Lung Excursion:: Normal
Abdomen:: Nontender and Soft
Bowel Sounds:: Normal
Extremity Edema:: +1: Bilateral:
[2024-05-15 11:29] LABS: Glucose - Point of Care 152 mg/dl (70-99)
[2024-05-15] MEDS: NOVOLOG FLEXPEN-LOW RESISTANCE 300 UNITS SC (12:12)
[2024-05-15] MEDS: PHOSLO PO ×2 (14:27→18:18)
[2024-05-15 16:33] LABS: Body Fluid pH 7.43
[2024-05-15 16:45] LABS: Body Fluid Mononuclear 78.6 %; Body Fluid Polymorphonuclear 21.4 %; Body Fluid WBC 473 /CUMM
[2024-05-15 16:45] LABS: Glucose - Point of Care 91 mg/dl (70-99)
[2024-05-15 16:51] LABS: Body Fluid Amylase < 30 U/L; Body Fluid Glucose 110 mg/dl; Body Fluid LDH 274 U/L; Body Fluid Protein < 2.0 g/dl; Body Fluid Triglycerides < 30 mg/dl
[2024-05-15 17:01] LABS: Body Fluid Second Tech DW
--- NOTE | 2024-05-15 18:00 | W.PN.UPDATE ---
Update Note
Progress Note Update
- Post CT guided left chest tube placement earlier today
- Small but heavily loculated left pleural effusion. 8.5F chest tube placed with aspiration of bloody fluid, not overtly purulent. Possibly related to prior bloody/traumatic thoracentesis?
- Specimens sent. If ultimately turns out to be empyema, can consider pleural lysis.
[2024-05-15] MEDS: NOVOLOG FLEXPEN SC (18:17)
[2024-05-15] MEDS: LIPITOR 80 MG PO (21:58)
[2024-05-15] MEDS: NEURONTIN 200 MG PO (21:58)
[2024-05-15] MEDS: ASPIR LOW (ENTERIC COATED) 81 MG PO (21:58)
[2024-05-15] MEDS: LANTUS 0.14 UNITS SC (21:58)
[2024-05-15 21:59] LABS: Glucose - Point of Care 189 mg/dl (70-99)
[2024-05-16] VITALS (7 sets, daily range): BP systolic 106–131; BP diastolic 69–80; BMI 22.9
--- NOTE | 2024-05-16 05:53 | PTCARENOTE ---
Pt awake intermittently t/o the night. pt using urinal as needed. Left chest tube intact draining serous sanguinous drainage. Pt tolerating well, denies complaints of pain. Pt sitting on side of bed listening to music overnight. positioning self in
bed per comfort. Vital signs stable. Will monitor.
[2024-05-16 08:02] LABS: Glucose - Point of Care 153 mg/dl (70-99)
--- NOTE | 2024-05-16 08:19 | W.PN.HOSP.TC ---
Today's Communication/Plan
-
Continue current care
Assessment / Plan
Assessment / Plan
Gen-AAOx3, NAD
HEENT-NC, AT, anicteric, clear oral mm
Neck-supple
CV-reg, no M, +S1/S2
Lungs-clear B/L
Abd-soft, NT, ND
Ext-no edema
Musculoskeletal-no cyanosis, clubbing
Skin-warm and dry
Neuro-grossly non-focal
Psych-calm, cooperative
Recurrent left pleural effusion -chest tube placed under CT guidance 05/15. Fluid noted to be small but heavily loculated. Bloody fluid obtained, not purulent. pH 7.4. Culture pending but clinically doubt infection. This is the patient's first
chest tube.
ESRD -on dialysis Saturday//Saturday. States he has been compliant with sodium and fluid restriction. However, his weight is above his dry weight, currently 66 kg. Dry weight is 61 kg.
Chronic heart failure reduced EF -stable.
Pancytopenia -unclear etiology. White blood cell count and platelet count have recovered. Would follow-up with PCP after discharge.
Essential hypertension -stable.
DM 2 with hyperglycemia -on Lantus 14 units at bedtime, NovoLog sliding scale at home. Glucose 153 this morning, continue Lantus 14 units at bedtime, 6 units aspart with meals, and sliding scale.
Diabetic peripheral neuropathy
Hyperlipidemia -on atorvastatin.
Paroxysmal atrial fibrillation -not on anticoagulation by patient choice. Continue aspirin, amiodarone.
History of stroke -recent brain MRI 05/06/2024 showed atrophy with chronic microvascular ischemic changes, small chronic lacunar infarct in the right cerebellum and keaton. Seen by neurology at the time and recommendation was for anticoagulation but
patient declined.
Full code
Dispo -not medically stable for discharge yet.
Anticipated Discharge: > 48 hours
Subjective/Interval History
-
Date of Service: May 16, 2024
Patient seen and examined. Mild discomfort from chest tube. No shortness of breath.
Objective Data
-
Labs:
Laboratory Results
05/16/24
07:00
Hgb Pending
Hct Pending
Sodium Pending
Potassium Pending
Chloride Pending
Carbon Dioxide Pending
Vital Signs:
Vital Signs
Temp Pulse Resp BP Pulse Ox
98.1 F 84 16 106/75 98
05/16/24 03:00 05/16/24 03:00 05/16/24 03:00 05/16/24 03:00 05/16/24 03:00
I&O
05/15/24 05/16/24 05/17/24
06:59 06:59 05:59
Intake Total 660 / 660 1210 / 1210
Output Total 0 / 0 300 / 300
Balance 660 / 660 910 / 910
Review of Systems
-
History Source: Patient
All other systems: Reviewed and negative
[2024-05-16] MEDS: NOVOLOG FLEXPEN-LOW RESISTANCE 1 UNITS SC (09:03)
[2024-05-16] MEDS: NOVOLOG FLEXPEN 6 UNITS SC ×3 (09:04→16:42)
[2024-05-16] MEDS: COREG 3.125 MG PO ×2 (09:05→21:24)
[2024-05-16] MEDS: PHOSLO 667 MG PO ×3 (09:05→21:24)
[2024-05-16] MEDS: NEURONTIN 100 MG PO (09:06)
[2024-05-16 11:53] LABS: Glucose - Point of Care 119 mg/dl (70-99)
[2024-05-16] MEDS: NOVOLOG FLEXPEN-LOW RESISTANCE SC ×2 (12:14→16:27)
--- NOTE | 2024-05-16 12:33 | W.PN.UPDATE ---
Update Note
Progress Note Update
- Small amount of output from L chest tube since placement yesterday - 50 mL. Initial findings not concerning for empyema.
- CXR ordered for tomorrow
- Suspect this could be related to traumatic/bloody thoracentesis?
--- NOTE | 2024-05-16 14:26 | W.PN.PUL3 ---
Today's Communication / Plan
-
Chest x-ray in a.m.
Continue chest tube to suction
Eventual follow-up CT chest prior to chest tube removal
Suspect may be combination of ex vacuo process, trapped lung physiology in the setting of recurrent thoracentesis
As of now, no evidence of obvious infection
Follow cultures
Assessment
-
Patient is a 74 year old M with history of ESRD on HD (TTS), recurrent left pleural effusion s/p numerous thoracentesis, chronic HFrEF and recent admission (05/05/24-05/09/24), presenting to ER for progressive SOB, orthopnea. CXR shows recurrent
left moderate pleural effusion, potentially complex. Prior taps demonstrating transudative cell count with negative culture/cytology. We are consulted for eval.
Recurrent L pleural effusion-complex
s/p IR L thora 04/22/24- Successful ultrasound-guided thoracentesis, yielding 100 cc of serosanguineous pleural fluid
08/19/23- L thoracentesis, 1250 cc of clear reese pleural fluid.
07/22/23- L thora - 1250 cc of light reese pleural fluid
CAD with a history of stent-preoperative EF 20-25%
Status post CABG x5-GARZA-LAD/LAD, AO SVG-OM/circumflex, AO SVG-RCA, MAZE and left atrial clip- 05/02/2023 Dr Reyes
Status post recent CHF-reduced EF requiring BiPAP
Ischemic cardiomyopathy-EF 25%
Hypertensive emergency
Paroxysmal atrial fibrillation
Anemia-hemoglobin 9.3
Thrombocytopenia-platelet count 95
Chronic renal failure
Conditions present prior to admission:
Hypertension.
Hyperlipidemia.
Diabetes.
CAD.
Atrial fibrillation.
CHF-EF 25%.
CVA/TIA-2010.
End-stage renal disease on hemodialysis.
Anemia of chronic disease
Occupational exposure-history of working in [employer] for 17 years-asbestos exposure
Right wrist AV fistula.
Plan/recommendations
At this time, patient appears to be comfortable
Pleural fluid relatively benign, LDH with discordant exudate effusion
pH normal. Not consistent with empyema
Pleural fluid cultures pending
Denies pulmonary symptoms
No prior history of lung disease is noted
He does have recurrent pleural effusion since Jul 2023
Thora results in past reviewed in detail:
07/22/23- pH 7.5, wbc 161, glu 221, tp <2.0, ldh 102, culture neg --transudative
04/22/24- wbc 273, ldh 134, culture and cyto neg
Suspect patient has recurrent transudative fluid, but may evolve to be complex/exudate
CXR/CT obtained indicating air fluid pockets/will obtain CT chest to evaluate--confirmed complex fluid structure
IR consult obtained for thora but could not be attempted given loculated appearance, can try for chest tube today per IR
Other imaging reviewed
Discussed with IR potential need for chest tube/lytics once placed
We will hold off at this time given possibility of combination of ex vacuo process with trapped lung physiology and mild bleeding from thoracentesis in the past
Currently he is off antibiotics
Follow cultures
ECHO results reviewed-- 25 to 30% with global HK
Chronic HF history noted
on ESRD, volume removal via HD
Renal following
Will need outpatient pulmonary evaluation in our office for PFTs and 6MWT
Reviewed with patient
Diagnostic Data
CXR 05/13/24- IMPRESSION: 1). There is moderate-sized multilocular fluid collection with multiple air fluid levels at the left lung base. This may be sterile or infected collection and is increased in size when compared with the prior study 2).
There is small right pleural effusion, new when compared with the prior study 3). There is mild cardiomegaly.
04/22/24- Decrease in size of left pleural effusion compatible with history of thoracentesis. No evidence for significant pneumothorax.
Chest x-ray 05/02/2023-moderate left lung atelectasis at the base
CT chest 04/27/2023-severe coronary artery calcifications, trace right pleural effusion, chronic pancreatitis
ECHO 04/23/2023: EF 25 to 30%, global hypokinesis with regional variation, MAC, moderate MR, trace TR, PAP 35 mmHg
Cardiac catheterization 04/25/2023-multivessel CAD
Reports and relevant images were personally reviewed.
Total time spent on this encounter __51__ includes review of history, physical exam, medications, laboratory data, personal review of imaging, extensive review of outpatient records, discussion with care team and respiratory therapy.
Subjective Data
-
Date of Service:
Date of Service: May 16, 2024
Chief Complaint: Pulmonary Follow Up
Subjective:
Patient is feeling well. He is fatigued. Denies significant chest tube discomfort. Denies shortness of breath, cough, hemoptysis, abdominal pain. Family at bedside
Objective Data
Data Reviewed
Vital Signs / I&O / Oxygen:
Vital Signs
Temp Pulse Resp BP Pulse Ox
97.3 F 86 18 127/77 97
05/16/24 11:00 05/16/24 11:00 05/16/24 11:00 05/16/24 11:00 05/16/24 11:00
Intake and Output
05/15/24 05/16/24 05/17/24
06:59 06:59 05:59
Intake Total 660 / 660 1210 / 1210
Output Total 0 / 0 300 / 300
Balance 660 / 660 910 / 910
SaO2 97
Nasal Cannula flow liters per 2
minute
Physical Exam
General: Comfortable and Other (NAD)
HEENT: Normocephalic, Anicteric and Moist Mucous Membranes
Cardiovascular: S1-S2, Regular Rhythm, Murmur (n) and Rub (n)
Respiratory: Clear (decreased at L base), Crackles (n), Rhonchi (n), Non-Labored Respirations and Chest Tube (No airleak)
GI: Soft, Non Distended and Non Tender
Neurology: Awake, Alert and No Motor Deficits
Skin: Warm, Dry and Good Color
Labs/Micro/Reports
Microbiology
05/15/24 16:03 Pleural Fluid Body Fluid Culture - Preliminary
No Growth After 18-24 Hours
05/15/24 16:03 Pleural Fluid Gram Stain - Preliminary
05/14/24 05:40 Nose MRSA Screen - Final
No Methicillin Resistant Staphylococcus aureus isolated.
[2024-05-16 16:19] LABS: Glucose - Point of Care 118 mg/dl (70-99)
[2024-05-16] MEDS: HEPARIN 500 UNITS IV ×2 (16:30→17:30)
--- NOTE | 2024-05-16 16:34 | W.PN.NEPH.HD ---
Assessment
-
Seen on HD. no complaints. VSS, access ok. chest tube on left
Progress Note - Hemodialysis
-
Date of Service: May 16, 2024
Duration: 30 minutes and 3 hours
Potassium Bath: 2
Calcium Bath: 2.5
Opti-Dialyzer: 160
Ultrafiltration: Other (4kg)
Blood Flow: 400
Dialysate Flow: 600
Heparin: 500 x2
EPO: no
[2024-05-16 16:44] LABS: Hematocrit 34.1 % (39.0-52.0); Hemoglobin 11.3 g/dL (13.0-18.0)
[2024-05-16 17:06] LABS: Carbon Dioxide 21 mmol/L (22-30); Chloride 97 mmol/L (98-107); Potassium 4.4 mmol/L (3.5-5.1); Sodium 135 mmol/L (135-145)
[2024-05-16 21:02] LABS: Glucose - Point of Care 126 mg/dl (70-99)
[2024-05-16] MEDS: LANTUS 0.14 UNITS SC (21:24)
[2024-05-16] MEDS: NEURONTIN 200 MG PO (21:24)
[2024-05-16] MEDS: LIPITOR 80 MG PO (21:24)
[2024-05-16] MEDS: ASPIR LOW (ENTERIC COATED) 81 MG PO (21:24)
[2024-05-17 03:15] VITALS: BP 125/75
[2024-05-17 06:00] VITALS: BMI 23.0
[2024-05-17 07:45] LABS: Glucose - Point of Care 156 mg/dl (70-99)
[2024-05-17 07:47] VITALS: BP 100/67
[2024-05-17] MEDS: NOVOLOG FLEXPEN 6 UNITS SC ×3 (08:05→16:56)
[2024-05-17] MEDS: NOVOLOG FLEXPEN-LOW RESISTANCE 1 UNITS SC ×2 (08:05→16:55)
[2024-05-17] MEDS: COREG 3.125 MG PO ×2 (08:39→20:14)
[2024-05-17] MEDS: PHOSLO 667 MG PO ×3 (08:39→16:56)
[2024-05-17] MEDS: NEURONTIN 100 MG PO (08:40)
--- NOTE | 2024-05-17 09:53 | W.PN.HOSP.TC ---
Today's Communication/Plan
-
Continue current care
Assessment / Plan
Assessment / Plan
Gen-AAOx3, NAD
HEENT-NC, AT, anicteric, clear oral mm
Neck-supple
CV-reg, no M, +S1/S2
Lungs-clear B/L
Abd-soft, NT, ND
Ext-no edema
Musculoskeletal-no cyanosis, clubbing
Skin-warm and dry
Neuro-grossly non-focal
Psych-calm, cooperative
Recurrent left pleural effusion -chest tube placed under CT guidance 05/15. Fluid noted to be small but heavily loculated. Bloody fluid obtained, not purulent. pH 7.4. This is the patient's first chest tube. Fluid culture without growth. Gram
stain negative for organisms.
Chest x-ray completed this morning, no appreciable change based on my review. Await radiologist input.
ESRD -on dialysis Saturday//Saturday. States he has been compliant with sodium and fluid restriction. However, his weight is above his dry weight, currently 66 kg. Dry weight is 61 kg.
Chronic heart failure reduced EF -stable.
Pancytopenia -unclear etiology. White blood cell count and platelet count have recovered. Would follow-up with PCP after discharge.
Essential hypertension -stable.
DM 2 with hyperglycemia -on Lantus 14 units at bedtime, NovoLog sliding scale at home. Glucose 156 this morning, continue Lantus 14 units at bedtime, 6 units aspart with meals, and sliding scale.
Diabetic peripheral neuropathy
Hyperlipidemia -on atorvastatin.
Paroxysmal atrial fibrillation -not on anticoagulation by patient choice. Continue aspirin, amiodarone.
History of stroke -recent brain MRI 05/06/2024 showed atrophy with chronic microvascular ischemic changes, small chronic lacunar infarct in the right cerebellum and keaton. Seen by neurology at the time and recommendation was for anticoagulation but
patient declined.
Full code
Dispo -not medically stable for discharge yet.
Anticipated Discharge: Within 24 hours
Subjective/Interval History
-
Date of Service: May 17, 2024
Patient seen and examined. Feels better. Denies shortness of breath. No complaints.
Objective Data
-
Vital Signs:
Vital Signs
Temp Pulse Resp BP Pulse Ox
97.8 F 80 18 100/67 96
05/17/24 07:47 05/17/24 07:47 05/17/24 07:47 05/17/24 07:47 05/17/24 07:47
I&O
05/16/24 05/17/24 05/18/24
07:59 06:59 06:59
Intake Total
Output Total
Balance
Review of Systems
-
History Source: Patient
All other systems: Reviewed and negative
--- NOTE | 2024-05-17 10:16 | W.PN.NEPH.PH ---
Today's Communication / Plan
-
next HD saturday
Assessment/Plan
-
Impression:
Recurrent left pleural effusion
ESRD TTS [facility]
Hypertension
Hyperphosphatemia
Paroxysmal atrial fibrillation
Insulin requiring diabetes
Ischemic cardiomyopathy
DM 2 with hyperglycemia
Diabetic peripheral neuropathy
Hyperlipidemia -on atorvastatin.
History of stroke
Plan:
HD saturday
strict renal diet and FR
chest tube management per pulmonary
-
-
Date of Service: May 17, 2024
CC / HPI / ROS
-
Chief Complaint:
ESRD
History of Present Illness:
no SOB/on Room air
tolerated HD yesterday
BP stable
chest tube in place left
Review of Systems:
no CP/SOB
Labs
-
Labs:
WBC 5.8 10^3/uL (4.8-10.8) 05/14/24 07:08
RBC 4.15 10^6/uL (4.70-6.10) L 05/14/24 07:08
Hgb 11.3 g/dL (13.0-18.0) L 05/16/24 16:23
Hct 34.1 % (39.0-52.0) L 05/16/24 16:23
Plt Count 150 10^3/uL (130-400) D 05/14/24 07:08
Sodium 135 mmol/L (135-145) 05/16/24 16:23
Potassium 4.4 mmol/L (3.5-5.1) 05/16/24 16:23
Chloride 97 mmol/L (98-107) L 05/16/24 16:23
Carbon Dioxide 21 mmol/L (22-30) L 05/16/24 16:23
BUN 69 mg/dl (9-20) H 05/14/24 07:08
Creatinine 4.4 mg/dL (0.7-1.3) H* 05/14/24 07:08
eGFR 13.43 05/14/24 07:08
Glucose 260 mg/dl (70-99) H 05/14/24 07:08
Calcium 8.5 mg/dl (8.4-10.2) 05/14/24 07:08
Albumin 3.6 g/dl (3.5-5.0) 05/13/24 18:13
Physical Exam
-
Vital Signs:
Vital Signs
Temp Pulse Resp BP Pulse Ox
97.8 F 80 18 100/67 96
05/17/24 07:47 05/17/24 07:47 05/17/24 07:47 05/17/24 07:47 05/17/24 07:47
Cardiovascular:: Regular rate and rhythm
Respiratory:: Bilateral: Coarse
Lung Excursion:: Normal
Abdomen:: Nontender and Soft
Bowel Sounds:: Normal
Extremity Edema:: None: Bilateral:
[2024-05-17 11:20] LABS: Glucose - Point of Care 87 mg/dl (70-99)
--- NOTE | 2024-05-17 12:55 | W.PN.PUL3 ---
Today's Communication / Plan
-
Clamp chest tube tonight
CT chest in a.m.
Assessment
-
Patient is a 74 year old M with history of ESRD on HD (TTS), recurrent left pleural effusion s/p numerous thoracentesis, chronic HFrEF and recent admission (05/05/24-05/09/24), presenting to ER for progressive SOB, orthopnea. CXR shows recurrent
left moderate pleural effusion, potentially complex. Prior taps demonstrating transudative cell count with negative culture/cytology. We are consulted for eval.
Recurrent L pleural effusion-complex
s/p IR L thora 04/22/24- Successful ultrasound-guided thoracentesis, yielding 100 cc of serosanguineous pleural fluid
08/19/23- L thoracentesis, 1250 cc of clear reese pleural fluid.
07/22/23- L thora - 1250 cc of light reese pleural fluid
CAD with a history of stent-preoperative EF 20-25%
Status post CABG x5-GARZA-LAD/LAD, AO SVG-OM/circumflex, AO SVG-RCA, MAZE and left atrial clip- 05/02/2023 Dr Reyes
Status post recent CHF-reduced EF requiring BiPAP
Ischemic cardiomyopathy-EF 25%
Hypertensive emergency
Paroxysmal atrial fibrillation
Anemia-hemoglobin 9.3
Thrombocytopenia-platelet count 95
Chronic renal failure
Conditions present prior to admission:
Hypertension.
Hyperlipidemia.
Diabetes.
CAD.
Atrial fibrillation.
CHF-EF 25%.
CVA/TIA-2010.
End-stage renal disease on hemodialysis.
Anemia of chronic disease
Occupational exposure-history of working in [employer] for 17 years-asbestos exposure
Right wrist AV fistula.
Plan/recommendations
At this time, patient appears to be comfortable
Pleural fluid relatively benign, LDH with discordant exudate effusion
pH normal. Not consistent with empyema
Pleural fluid cultures pending
Denies pulmonary symptoms
No prior history of lung disease is noted
He does have recurrent pleural effusion since Jul 2023
Thora results in past reviewed in detail:
07/22/23- pH 7.5, wbc 161, glu 221, tp <2.0, ldh 102, culture neg --transudative
04/22/24- wbc 273, ldh 134, culture and cyto neg
Chest tube placed per IR
Moving forward
We will clamp chest tube tonight
CT chest in a.m.
Pending on findings, hope for discontinuation of chest tube
Given the lack of infectious cause, minimal pulmonary symptoms, consider following up as outpatient conservatively
Do not feel intrapleural lytic therapy is warranted at this time, especially given the lack of symptoms
We will hold off at this time given possibility of combination of ex vacuo process with trapped lung physiology and mild bleeding from thoracentesis in the past
Currently he is off antibiotics
Follow cultures
ECHO results reviewed-- 25 to 30% with global HK
Chronic HF history noted
on ESRD, volume removal via HD
Renal following
Will need outpatient pulmonary evaluation in our office for PFTs and 6MWT
Reviewed with patient
Diagnostic Data
CXR 05/13/24- IMPRESSION: 1). There is moderate-sized multilocular fluid collection with multiple air fluid levels at the left lung base. This may be sterile or infected collection and is increased in size when compared with the prior study 2).
There is small right pleural effusion, new when compared with the prior study 3). There is mild cardiomegaly.
04/22/24- Decrease in size of left pleural effusion compatible with history of thoracentesis. No evidence for significant pneumothorax.
Chest x-ray 05/02/2023-moderate left lung atelectasis at the base
CT chest 04/27/2023-severe coronary artery calcifications, trace right pleural effusion, chronic pancreatitis
ECHO 04/23/2023: EF 25 to 30%, global hypokinesis with regional variation, MAC, moderate MR, trace TR, PAP 35 mmHg
Cardiac catheterization 04/25/2023-multivessel CAD
Reports and relevant images were personally reviewed.
Total time spent on this encounter __51__ includes review of history, physical exam, medications, laboratory data, personal review of imaging, extensive review of outpatient records, discussion with care team and respiratory therapy.
Subjective Data
-
Date of Service:
Date of Service: May 17, 2024
Chief Complaint: Pulmonary Follow Up
Subjective:
Patient is without complaints. He denies cough, shortness of breath, chest pain. Chest tube drainage minimal
Objective Data
Data Reviewed
Vital Signs / I&O / Oxygen:
Vital Signs
Temp Pulse Resp BP Pulse Ox
97.8 F 80 18 100/67 96
05/17/24 07:47 05/17/24 07:47 05/17/24 07:47 05/17/24 07:47 05/17/24 07:47
Intake and Output
05/16/24 05/17/24 05/18/24
07:59 06:59 06:59
Intake Total
Output Total
Balance
SaO2 96
Nasal Cannula flow liters per 2
minute
Physical Exam
General: Comfortable and Other (NAD)
HEENT: Normocephalic, Anicteric and Moist Mucous Membranes
Cardiovascular: S1-S2, Regular Rhythm, Murmur (n) and Rub (n)
Respiratory: Clear (decreased at L base), Crackles (n), Rhonchi (n), Non-Labored Respirations and Chest Tube (No airleak)
GI: Soft, Non Distended and Non Tender
Neurology: Awake, Alert and No Motor Deficits
Skin: Warm, Dry and Good Color
Labs/Micro/Reports
Lab Data
05/16/24 16:23
05/16/24 16:23
Microbiology
05/15/24 16:03 Pleural Fluid Body Fluid Culture - Preliminary
No Growth After 48 Hours
05/15/24 16:03 Pleural Fluid Gram Stain - Preliminary
05/14/24 05:40 Nose MRSA Screen - Final
No Methicillin Resistant Staphylococcus aureus isolated.
[2024-05-17] MEDS: NOVOLOG FLEXPEN-LOW RESISTANCE SC (13:08)
[2024-05-17] MEDS: TYLENOL 650 MG PO (14:04)
--- NOTE | 2024-05-17 15:13 | W.PN.UPDATE ---
Update Note
Progress Note Update
Updated daughter (Radhika: [phone]) at length along with and patient by phone
Reviewed plan which includes clamping chest tube tonight and obtaining repeat CT chest 05/18/2024
Discussed how this may be pockets of fluid with ex vacuo as I suspect he does have a pleural rind there at the left base
Also discussed that this could be a BP fistula with air-fluid levels although I doubt this given the relatively simple appearing fluid, lack of air leak
Depending on CT chest findings he may require intrapleural lytic therapy vs discontinuation of chest tube and follow-up as outpatient
I do feel he should follow-up with pulmonary as if workup is negative during current hospital stay, will need to be followed
Prior CT chest April 2023 without any pleural disease
All questions answered
Will continue to follow
[2024-05-17 15:55] VITALS: BP 109/60
[2024-05-17 16:04] LABS: Glucose - Point of Care 155 mg/dl (70-99)
[2024-05-17 19:50] VITALS: BP 135/74
[2024-05-17 20:39] LABS: Glucose - Point of Care 176 mg/dl (70-99)
[2024-05-17] MEDS: LIPITOR 80 MG PO (22:39)
[2024-05-17] MEDS: ASPIR LOW (ENTERIC COATED) 81 MG PO (22:40)
[2024-05-17] MEDS: NEURONTIN 200 MG PO (22:40)
[2024-05-17] MEDS: LANTUS 0.14 UNITS SC (22:44)
[2024-05-17 23:30] VITALS: BP 118/69
[2024-05-18] VITALS (8 sets, daily range): BP systolic 114–133; BP diastolic 67–75; BMI 21.3
[2024-05-18 07:14] LABS: Glucose - Point of Care 175 mg/dl (70-99)
[2024-05-18] MEDS: NOVOLOG FLEXPEN 6 UNITS SC ×3 (07:51→16:50)
[2024-05-18] MEDS: PHOSLO 667 MG PO ×3 (07:51→16:49)
[2024-05-18] MEDS: NOVOLOG FLEXPEN-LOW RESISTANCE 1 UNITS SC ×2 (07:51→11:23)
[2024-05-18] MEDS: COREG 3.125 MG PO ×2 (07:51→19:40)
[2024-05-18] MEDS: NEURONTIN 100 MG PO (07:51)
--- NOTE | 2024-05-18 07:54 | W.PN.PUL3 ---
Today's Communication / Plan
-
Keep chest tube to waterseal
CXR tomorrow AM
CT surgery evaluation for VATS + decortication
If no surgery planned then we will remove chest tube
PT/OT as I feel that physical deconditioning is a large contributor to his dyspnea as his pleural effusions are small in size
HD as per nephrology
Assessment
-
Patient is a 74 year old M with history of ESRD on HD (TTS), recurrent left pleural effusion s/p numerous thoracentesis, chronic HFrEF and recent admission (05/05/24-05/09/24), presenting to ER for progressive SOB, orthopnea. CXR shows recurrent
left moderate pleural effusion, potentially complex. Prior taps demonstrating transudative cell count with negative culture/cytology. We are consulted for eval.
Impression:
Recurrent L pleural effusion-complex
s/p IR L thora 04/22/24- Successful ultrasound-guided thoracentesis, yielding 100 cc of serosanguineous pleural fluid
08/19/23- L thoracentesis, 1250 cc of clear reese pleural fluid.
07/22/23- L thora - 1250 cc of light reese pleural fluid
CAD with a history of stent-preoperative EF 20-25%
Status post CABG x5-GARZA-LAD/LAD, AO SVG-OM/circumflex, AO SVG-RCA, MAZE and left atrial clip- 05/02/2023 Dr Reyes
Status post recent CHF-reduced EF requiring BiPAP
Ischemic cardiomyopathy-EF 25%
Hypertensive emergency
Paroxysmal atrial fibrillation
Anemia-hemoglobin 9.3
Thrombocytopenia-platelet count 95
Chronic renal failure
Physical deconditioning
Conditions present prior to admission:
Hypertension.
Hyperlipidemia.
Diabetes.
CAD.
Atrial fibrillation.
CHF-EF 25%.
CVA/TIA-2010.
End-stage renal disease on hemodialysis.
Anemia of chronic disease
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
Right wrist AV fistula.
Plan/recommendations
At this time, patient appears to be comfortable
Pleural fluid relatively benign, LDH with discordant exudate effusion
pH normal. Not consistent with empyema
Pleural fluid cultures show NGTD
Denies pulmonary symptoms
No prior history of lung disease is noted
He does have recurrent pleural effusion since Jul 2023
Thora results in past reviewed in detail:
07/22/23- pH 7.5, wbc 161, glu 221, tp <2.0, ldh 102, culture neg, cyto negative --transudative
04/22/24- wbc 273, ldh 134, culture neg
Chest tube placed per IR on 05/15/2024
- 90cc output last 24 hrs
- Ct chest obtained this AM (05/18/2024) shows persistent LLL pleural effusion with hydropneumothorax, similar to prior Ct chest on 05/14/2024. Believe that prior instrumentation from thora created a pneumothorax ex vacuo from trapped lung
physiology. He also has a right pleural effusion. Although his co-morbidities and age raise his risk, would recommend CT surgery consult to eval for VATS with decortication.
- keep chest tube to water seal for tonight
- CXR tomorrow AM
- If no surgery planned then will likely remove chest tube
- No need for lytics at this time
Currently he is off antibiotics
Follow cultures
ECHO results from October 2023 reviewed-- 25 to 30% with global hypokinesis
Chronic HF history noted
on ESRD, volume removal via HD
Perhaps he can optimize his HD sessions with more ultrafiltration to see if this helps limit reaccumulation into the pleural space
Renal following
Will need outpatient pulmonary evaluation in our office for PFTs and 6MWT
Reviewed with patient and at bedside and all questions were answered
Pulmonary service will continue to follow along while he remains hospitalized
Diagnostic Data
CXR 05/13/24- IMPRESSION: 1). There is moderate-sized multilocular fluid collection with multiple air fluid levels at the left lung base. This may be sterile or infected collection and is increased in size when compared with the prior study 2).
There is small right pleural effusion, new when compared with the prior study 3). There is mild cardiomegaly.
04/22/24- Decrease in size of left pleural effusion compatible with history of thoracentesis. No evidence for significant pneumothorax.
Chest x-ray 05/02/2023-moderate left lung atelectasis at the base
CT chest 04/27/2023-severe coronary artery calcifications, trace right pleural effusion, chronic pancreatitis
ECHO 04/23/2023: EF 25 to 30%, global hypokinesis with regional variation, MAC, moderate MR, trace TR, PAP 35 mmHg
Cardiac catheterization 04/25/2023-multivessel CAD
Reports and relevant images were personally reviewed.
Total time spent today was 38 minutes for this encounter. Time includes reviewing laboratory test/imaging results, reviewing pertinent medical records, obtaining and reviewing medical history, performing an appropriate exam, ordering medications,
tests and procedures. Time also includes documentation of this encounter, coordinating patient care and communicating with other healthcare professionals. Total time does not include separately billed tests performed on this date of service.
Subjective Data
-
Date of Service:
Date of Service: May 18, 2024
Chief Complaint: Pulmonary Follow Up
Subjective:
Patient was seen and evaluated today at bedside. Chest tube is currently clamped. I unclamped there was no air leak upon coughing. He is here with his , Radhika, and all questions were answered. He still feels very fatigued during exertion and
resultantly becomes short of breath. He did say that he feels better with his breathing today. His chest tube put out 90 cc over last 24 hours. Currently denies chest pain, CARLSON, abdominal pain, nausea, fevers or chills.
Review of Systems
General: Other (Negative unless mentioned above)
Objective Data
Data Reviewed
Vital Signs / I&O / Oxygen:
Vital Signs
Temp Pulse Resp BP Pulse Ox
97.5 F 81 18 115/70 97
05/18/24 03:00 05/18/24 03:00 05/18/24 03:00 05/18/24 03:00 05/18/24 03:00
Intake and Output
05/17/24 05/18/24 05/19/24
06:59 06:59 06:59
Intake Total 840 / 840
Output Total 90 / 90
Balance 750 / 750
SaO2 97
Nasal Cannula flow liters per 2
minute
Physical Exam
General: Respiratory Distress (negative), Comfortable and Other (NAD)
HEENT: Normocephalic and Anicteric
Cardiovascular: S1-S2, Murmur (n), Rub (n) and Peripheral Edema (negative)
Respiratory: Clear (decreased at L base), Wheeze (negative), Crackles (Bibasilar (L >R)), Rhonchi (n), Accessory Resp Muscle Use (negative) and Chest Tube (No airleak)
GI: Soft, Non Distended, Non Tender and Normal Bowel Sounds
Neurology: Awake, Alert and Tremors (negative)
Skin: Warm, Dry, Good Color and Other (Distal RUE AVF with+ thrill, +pulsation and +bruit)
Labs/Micro/Reports
Lab Data
05/16/24 16:23
05/16/24 16:23
Microbiology
05/15/24 16:03 Pleural Fluid Body Fluid Culture - Preliminary
No Growth After 48 Hours
05/15/24 16:03 Pleural Fluid Gram Stain - Preliminary
05/14/24 05:40 Nose MRSA Screen - Final
No Methicillin Resistant Staphylococcus aureus isolated.
--- NOTE | 2024-05-18 09:15 | W.PN.HOSP.TC ---
Today's Communication/Plan
-
Chest tube to waterseal
CXR tomorrow AM
Appreciate pulmonary and cardiothoracic surgery
Assessment / Plan
Assessment / Plan
Physical Exam
Gen-AAOx3, NAD
HEENT-NC, AT, anicteric, clear oral mm
Neck-supple
CV-reg, no M, +S1/S2
Lungs-clear B/L
Abd-soft, NT, ND
Ext-no edema
Musculoskeletal-no cyanosis, clubbing
Skin-warm and dry
Neuro-grossly non-focal
Psych-calm, cooperative
Assessment/Plan
Recurrent left pleural effusion -chest tube placed under CT guidance 05/15. Fluid noted to be small but heavily loculated. Bloody fluid obtained, not purulent. pH 7.4. This is the patient's first chest tube. Fluid culture without growth. Gram
stain negative for organisms. Chest CT from 05/18/24: per pulmonary, patient must have rind around his left lower lobe and it is causing partial re-inflation of his LLL. CT surgery consulted to see whether they think patient would benefit from a
VATS with decortication. Continue chest tube with waterseal, as per pulmonary.
ESRD -on dialysis Saturday//Saturday. States he has been compliant with sodium and fluid restriction. However, his weight is above his dry weight, currently 66 kg. Dry weight is 61 kg. Nephrology onboard, dialysis.
Chronic heart failure reduced EF -stable.
Pancytopenia -unclear etiology. White blood cell count and platelet count have recovered. Would follow-up with PCP after discharge.
Essential hypertension -stable.
DM 2 with hyperglycemia -on Lantus 14 units at bedtime, NovoLog sliding scale at home. Continue Insulin. Diabetes CUPOLA HOIST OPERATOR consulted, appreciate their evaluation and recommendations.
Diabetic peripheral neuropathy
Hyperlipidemia -on atorvastatin.
Paroxysmal atrial fibrillation -not on anticoagulation by patient choice. Continue aspirin. Was on amiodarone outpatient??
History of stroke -recent brain MRI 05/06/2024 showed atrophy with chronic microvascular ischemic changes, small chronic lacunar infarct in the right cerebellum and keaton. Seen by neurology at the time and recommendation was for anticoagulation but
patient declined.
Full code
Dispo -not medically stable for discharge yet.
Anticipated Discharge: 24 - 48 hours
Subjective/Interval History
-
Date of Service: May 18, 2024
Patient was seen and examined. He reported that he is breathing better and denied any new symptoms or complaints.
Objective Data
-
Vital Signs:
Vital Signs
Temp Pulse Resp BP Pulse Ox
97.5 F 81 18 115/70 97
05/18/24 03:00 05/18/24 03:00 05/18/24 03:00 05/18/24 03:00 05/18/24 03:00
I&O
05/17/24 05/18/24 05/19/24
06:59 06:59 06:59
Intake Total 840 / 840
Output Total 90 / 90
Balance 750 / 750
--- NOTE | 2024-05-18 09:21 | PTCARENOTE ---
recieved in AM, bedside report from previous shift. chest tube clamped. CT chest this AM. patient is ambulatory, reports feeling weak. fall precautions reinforced. bed alarm on. cont to monitor
--- NOTE | 2024-05-18 09:36 | W.PN.NEPH.PH ---
Today's Communication / Plan
-
Dialysis tomorrow
Scan today following clamping of CT tube
Assessment/Plan
-
Impression:
Recurrent left pleural effusion
ESRD TTS [facility]
Hypertension
Hyperphosphatemia
Paroxysmal atrial fibrillation
Insulin requiring diabetes
Ischemic cardiomyopathy
DM 2 with hyperglycemia
Diabetic peripheral neuropathy
Hyperlipidemia -on atorvastatin.
History of stroke
Plan:
HD saturday, orders provided
strict renal diet and FR
chest tube management per pulmonary, will repeat CT scan today following clamping of chest tube
-
-
Date of Service: May 18, 2024
CC / HPI / ROS
-
Chief Complaint:
ESRD
History of Present Illness:
no SOB/on Room air
End-stage renal disease Saturday dialysis
BP stable
chest tube in place left
Review of Systems:
no CP/SOB
Labs
-
Labs:
WBC 5.8 10^3/uL (4.8-10.8) 05/14/24 07:08
RBC 4.15 10^6/uL (4.70-6.10) L 05/14/24 07:08
Hgb 11.3 g/dL (13.0-18.0) L 05/16/24 16:23
Hct 34.1 % (39.0-52.0) L 05/16/24 16:23
Plt Count 150 10^3/uL (130-400) D 05/14/24 07:08
Sodium 135 mmol/L (135-145) 05/16/24 16:23
Potassium 4.4 mmol/L (3.5-5.1) 05/16/24 16:23
Chloride 97 mmol/L (98-107) L 05/16/24 16:23
Carbon Dioxide 21 mmol/L (22-30) L 05/16/24 16:23
BUN 69 mg/dl (9-20) H 05/14/24 07:08
Creatinine 4.4 mg/dL (0.7-1.3) H* 05/14/24 07:08
eGFR 13.43 05/14/24 07:08
Glucose 260 mg/dl (70-99) H 05/14/24 07:08
Calcium 8.5 mg/dl (8.4-10.2) 05/14/24 07:08
Albumin 3.6 g/dl (3.5-5.0) 05/13/24 18:13
Physical Exam
-
Vital Signs:
Vital Signs
Temp Pulse Resp BP Pulse Ox
97.5 F 81 18 115/70 97
05/18/24 03:00 05/18/24 03:00 05/18/24 03:00 05/18/24 03:00 05/18/24 03:00
Cardiovascular:: Regular rate and rhythm
Respiratory:: Bilateral: Coarse
Lung Excursion:: Normal
Abdomen:: Nontender and Soft
Bowel Sounds:: Normal
Extremity Edema:: None: Bilateral:
Other Findings::
Left chest tube
[2024-05-18 10:54] LABS: Glucose - Point of Care 163 mg/dl (70-99)
--- NOTE | 2024-05-18 11:46 | CM ---
CM reviewed chart, spoke with Lucia ([phone]) from [facility]- obtained fax [phone], clinicals sent. Patient for CT scan today. CM will continue to follow for all discharge planning needs.
Plan; home with significant other, outpatient HD through [facility].
--- NOTE | 2024-05-18 16:39 | CONSULT.CT ---
Consultation
-
Date/Time Consultation Requested: 05/18 1635
Date/Time Consultation Performed: 05/18 1641
Requesting Provider: Lainey
Performing Provider: Bon Mazariegos MD
Reason for Consultation: Decortication
Patient History
Physicians
Family Physician: Olman Dougherty
History of Present Illness
74-year-old male with past medical history significant for end-stage renal disease CAD s/p cardiac stents and CABG x 5 in April 2023, ischemic cardiomyopathy, PAF, HTN, HLD, COPD, DM [address] [facility] on 05/13 with progressive
shortness of breath. He had hemodialysis the day prior to admission and chest x-ray revealed a moderate left pleural effusion. IR was consulted for thoracentesis/chest tube placement. A CT guided chest tube was placed on 05/15. On CAT scan on
05/18 that showed a small left basilar hydropneumothorax with pleural thickening therefore CT surgery was consulted for a pleurodesis.
Past Medical History
Past Medical History: Atrial Fib, CAD, HTN, Hypercholesterolemia, Hyperthyroidism, NIDDM, CT and Renal Failure
Past Surgical History
Past Surgical History: CABG and PCI/Stent
- chest tube placement
- RUE AV Fistula placement
Social History
Alcohol: Occasional
Drug: Narcotics (recent addiction to Tramadol--stopped 1 week ago)
Tobacco: Non-Smoker
Personal:
Living: With Spouse
Employment: Retired
Allergies
Allergy/AdvReac Type Severity Reaction Status Date / Time
No Known Allergies Allergy Verified 05/13/24 18:01
Home Medications
�Medication �Instructions �Recorded �Confirmed �Type
atorvastatin 80 mg tablet 80 mg PO HS High Cholesterol 03/05/23 05/14/24 History
calcium acetate 667 mg tablet 667 mg PO MEALS Kidney Disease 03/05/23 05/14/24 History
aspirin 81 mg tablet,delayed 81 mg PO HS Blood Clot 05/02/23 05/14/24 History
release Prevention/Tx
carvedilol 3.125 mg tablet (Coreg) 3.125 mg PO BID Heart 07/17/23 05/14/24 History
Disease/Condition
gabapentin 100 mg capsule 200 mg PO HS Pain 07/17/23 05/14/24 History
acetaminophen 325 mg tablet 625 mg PO Q4HPRN PRN mild pain 05/05/24 05/13/24 History
(Tylenol)
nitroglycerin 0.4 mg sublingual 0.4 mg sublingual [id number] PRN 05/05/24 05/13/24 History
tablet chest pain
insulin glargine 100 unit/mL (3 14 unit (0.14 mL) SC HS Diabetes 05/09/24 05/14/24 Rx
mL) subcutaneous pen (Lantus #0 mL
Solostar U-100 Insulin)
apixaban 5 mg tablet (Eliquis) 5 mg PO .SEE BELOW Blood Clot 05/13/24 05/14/24 History
Prevention/Tx
gabapentin 100 mg capsule 100 mg PO DAILY Pain 05/13/24 05/14/24 History
insulin aspart U-100 100 unit/mL 0 sliding scale dose SC AC 05/13/24 05/14/24 History
(3 mL) subcutaneous pen (Novolog
FlexPen U-100 Insulin aspart)
Review of Systems
-
History Source: Patient and Family (and at bedside)
General: Reports Sleep Disturbance
HEENT: Reports No Symptoms
Respiratory: Reports NICHOLS and Other (orthopnea); Denies SOB
Cardiac: Denies Chest Pain
Abdomen/GI: Reports No Symptoms
: Reports No Symptoms
Neurological: Reports TIA; Denies CVA (recent evaluation for R sided weakness; no CVA per )
Physical Exam
Vital Signs
Temp 97.5 F 05/18/24 11:30
Temp route: Oral 05/18/24 11:30
Pulse 81 05/18/24 11:30
Rhythm: Normal sinus rhythm 05/18/24 08:23
With- Bundle Branch Block Confi, PVC's Monomorphic 05/18/24 08:23
Resp Rate 20 05/18/24 11:30
Blood pressure 114/75 05/18/24 11:30
Blood pressure extremity used: Left upper arm 05/18/24 11:30
Position: Lying 05/18/24 11:30
MAP (cuff-Roscoe Monitor) 100 05/14/24 04:00
SaO2 99 05/18/24 11:30
Nasal Cannula flow liters per minute 2 05/15/24 15:49
Oxygen Mode of Delivery Room air 05/18/24 11:30
Can the patient verbally communicate their pain? Yes 05/18/24 08:23
Pain scale ratin 05/17/24 15:04
Actual Weight 61.717 kg 05/18/24 05:50
Body Mass Index (BMI) 21.3 05/18/24 05:50
Supine- Blood Pressure 120/71 05/18/24 14:57
Labs
05/16/24 16:23
05/16/24 16:23
Troponin I 0.150 ng/ml H* 05/13/24 19:59
Exam
General: No Apparent Distress
HEENT: Normocephalic and Anicteric
Respiratory: Other (R side clear to auscultation; Left with diminished base)
Cardiac: Regular Rhythm; Negative Murmur
GI: Soft and Non Tender
Skin: Warm and Dry
Neuro: Nonfocal/Grossly Intact
Extremities: Negative Lower Level Edema
Psych: Calm
Assessment / Plan
-
74-year-old male with past medical history listed above presented with a moderate left pleural effusion. Subsequent CAT scan revealed left lower lobe thickening and CT surgery was consulted for VATS/pleurodesis.
#Small left basilar hydropneumothorax with pleural thickening
- Dr. Mazariegos will evaluate tomorrow
- Possible outpatient eval given the patient's symptoms
[2024-05-18 16:46] LABS: Glucose - Point of Care 221 mg/dl (70-99)
[2024-05-18] MEDS: NOVOLOG FLEXPEN-LOW RESISTANCE 2 UNITS SC (16:49)
[2024-05-18 17:20] LABS: Glucose - Point of Care 248 mg/dl (70-99)
--- NOTE | 2024-05-18 17:51 | PTCARENOTE ---
patient with left chest tube off suction that has been clamped as of 05/17 2200. seen by pulmonary. ordered to keep to water seal, no suction until further evaluation by CT surgery tomorrow. patient denies any pain/discomfort on left side, does
have NICHOLS and orthopnea at baseline. on RA, POX stable. will cont to monitor
[2024-05-18 20:51] LABS: Glucose - Point of Care 320 mg/dl (70-99)
[2024-05-18] MEDS: ASPIR LOW (ENTERIC COATED) 81 MG PO (21:12)
[2024-05-18] MEDS: LANTUS 0.14 UNITS SC (21:12)
[2024-05-18] MEDS: LIPITOR 80 MG PO (21:13)
[2024-05-18] MEDS: NEURONTIN 200 MG PO (21:13)
[2024-05-19] VITALS (7 sets, daily range): BP systolic 109–124; BP diastolic 54–75; PULSE 76; O2SAT 98; BMI 21.4
[2024-05-19] MEDS: TYLENOL 650 MG PO ×4 (00:28→19:58)
--- NOTE | 2024-05-19 07:30 | PN.DE.MGMTRT ---
Insulin Management
- -
05/19/2024 Diabetes Management Consult
Patient admitted 05/13 with recurrent SOB, recurrent L pleural effusion. PMH CAD with stents, HTN, diabetes, renal failure with HD, COPD, paroxysmal afib, r thoracentesis, tramadol dependence. Prior to admission patient taking novolog ss with
meals and lantus 14 units @ hs. A1C 8.9, cr 4.4, eGFR 13.43.
Patient receiving HD at time of my visit, sleeping, not able to discuss diabetes management.
Currently receiving novolog 6 units AC with 14 units lantus @ HS.
05/18 Glucose range 163 to 320 @ HS.
05/19 Fasting glucose 162. Will increase hs lantus to 16 units and AC novolog to 8 units with low corrective insulin. Diet is 1800 calorie.
Discussed changes with patients nurse.
Diabetes History
- -
Type of Diabetes: 2 requiring insulin
Pre-Admission Diabetes Regimen
Insulin Pump Settings
IP Diabetes Regimen
05/18/24 05/18/24 05/18/24
10:53 16:45 17:19
POC Glucose 163 H 221 H 248 H
05/18/24
20:50
POC Glucose 320 H
Meal type: Breakfast
Amount consumed: 100%
Patient Education
[2024-05-19 07:49] LABS: Glucose - Point of Care 162 mg/dl (70-99)
[2024-05-19] MEDS: NOVOLOG FLEXPEN-LOW RESISTANCE 1 UNITS SC ×2 (07:49→16:47)
[2024-05-19] MEDS: NOVOLOG FLEXPEN 8 UNITS SC (07:50)
[2024-05-19 08:37] LABS: Hematocrit 32.5 % (39.0-52.0); Hemoglobin 10.6 g/dL (13.0-18.0)
[2024-05-19 08:56] LABS: Carbon Dioxide 21 mmol/L (22-30); Chloride 98 mmol/L (98-107); Potassium 3.9 mmol/L (3.5-5.1); Sodium 136 mmol/L (135-145)
--- NOTE | 2024-05-19 09:27 | W.PN.PUL3 ---
Today's Communication / Plan
-
Start tPA/dnase instillation through chest tube--> received first dose today by IR and I will instill second dose tonight
CXR tomorrow AM
CT surgery evaluation - pt not a candidate for VATS + decortication
PT/OT as I feel that physical deconditioning is a large contributor to his dyspnea as his pleural effusions are small in size - PT rec'd home health
HD as per nephrology
Pulmonary service will continue to follow along
Assessment
-
Patient is a 74 year old M with history of ESRD on HD (TTS), recurrent left pleural effusion s/p numerous thoracentesis, chronic HFrEF and recent admission (05/05/24-05/09/24), presenting to ER for progressive SOB, orthopnea. CXR shows recurrent
left moderate pleural effusion, potentially complex. Prior taps demonstrating transudative cell count with negative culture/cytology. We are consulted for eval.
Impression:
Recurrent L pleural effusion-complex
s/p IR L thora 04/22/24- Successful ultrasound-guided thoracentesis, yielding 100 cc of serosanguineous pleural fluid
08/19/23- L thoracentesis, 1250 cc of clear reese pleural fluid.
07/22/23- L thora - 1250 cc of light reese pleural fluid
CAD with a history of stent-preoperative EF 20-25%
Status post CABG x5-GARZA-LAD/LAD, AO SVG-OM/circumflex, AO SVG-RCA, MAZE and left atrial clip- 05/02/2023 Dr Reyes
Status post recent CHF-reduced EF requiring BiPAP
Ischemic cardiomyopathy-EF 25%
Hypertensive emergency
Paroxysmal atrial fibrillation
Anemia-hemoglobin 9.3
Thrombocytopenia-platelet count 95
Chronic renal failure
Physical deconditioning
Conditions present prior to admission:
Hypertension.
Hyperlipidemia.
Diabetes.
CAD.
Atrial fibrillation.
CHF-EF 25%.
CVA/TIA-2010.
End-stage renal disease on hemodialysis.
Anemia of chronic disease
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
Right wrist AV fistula.
Plan/recommendations
At this time, patient appears to be comfortable
Pleural fluid relatively benign, LDH with discordant exudate effusion
pH normal. Not consistent with empyema
Pleural fluid cultures show NGTD
Denies pulmonary symptoms
No prior history of lung disease is noted
He does have recurrent pleural effusion since Jul 2023
Thora results in past reviewed in detail:
07/22/23- pH 7.5, wbc 161, glu 221, tp <2.0, ldh 102, culture neg, cyto negative --transudative
04/22/24- wbc 273, ldh 134, culture neg
Chest tube placed per IR on 05/15/2024
- 90cc output in 24 hrs from 05/17 - 05/18/2024
- Ct chest obtained on AM of 05/18/2024 showed persistent LLL pleural effusion with hydropneumothorax, similar to prior CT chest on 05/14/2024. Believe that prior instrumentation from thora created a pneumothorax ex vacuo from trapped lung
physiology. He also has a right pleural effusion. CT surgery consulted to evaluate for VATS with decortication and he is not a surgical candidate
- tPA/dornase was recommended and he obtained his first dose today (05/19/2024) by IR
- I will give him a second dose tonight, with instructions to RN to clamp chest tube X 2 hours before reapplying to suction at -20 cmH2O
Currently he is off antibiotics
Follow cultures
ECHO results from October 2023 reviewed-- 25 to 30% with global hypokinesis
Chronic HF history noted
on ESRD, volume removal via HD
Perhaps he can optimize his HD sessions with more ultrafiltration to see if this helps limit reaccumulation into the pleural space
Renal following
Will need outpatient pulmonary evaluation in our office for PFTs and 6MWT
Reviewed with patient and at bedside and all questions were answered
I discussed the patient's case with the as well as daughter, Yasmeen, and all questions were answered today.
Pulmonary service will continue to follow along while he remains hospitalized
Diagnostic Data
CXR 05/13/24- IMPRESSION: 1). There is moderate-sized multilocular fluid collection with multiple air fluid levels at the left lung base. This may be sterile or infected collection and is increased in size when compared with the prior study 2).
There is small right pleural effusion, new when compared with the prior study 3). There is mild cardiomegaly.
04/22/24- Decrease in size of left pleural effusion compatible with history of thoracentesis. No evidence for significant pneumothorax.
Chest x-ray 05/02/2023-moderate left lung atelectasis at the base
CT chest 04/27/2023-severe coronary artery calcifications, trace right pleural effusion, chronic pancreatitis
ECHO 04/23/2023: EF 25 to 30%, global hypokinesis with regional variation, MAC, moderate MR, trace TR, PAP 35 mmHg
Cardiac catheterization 04/25/2023-multivessel CAD
Reports and relevant images were personally reviewed.
Total time spent today was 37 minutes for this encounter. Time includes reviewing laboratory test/imaging results, reviewing pertinent medical records, obtaining and reviewing medical history, performing an appropriate exam, ordering medications,
tests and procedures. Time also includes documentation of this encounter, coordinating patient care and communicating with other healthcare professionals. Total time does not include separately billed tests performed on this date of service.
Subjective Data
-
Date of Service:
Date of Service: May 19, 2024
Chief Complaint: Pulmonary Follow Up
Subjective:
Patient seen and evaluated today at bedside. Afebrile overnight. Currently on room air breathing comfortably. Chest tubes currently on waterseal. Seen by cardiothoracic surgery today and he is not a surgical candidate, with plan to do lytic
chest tube instillations to try to clear out left-sided loculated effusion. He is very eager to go home. Still feeling fatigued with activity. at bedside and all questions were answered. I also spoke to his daughter, Yasmeen, over the phone
(she is a welfare case worker). He denies chest pain, CARLSON, abdominal pain, nausea, fevers or chills.
Review of Systems
General: Other (Negative unless mentioned above)
Objective Data
Data Reviewed
Vital Signs / I&O / Oxygen:
Vital Signs
Temp Pulse Resp BP Pulse Ox
97.7 F 77 22 112/70 99
05/19/24 07:00 05/19/24 07:00 05/19/24 07:00 05/19/24 07:00 05/19/24 07:00
Intake and Output
05/18/24 05/19/24 05/20/24
06:59 06:59 06:59
Intake Total 840 / 840 1280 / 1280
Output Total 90 / 90 403 / 403
Balance 750 / 750 877 / 877
SaO2 99
Nasal Cannula flow liters per 2
minute
Physical Exam
General: Respiratory Distress (negative), Comfortable and Other (NAD)
HEENT: Normocephalic and Anicteric
Cardiovascular: S1-S2, Murmur (n), Rub (n) and Peripheral Edema (negative)
Respiratory: Wheeze (negative), Crackles (Bibasilar (L >R)), Rhonchi (n), Accessory Resp Muscle Use (negative), Chest Tube (No airleak seen) and Other (Diminished breath sounds at left base)
GI: Soft, Non Distended, Non Tender and Normal Bowel Sounds
Neurology: AO x 3 and Tremors (negative)
Skin: Warm, Dry, Good Color and Other (Distal RUE AVF with+ thrill, +pulsation and +bruit)
Labs/Micro/Reports
Lab Data
05/19/24 08:26
05/19/24 08:26
Microbiology
05/15/24 16:03 Pleural Fluid Body Fluid Culture - Final
No Growth After 72 Hours
05/15/24 16:03 Pleural Fluid Gram Stain - Final
--- NOTE | 2024-05-19 09:42 | W.PN.UPDATE ---
Update Note
Progress Note Update
Case was discussed with Dr. Mazariegos. Given the patient's frailty and recent tramadol addiction we feel that the patient would be best served with tPA/dornase for the collection in the left chest. Intervention was discussed with hospitalist and IR will
be consulted.
--- NOTE | 2024-05-19 09:48 | W.PN.NEPH.HD ---
Assessment
-
Patient seen on HD
sbp at 115 at current u/f
holding second dose of heparin for chest tube
Progress Note - Hemodialysis
-
Date of Service: May 19, 2024
Duration: 30 minutes and 3 hours
Potassium Bath: 2
Calcium Bath: 2.5
Opti-Dialyzer: 160
Ultrafiltration: Other (2kg)
Blood Flow: 400
Dialysate Flow: 600
Heparin: 500 times two
EPO: none
[2024-05-19 12:08] LABS: Glucose - Point of Care 56 mg/dl (70-99)
[2024-05-19 12:29] LABS: Glucose - Point of Care 73 mg/dl (70-99)
--- NOTE | 2024-05-19 12:31 | PTCARENOTE ---
accu check 56. treated per protocol, repeat accu check 72. diabetic nurse educator made aware.
[2024-05-19] MEDS: NOVOLOG FLEXPEN-LOW RESISTANCE SC (12:47)
[2024-05-19] MEDS: NOVOLOG FLEXPEN SC (12:48)
[2024-05-19] MEDS: NEURONTIN 100 MG PO (12:59)
[2024-05-19] MEDS: NOVOLOG FLEXPEN 6 UNITS SC ×2 (12:59→16:48)
[2024-05-19] MEDS: COREG 3.125 MG PO ×2 (12:59→19:58)
[2024-05-19] MEDS: PHOSLO 667 MG PO ×2 (12:59→16:56)
[2024-05-19] MEDS: PHOSLO PO (13:02)
--- NOTE | 2024-05-19 14:28 | W.PN.HOSP.TC ---
Today's Communication/Plan
-
Spoke with cardiothoracic surgery, patient is not stable for discharge yet
Patient needs tPA/Dornase with IR today
Dialysis as per nephrology
Appreciate pulmonary and cardiothoracic surgery
Assessment / Plan
Assessment / Plan
Physical Exam
Gen-AAOx3, NAD
HEENT-NC, AT, anicteric, clear oral mm
Neck-supple
CV-reg, no M, +S1/S2
Lungs-clear B/L
Abd-soft, NT, ND
Ext-no edema
Musculoskeletal-no cyanosis
Skin-warm and dry
Neuro-grossly non-focal
Psych-calm, cooperative
Assessment/Plan
Recurrent left pleural effusion -chest tube placed under CT guidance 05/15. Fluid noted to be small but heavily loculated. Bloody fluid obtained, not purulent. pH 7.4. This is the patient's first chest tube. Fluid culture without growth. Gram
stain negative for organisms. Chest CT from 05/18/24: per pulmonary, patient must have rind around his left lower lobe and it is causing partial re-inflation of his LLL. CT surgery consulted to see whether they think patient would benefit from a
VATS with decortication -- but no plans for surgery at this time, especially with his recent Tramadol use. IR consulted for tPA/Dornase for the collection in the left chest. Continue chest tube with waterseal, as per cardiothroacic surgery and
pulmonary.
ESRD -on dialysis Saturday//Saturday. States he has been compliant with sodium and fluid restriction. However, his weight is above his dry weight, currently 66 kg. Dry weight is 61 kg. Nephrology onboard, dialysis.
Chronic heart failure reduced EF -stable.
Pancytopenia -unclear etiology. White blood cell count and platelet count have recovered. Would follow-up with PCP after discharge.
Essential hypertension -stable.
DM 2 with hyperglycemia -on Lantus 14 units at bedtime, NovoLog sliding scale at home. Continue Insulin. Diabetes ECONOMIC MANAGER consulted, appreciate their evaluation and recommendations.
Diabetic peripheral neuropathy
Hyperlipidemia -on atorvastatin.
Paroxysmal atrial fibrillation -not on anticoagulation by patient choice. Continue aspirin. Was on amiodarone outpatient??
History of stroke -recent brain MRI 05/06/2024 showed atrophy with chronic microvascular ischemic changes, small chronic lacunar infarct in the right cerebellum and keaton. Seen by neurology at the time and recommendation was for anticoagulation but
patient declined.
Full code
Anticipated Discharge: 24 - 48 hours
Subjective/Interval History
-
Date of Service: May 19, 2024
Patient was seen and examined. He denied any chest pain, SOB or any other complaints.
Objective Data
-
Labs:
Laboratory Results
05/19/24
08:26
Hgb 10.6 L
Hct 32.5 L
Sodium 136
Potassium 3.9
Chloride 98
Carbon Dioxide 21 L
Vital Signs:
Vital Signs
Temp Pulse Resp BP Pulse Ox
97.5 F 73 21 113/75 99
05/19/24 11:00 05/19/24 11:00 05/19/24 11:00 05/19/24 11:00 05/19/24 11:00
I&O
05/18/24 05/19/24 05/20/24
06:59 06:59 06:59
Intake Total 840 / 840 1280 / 1280
Output Total 90 / 90 403 / 403
Balance 750 / 750 877 / 877
[2024-05-19 14:31] LABS: Glucose - Point of Care 140 mg/dl (70-99)
--- NOTE | 2024-05-19 15:09 | PN.IRAD.UPD ---
Update Note - IRAD
- -
TPA AND DORNASE instilled via left chest tube at bedside @ 11;50 am . Catheter clamped at that time. RN notified at that time.
--- NOTE | 2024-05-19 16:19 | CM ---
digital program manager reviewed patient's chart and patient reports that he lives with his spouse is independent with adl's and ambulation, patient with ESRD and goes to [facility] in [place], Saturday 9:30 am chair time, saul's spouse
transport patient to HD at [facility].
Plan; Home with spouse and HD at [facility] in [place]
[facility] in [place]
--- NOTE | 2024-05-19 16:34 | PTCARENOTE ---
chest tube unclamped and connected to suction post TPA and Dornase instillation at 2pm. patient soon complained of left side feeling sore, PRN Tylenol admin for pain. follow up treatment scheduled for later tonight. all needs anticipated at this
time, cont to monitor the patient
[2024-05-19 16:43] LABS: Glucose - Point of Care 198 mg/dl (70-99)
--- NOTE | 2024-05-19 18:23 | PTCARENOTE ---
second treatment with TPA and Dornase completed at bedside, patient tolerated well. will keep chest tube clamped until2019. shift foreman aware.
--- NOTE | 2024-05-19 18:24 | W.PN.UPDATE ---
Update Note
Progress Note Update
Date of Procedure: 05/19/2024
Indication: Loculated unilateral left-sided pleural effusion
Performed by: Dr. Camacho
Complications: No immediate complications
Medications used: 10 mg tPA, 5 mg dornase
IVF Flushing used: 30 cc of NS 0.9%
Operative Details: After verbal consent obtained, patient was positioned into recumbent position so that I could access the chest tube. Chest tube was clamped, and sterile technique was employed including: hand washing, sterile gloves, mask and
gown. Chest tube tubing was disconnected so that I could access opening, and normal saline 0.9% was flushed into chest tube without resistance. 10mg of tPA and 5mg of dornase were instilled without incident, and flushed with 10cc of NS 0.9% after
each instillation. Alcohol wipes were used to wipe down the catheter tips and the chest tube tubing site before and after each instillation to maximize sterility. Chest tube was then clamped and is to remain off suction for 120 minutes, at which
point the chest tube should be unclamped and then placed back onto suction at -[id number] (unless specified otherwise by provider). Bedside RN assisted with procedure. Patient tolerated procedure without any immediate complications, and I answered
all of his questions.
[2024-05-19] MEDS: PULMOZYME 50 MG INTRAPLEUR (18:28)
[2024-05-19] MEDS: PULMOZYME 50 ML INTRAPLEUR (18:28)
[2024-05-19] MEDS: CATHFLO/ACTIVASE 50 MG INTRAPLEUR (18:29)
[2024-05-19] MEDS: CATHFLO/ACTIVASE 50 ML INTRAPLEUR (18:29)
[2024-05-19] MEDS: NSS 25 ML INTRAPLEUR (18:30)
--- NOTE | 2024-05-19 20:47 | PTCARENOTE ---
per order, @ 20:30, stopcock turned into neutral position and chest tube re attached to suction at -20 cmH20. Bloody/ serosanguineous drainage draining into Pleur Vac. Patient tolerating well.
[2024-05-19 21:15] LABS: Glucose - Point of Care 247 mg/dl (70-99)
[2024-05-19] MEDS: LANTUS 0.16 UNITS SC (21:21)
[2024-05-19] MEDS: ASPIR LOW (ENTERIC COATED) 81 MG PO (21:21)
[2024-05-19] MEDS: NEURONTIN 200 MG PO (21:22)
[2024-05-19] MEDS: LIPITOR 80 MG PO (21:22)
[2024-05-20] MEDS: TYLENOL 650 MG PO ×4 (01:12→22:40)
[2024-05-20 03:13] LABS: Glucose - Point of Care 361 mg/dl (70-99)
[2024-05-20 06:00] VITALS: BMI 22.2
[2024-05-20 07:50] LABS: Glucose - Point of Care 169 mg/dl (70-99)
--- NOTE | 2024-05-20 08:11 | PN.DE.MGMTRT ---
Insulin Management
- -
05/20/2024 Diabetes Management Consult Follow up
Patient admitted 05/13 with recurrent SOB, recurrent L pleural effusion. PMH CAD with stents, HTN, diabetes, renal failure with HD, COPD, paroxysmal afib, r thoracentesis, tramadol dependence. Prior to admission patient taking novolog ss with
meals and lantus 14 units @ hs. A1C 8.9, cr 4.4, eGFR 13.43.
Patient awake alert and oriented, able to discuss diabetes management.
Currently receiving novolog 6 units AC with 14 units lantus @ HS.
05/19 Glucose range 56 to 247 @ HS.
05/20 Fasting glucose 169. Will continue hs lantus 16 units and AC novolog 6 units with breakfast and lunch, increase to 8 units with dinner with low corrective insulin. Diet is 1800 calorie.
Discussed changes with patients nurse.
Diabetes History
- -
Type of Diabetes: 2 requiring insulin
Pre-Admission Diabetes Regimen
Insulin Pump Settings
IP Diabetes Regimen
05/19/24 05/19/24 05/19/24
12:07 12:27 14:30
POC Glucose 56 L 73 140 H
05/19/24 05/19/24 05/20/24
16:41 21:15 03:12
POC Glucose 198 H 247 H 361 H
05/20/24
07:48
POC Glucose 169 H
Meal type: Dinner
Amount consumed: 100%
Patient Education
[2024-05-20 08:24] VITALS: BP 111/67
[2024-05-20] MEDS: NOVOLOG FLEXPEN-LOW RESISTANCE 1 UNITS SC ×2 (09:15→17:17)
[2024-05-20] MEDS: COREG 3.125 MG PO ×2 (09:16→19:40)
[2024-05-20] MEDS: PHOSLO 667 MG PO ×3 (09:17→17:17)
[2024-05-20] MEDS: NEURONTIN 100 MG PO (09:17)
[2024-05-20] MEDS: NOVOLOG FLEXPEN 6 UNITS SC ×2 (09:36→12:36)
--- NOTE | 2024-05-20 09:40 | W.PN.PUL3 ---
Today's Communication / Plan
-
Patient received tPA/DNase yesterday x2 through chest tube. This AM he was not interested in continuing this treatment and is instead eager to go home --> he changed his mind and will get 2 more lytic treatments today
Check CT chest tomorrow
Ultimately depending on continued left-sided pleural fluid reaccumulation, he may be a candidate for Pleurx
CT surgery evaluation - pt not a candidate for VATS + decortication
PT/OT as I feel that physical deconditioning is a large contributor to his dyspnea as his pleural effusions are small in size - PT rec'd home health
HD as per nephrology
Pulmonary service will continue to follow along while he remains hospitalized and will also arrange for outpatient follow-up s/p discharge
Assessment
-
Patient is a 74 year old M with history of ESRD on HD (TTS), recurrent left pleural effusion s/p numerous thoracentesis, chronic HFrEF and recent admission (05/05/24-05/09/24), presenting to ER for progressive SOB, orthopnea. CXR shows recurrent
left moderate pleural effusion, potentially complex. Prior taps demonstrating transudative cell count with negative culture/cytology. We are consulted for eval.
Impression:
Recurrent L pleural effusion-complex
s/p IR L thora 04/22/24- Successful ultrasound-guided thoracentesis, yielding 100 cc of serosanguineous pleural fluid
08/19/23- L thoracentesis, 1250 cc of clear reese pleural fluid.
07/22/23- L thora - 1250 cc of light reese pleural fluid
CAD with a history of stent-preoperative EF 20-25%
Status post CABG x5-GARZA-LAD/LAD, AO SVG-OM/circumflex, AO SVG-RCA, MAZE and left atrial clip- 05/02/2023 Dr Reyes
Status post recent CHF-reduced EF requiring BiPAP
Ischemic cardiomyopathy-EF 25%
Hypertensive emergency
Paroxysmal atrial fibrillation
Anemia-hemoglobin 9.3
Thrombocytopenia-platelet count 95
Chronic renal failure
Physical deconditioning
Conditions present prior to admission:
Hypertension.
Hyperlipidemia.
Diabetes.
CAD.
Atrial fibrillation.
CHF-EF 25%.
CVA/TIA-2010.
End-stage renal disease on hemodialysis.
Anemia of chronic disease
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
Right wrist AV fistula.
Plan/recommendations
At this time, patient appears to be comfortable
Pleural fluid relatively benign, LDH with discordant exudate effusion
pH normal. Not consistent with empyema
Pleural fluid cultures show NGTD
Denies pulmonary symptoms
No prior history of lung disease is noted
He does have recurrent pleural effusion since Jul 2023
Thora results in past reviewed in detail:
07/22/23- pH 7.5, wbc 161, glu 221, tp <2.0, ldh 102, culture neg, cyto negative --transudative
04/22/24- wbc 273, ldh 134, culture neg
Chest tube placed per IR on 05/15/2024
- 90cc output in 24 hrs from 05/17 - 05/18/2024
- Ct chest obtained on AM of 05/18/2024 showed persistent LLL pleural effusion with hydropneumothorax, similar to prior CT chest on 05/14/2024. Believe that prior instrumentation from thora created a pneumothorax ex vacuo from trapped lung
physiology. He also has a right pleural effusion. CT surgery consulted to evaluate for VATS with decortication and he is not a surgical candidate
- tPA/dornase was recommended and he obtained his first 2 doses on 05/19 --> to receive next 2 doses today as pt agrees to this now
- I will give him a 4th dose tonight, with instructions to RN to clamp chest tube X 2 hours before reapplying to suction at -20 cmH2O
- Will obtain CT chest tomorrow AM, and from there decide if any additional lytic treatments are necessary
Currently he is off antibiotics
Follow cultures
ECHO results from October 2023 reviewed-- 25 to 30% with global hypokinesis
Chronic HF history noted
on ESRD, volume removal via HD
Perhaps he can optimize his HD sessions with more ultrafiltration to see if this helps limit reaccumulation into the pleural space
Renal following
Will need outpatient pulmonary evaluation in our office for PFTs and 6MWT
Reviewed with patient and at bedside and all questions were answered
I discussed the patient's case with the as well as daughter, Yasmeen, and all questions were answered today.
Pulmonary service will continue to follow along while he remains hospitalized
Diagnostic Data
CXR 05/13/24- IMPRESSION: 1). There is moderate-sized multilocular fluid collection with multiple air fluid levels at the left lung base. This may be sterile or infected collection and is increased in size when compared with the prior study 2).
There is small right pleural effusion, new when compared with the prior study 3). There is mild cardiomegaly.
04/22/24- Decrease in size of left pleural effusion compatible with history of thoracentesis. No evidence for significant pneumothorax.
Chest x-ray 05/02/2023-moderate left lung atelectasis at the base
CT chest 04/27/2023-severe coronary artery calcifications, trace right pleural effusion, chronic pancreatitis
ECHO 04/23/2023: EF 25 to 30%, global hypokinesis with regional variation, MAC, moderate MR, trace TR, PAP 35 mmHg
Cardiac catheterization 04/25/2023-multivessel CAD
Reports and relevant images were personally reviewed.
Total time spent today was 36 minutes for this encounter. Time includes reviewing laboratory test/imaging results, reviewing pertinent medical records, obtaining and reviewing medical history, performing an appropriate exam, ordering medications,
tests and procedures. Time also includes documentation of this encounter, coordinating patient care and communicating with other healthcare professionals. Total time does not include separately billed tests performed on this date of service.
Subjective Data
-
Date of Service:
Date of Service: May 20, 2024
Chief Complaint: Pulmonary Follow Up
Subjective:
Pt seen and evaluated this AM. Output from last 24 hrs from chest tube is 860cc. CXR shows stable left lower lobe effusion. He is eager to go home. He has no shortness of breath with exertion, although still has generalized weakness. Has some
left-sided chest pain with the chest tubes located. Denies fevers, chills, nausea, diarrhea, headache.
Review of Systems
General: Other (Negative unless mentioned above)
Objective Data
Data Reviewed
Vital Signs / I&O / Oxygen:
Vital Signs
Temp Pulse Resp BP Pulse Ox
97.7 F 72 16 111/67 100
05/20/24 08:24 05/20/24 09:16 05/20/24 08:24 05/20/24 09:16 05/20/24 08:24
Intake and Output
05/19/24 05/20/24 05/21/24
06:59 06:59 06:59
Intake Total 1280 / 1280 960 / 960
Output Total 403 / 403 860 / 860
Balance 877 / 877 100 / 100
SaO2 100
Nasal Cannula flow liters per 2
minute
Physical Exam
General: Respiratory Distress (negative), Comfortable and Other (NAD)
HEENT: Normocephalic and Anicteric
Cardiovascular: S1-S2, Murmur (n), Rub (n) and Peripheral Edema (negative)
Respiratory: Wheeze (negative), Crackles (Left lower lobe-left middle lung region), Rhonchi (Left lower lobe-left middle lung region), Accessory Resp Muscle Use (negative), Chest Tube (No airleak seen) and Other (Diminished breath sounds at left
base)
GI: Soft, Non Distended, Non Tender and Normal Bowel Sounds
Neurology: AO x 3 and Tremors (negative)
Skin: Warm, Dry, Good Color and Other (Distal RUE AVF with+ thrill, +pulsation and +bruit)
Labs/Micro/Reports
Lab Data
05/19/24 08:26
05/19/24 08:26
Microbiology
05/15/24 16:03 Pleural Fluid Body Fluid Culture - Final
No Growth After 72 Hours
05/15/24 16:03 Pleural Fluid Gram Stain - Final
--- NOTE | 2024-05-20 11:08 | W.PN.NEPH.PH ---
Today's Communication / Plan
-
HD tomorrow
Assessment/Plan
-
Impression:
Recurrent left pleural effusion
ESRD TTS [facility]
Hypertension
Hyperphosphatemia
Paroxysmal atrial fibrillation
Insulin requiring diabetes
Ischemic cardiomyopathy
DM 2 with hyperglycemia
Diabetic peripheral neuropathy
Hyperlipidemia -on atorvastatin.
History of stroke
Plan:
HD tomorrow, orders provided
strict renal diet and FR
chest tube management per pulmonary
-
-
Date of Service: May 20, 2024
CC / HPI / ROS
-
Chief Complaint:
ESRD
History of Present Illness:
no SOB/on Room air
tolerated HD yesterday
BP stable
chest tube in place left s/p tPA 05/19
Review of Systems:
no CP/SOB
Labs
-
Labs:
WBC 5.8 10^3/uL (4.8-10.8) 05/14/24 07:08
RBC 4.15 10^6/uL (4.70-6.10) L 05/14/24 07:08
Hgb 10.6 g/dL (13.0-18.0) L 05/19/24 08:26
Hct 32.5 % (39.0-52.0) L 05/19/24 08:26
Plt Count 150 10^3/uL (130-400) D 05/14/24 07:08
Sodium 136 mmol/L (135-145) 05/19/24 08:26
Potassium 3.9 mmol/L (3.5-5.1) 05/19/24 08:26
Chloride 98 mmol/L (98-107) 05/19/24 08:26
Carbon Dioxide 21 mmol/L (22-30) L 05/19/24 08:26
BUN 69 mg/dl (9-20) H 05/14/24 07:08
Creatinine 4.4 mg/dL (0.7-1.3) H* 05/14/24 07:08
eGFR 13.43 05/14/24 07:08
Glucose 260 mg/dl (70-99) H 05/14/24 07:08
Calcium 8.5 mg/dl (8.4-10.2) 05/14/24 07:08
Albumin 3.6 g/dl (3.5-5.0) 05/13/24 18:13
Physical Exam
-
Vital Signs:
Vital Signs
Temp Pulse Resp BP Pulse Ox
97.7 F 72 16 111/67 100
05/20/24 08:24 05/20/24 09:16 05/20/24 08:24 05/20/24 09:16 05/20/24 08:24
Cardiovascular:: Regular rate and rhythm
Respiratory:: Bilateral: Coarse
Lung Excursion:: Normal
Abdomen:: Nontender and Soft
Bowel Sounds:: Normal
Extremity Edema:: None: Bilateral:
[2024-05-20 11:59] LABS: Glucose - Point of Care 268 mg/dl (70-99)
[2024-05-20] MEDS: NOVOLOG FLEXPEN-LOW RESISTANCE 3 UNITS SC (12:37)
--- NOTE | 2024-05-20 12:50 | W.CON.PAL ---
Consultation
-
Date/Time Consultation Requested: 05/19/2024
Date/Time Consultation Performed: 05/20/2024
Requesting Provider: Dr. Martínez
Performing Provider: Dr. Hernández
Reason for Consult: Other (Discuss palliative care)
Primary Diagnosis: ESRD on HD
Related Diagnosis: HFrEF, Left Pleural effusion
Consult Requested By: Patient's Family
Reason for Admission
Illness Course/HPI
Víctor is a 74y/o male with pmhx of ESRD on HD //Sat, HFrEF (25-30%), afib, hx of CVA, DM, neuropathy, who has had multiple hospitalizations in the past month related to dyspnea. found to have left pleural efusion, s/p thoracentesis in april.
recurrent this admisison, workup showing loculated effusion. received tpa injection on 05/19.
Palliative care consult requested by family.
Functional Status
Patient lives with his in a 1 carol home. at his baseline he is independent of his adls. his and family assist with IADLs including med management and driving. his drives to HD. He ambulates with cane or walker.He has been
increasingly weaker over the past month, partially because of tramadol use which has now been stopped. Appetite also improved after tramadol discontinued. Has restless legs and difficulty sleeping at night time.
Patient's goals are to return home.
Goals of Care Discussion
-
Individuals Present for Discussion & Relationship to Patient:
Patient, daughter saul
Patient able to participate in discussion at time of visit: Yes
Patient's Information Preferences: Fully Involved/Able to Participate
Patient Goals
Patient reports his Radhika is is his medical poa, has completed documentation for this. He has 4 children, Saul lives the closest and would be second to assist with medical decision making).
Pain & Symptom Assessment
Badger Symptom Scale 0=none, 10=worst
Pain: 0
Tired: 7
Drowsy: 7
Nausea: 0
-
Overall feeling better. denies dyspnea at rest. feels weak and tired, although this is better than a few weeks ago. appetite is good.
Objective Data
-
Objective Data:
Vital Signs
Temp Pulse Resp BP Pulse Ox
97.7 F 72 16 111/67 100
05/20/24 08:24 05/20/24 09:16 05/20/24 08:24 05/20/24 09:16 05/20/24 08:24
Laboratory Results
05/19/24 08:26
05/19/24 08:26
Total Protein 5.2 g/dl (6.3-8.2) L 05/14/24 00:46
Albumin 3.6 g/dl (3.5-5.0) 05/13/24 18:13
Palliative Performance Scale
Palliative Performance Scale:
PPS Level Ambulation Activity & Evidence of Disease Self Care Intake Conscious Level
100% Full Normal Activity & Work; Full Intake Full
No Evidence of Disease
90% Full Normal Activity & Work; Full Normal Full
Some Evidence of Disease
80% Full Normal Activity with Effort Full Normal or Full
Some Evidence of Disease Reduced
70% Reduced Unable Normal Job/Work Full Normal or Full
Significant Disease Reduced
60% Reduced Unable Hobby/Housework Occasional Normal or Full or Confusion
Significant Disease Assistance Reduced
50% Mainly Sit/Lie Unable to do Any Work Considerable Normal or Full or Confusion
Extensive Disease Assistance Req'd Reduced
40% Mainly in Bed Unable to do Most Activity Mainly Assistance Normal or Full or Drowsy;
Extensive Disease Reduced +/- Confusion
30% Totally Bed Unable to do Any Activity Total Care Normal or Full or Drowsy;
Bound Extensive Disease Reduced +/- Confusion
20% Totally Bed Bound Unable to do Any Activity Total Care Minimal to Full or Drowsy;
Extensive Disease Sips +/- Confusion
10% Totally Bed Bound Unable to do Any Activity Total Care Mouth Care Drowsy or Coma;
Extensive Disease Only +/- Confusion
0%
PPS Score Level:
Palliative Performance Score Response
Palliative Performance Score Response: 50%
Physical Exam
-
General: No Apparent Distress, Comfortable and Other (thin)
Neuro: Awake, Alert and Oriented
Psych: Calm and Intact Judgement/Insight
Assessment / Plan
-
Assessment/Plan:
Patient is accepting of outpatient palliative care services, will schedule visit when patient is discharged.
Goals currently treatment oriented.
Radhika would be medical poa if patient unable to participate.
[2024-05-20] MEDS: PULMOZYME 50 MG INTRAPLEUR ×2 (14:15→19:06)
[2024-05-20] MEDS: PULMOZYME 50 ML INTRAPLEUR ×2 (14:15→19:06)
[2024-05-20] MEDS: CATHFLO/ACTIVASE 50 ML INTRAPLEUR ×2 (14:15→19:07)
[2024-05-20] MEDS: NSS 25 ML INTRAPLEUR ×2 (14:15→19:05)
[2024-05-20] MEDS: CATHFLO/ACTIVASE 50 MG INTRAPLEUR ×2 (14:15→19:07)
--- NOTE | 2024-05-20 14:34 | PN.IRAD.UPD ---
Update Note - IRAD
- -
at 1415, went bedside to instill TPA into patient's left sided chest tube. no complaints from patient and instructed him to turn every 30 minutes. clamped off chest tube and turned off suction. tube to be unclamped and back to suction in two
hours. ap
[2024-05-20 15:32] VITALS: BP 126/65
--- NOTE | 2024-05-20 16:26 | CM ---
CM reviewed chart, Palliative care consulted, patient agreeable to outpatient palliative care upon discharge. Patient for HD tomorrow. CM will continue to follow for all discharge planning needs.
Plan; home with family, outpatient HD, outpatient palliative care
[facility] in [place]
[2024-05-20 16:55] VITALS: BMI 22.2
[2024-05-20 17:04] LABS: Glucose - Point of Care 188 mg/dl (70-99)
[2024-05-20] MEDS: NOVOLOG FLEXPEN 8 UNITS SC (17:16)
--- NOTE | 2024-05-20 19:04 | W.SUR.POST ---
Surgical Immediate Post Op
Note
Date of Procedure: 05/20/2024
Indication: Loculated unilateral left-sided pleural effusion
Performed by: Dr. Camacho
Complications: No immediate complications
Medications used: 10 mg tPA, 5 mg dornase
IVF Flushing used: 30 cc of NS 0.9%
Operative Details: After verbal consent obtained, patient was positioned into recumbent position so that I could access the chest tube. Chest tube was clamped, and sterile technique was employed including: hand washing, sterile gloves, mask and
gown. Chest tube tubing was disconnected so that I could access opening, and normal saline 0.9% was flushed into chest tube without resistance. 10mg of tPA and 5mg of dornase were instilled without incident, and flushed with 10cc of NS 0.9% after
each instillation. Alcohol wipes were used to wipe down the catheter tips and the chest tube tubing site before and after each instillation to maximize sterility. Chest tube was then clamped and is to remain off suction for 120 minutes, at which
point the chest tube should be unclamped and then placed back onto suction at [id number] (unless specified otherwise by provider). Bedside RN assisted with procedure. Patient tolerated procedure without any immediate complications, and I answered
all of his questions.
--- NOTE | 2024-05-20 19:17 | W.PN.HOSP.TC ---
Today's Communication/Plan
-
More tPA/Dornase today
CT Chest tomorrow
Assessment / Plan
Assessment / Plan
Physical Exam
Gen-AAOx3, NAD
HEENT-NC, AT, anicteric, clear oral mm
Neck-supple
CV-reg, no M, +S1/S2
Lungs-clear B/L
Abd-soft, NT, ND
Ext-no edema
Musculoskeletal-no cyanosis
Skin-warm and dry
Neuro-grossly non-focal
Psych-calm, cooperative
Assessment/Plan
Recurrent left pleural effusion -chest tube placed under CT guidance 05/15. Fluid noted to be small but heavily loculated. Bloody fluid obtained, not purulent. pH 7.4. This is the patient's first chest tube. Fluid culture without growth. Gram
stain negative for organisms. Chest CT from 05/18/24: per pulmonary, patient must have rind around his left lower lobe and it is causing partial re-inflation of his LLL. CT surgery consulted to see whether they think patient would benefit from a
VATS with decortication -- but no plans for surgery at this time, especially with his recent Tramadol use. IR consulted for tPA/Dornase (patient got this from both pulm and IR on 05/19 and 05/20) for the collection in the left chest. Continue chest
tube with waterseal, as per cardiothroacic surgery and pulmonary.
ESRD -on dialysis Saturday//Saturday. States he has been compliant with sodium and fluid restriction. However, his weight is above his dry weight, currently 66 kg. Dry weight is 61 kg. Nephrology onboard, dialysis.
Chronic heart failure reduced EF -stable.
Pancytopenia -unclear etiology. White blood cell count and platelet count have recovered. Would follow-up with PCP after discharge.
Essential hypertension -stable.
DM 2 with hyperglycemia -on Lantus 14 units at bedtime, NovoLog sliding scale at home. Continue Insulin. Diabetes DEVELOPER DESIGNER consulted, appreciate their evaluation and recommendations.
Diabetic peripheral neuropathy
Hyperlipidemia -on atorvastatin.
Paroxysmal atrial fibrillation -not on anticoagulation by patient choice. Continue aspirin. Was on amiodarone outpatient??
History of stroke -recent brain MRI 05/06/2024 showed atrophy with chronic microvascular ischemic changes, small chronic lacunar infarct in the right cerebellum and keaton. Seen by neurology at the time and recommendation was for anticoagulation but
patient declined.
Full code
Anticipated Discharge: > 48 hours
Subjective/Interval History
-
Date of Service: May 20, 2024
Patient was seen and examined. He reported no new symptoms. He wants to go home as soon as possible.
Objective Data
-
Vital Signs:
Vital Signs
Temp Pulse Resp BP Pulse Ox
97.9 F 86 14 126/65 97
05/20/24 15:32 05/20/24 15:32 05/20/24 15:32 05/20/24 15:32 05/20/24 15:32
I&O
05/19/24 05/20/24 05/21/24
06:59 06:59 06:59
Intake Total 1280 / 1280 960 / 960
Output Total 403 / 403 860 / 860
Balance 877 / 877 100 / 100
[2024-05-20 20:01] LABS: Hematocrit 33.6 % (39.0-52.0); Hemoglobin 10.8 g/dL (13.0-18.0); Mean Corp Hgb Conc. 32.1 g/dL (33.0-37.0); Mean Corpuscular Hgb 29.3 pg (27.0-31.0); Mean Corpuscular Volume 91.1 fL (80.0-94.0); Mean Platelet Volume 10.7 fL (7.4-10.4); Platelet Count 113 10^3/uL (130-400); Red Blood Cell Count 3.69 10^6/uL (4.70-6.10); White Blood Cell Count 5.7 10^3/uL (4.8-10.8)
[2024-05-20] MEDS: BENADRYL 25 MG IV (20:18)
[2024-05-20] MEDS: LIPITOR 80 MG PO (21:02)
[2024-05-20] MEDS: LANTUS 0.16 UNITS SC (21:03)
[2024-05-20] MEDS: ASPIR LOW (ENTERIC COATED) 81 MG PO (21:03)
[2024-05-20] MEDS: NEURONTIN 200 MG PO (21:03)
[2024-05-20 21:06] LABS: Glucose - Point of Care 214 mg/dl (70-99)
[2024-05-20 23:00] VITALS: BP 110/52
[2024-05-21] MEDS: TYLENOL 650 MG PO ×2 (03:19→19:44)
[2024-05-21 05:12] VITALS: BMI 22.6
[2024-05-21 07:05] VITALS: BP 111/55
[2024-05-21 07:14] LABS: Glucose - Point of Care 495 mg/dl (70-99)
[2024-05-21] MEDS: HEPARIN 500 UNITS IV ×2 (08:10→09:15)
[2024-05-21] MEDS: PHOSLO 667 MG PO ×3 (08:15→18:38)
--- NOTE | 2024-05-21 08:17 | PN.DE.MGMTRT ---
Insulin Management
- -
05/21/2024 Diabetes Management Consult Follow up
Patient admitted 05/13 with recurrent SOB, recurrent L pleural effusion. PMH CAD with stents, HTN, diabetes, renal failure with HD, COPD, paroxysmal afib, r thoracentesis, tramadol dependence. Prior to admission patient taking novolog ss with
meals and lantus 14 units @ hs. A1C 8.9, cr 4.4, eGFR 13.43.
Patient awake alert and oriented, able to discuss diabetes management; currently receiving dialysis.
05/20 Glucose range 169 to 268. HS glucose 214
05/21 Fasting glucose 495. Patients nurse reports that patient ate almost entire shoofly pie and regular coke. Additional insulin administered this AM. I did discuss with patient implications of eating 'extra' foods which would in turn require
insulin dose adjustments. He is almost sheepish and very apologetic.
Will continue hs lantus 16 units and AC novolog 6 units with breakfast and lunch, increase to 8 units with dinner with low corrective insulin. Diet is 1800 calorie.
Discussed changes with patients nurse
Diabetes History
- -
Type of Diabetes: 2 requiring insulin
Pre-Admission Diabetes Regimen
Insulin Pump Settings
IP Diabetes Regimen
05/20/24 05/20/24 05/20/24
11:57 17:03 21:06
POC Glucose 268 H 188 H 214 H
05/21/24
07:11
POC Glucose 495 H*
Patient Education
[2024-05-21] MEDS: FLEXBUMIN 25% FOR HEMODIALYSIS 12.5 GRAMS IV ×2 (08:30→10:30)
[2024-05-21 08:46] LABS: Hemoglobin 9.3 g/dL (13.0-18.0)
[2024-05-21] MEDS: MANNITOL 25% 12.5 GRAMS IV ×2 (09:07→10:37)
[2024-05-21 09:10] LABS: Carbon Dioxide 20 mmol/L (22-30); Chloride 100 mmol/L (98-107); Glucose 515 mg/dl (70-99); Potassium 3.9 mmol/L (3.5-5.1); Sodium 136 mmol/L (135-145)
[2024-05-21] MEDS: NOVOLOG FLEXPEN 6 UNITS SC ×3 (09:39→18:38)
[2024-05-21] MEDS: NOVOLOG vial 8 UNITS SC (09:41)
[2024-05-21] MEDS: NOVOLOG FLEXPEN-LOW RESISTANCE SC (09:48)
--- NOTE | 2024-05-21 09:55 | W.PN.PUL3 ---
Today's Communication / Plan
-
Patient received tPA/DNase x 4 doses so far - will get 5th dose tonight
Once chest tube is draining <150 cc over 24 hours then it will be removed
CT chest shows improved left lower lobe hydropneumothorax
Ultimately depending on continued left-sided pleural fluid reaccumulation, he may be a candidate for Pleurx
CT surgery evaluation - pt not a candidate for VATS + decortication
PT/OT as I feel that physical deconditioning is a large contributor to his dyspnea as his pleural effusions are small in size - PT rec'd home health
HD as per nephrology
Monitor BG with goal >100 and <180
Pulmonary service will continue to follow along while he remains hospitalized and will also arrange for outpatient follow-up s/p discharge
Assessment
-
Patient is a 74 year old M with history of ESRD on HD (TTS), recurrent left pleural effusion s/p numerous thoracentesis, chronic HFrEF and recent admission (05/05/24-05/09/24), presenting to ER for progressive SOB, orthopnea. CXR shows recurrent
left moderate pleural effusion, potentially complex. Prior taps demonstrating transudative cell count with negative culture/cytology. We are consulted for eval.
Impression:
Recurrent L pleural effusion-complex
s/p IR L thora 04/22/24- Successful ultrasound-guided thoracentesis, yielding 100 cc of serosanguineous pleural fluid
08/19/23- L thoracentesis, 1250 cc of clear reese pleural fluid.
07/22/23- L thora - 1250 cc of light reese pleural fluid
CAD with a history of stent-preoperative EF 20-25%
Status post CABG x5-GARZA-LAD/LAD, AO SVG-OM/circumflex, AO SVG-RCA, MAZE and left atrial clip- 05/02/2023 Dr Reyes
Status post recent CHF-reduced EF requiring BiPAP
Ischemic cardiomyopathy-EF 25%
Hypertensive emergency - resolved
Paroxysmal atrial fibrillation now in NSR
Anemia
Thrombocytopenia
Chronic renal failure on iHD
Physical deconditioning
Conditions present prior to admission:
Hypertension.
Hyperlipidemia.
Diabetes.
CAD.
Atrial fibrillation.
CHF-EF 25%.
CVA/TIA-2010.
End-stage renal disease on hemodialysis.
Anemia of chronic disease
Occupational exposure-history of working in [employer] for 17 years-asbestos exposure
Right wrist AV fistula.
Plan/recommendations
At this time, patient appears to be comfortable
Pleural fluid relatively benign, LDH with discordant exudate effusion
pH normal. Not consistent with empyema
Pleural fluid cultures show NGTD
Denies pulmonary symptoms
No prior history of lung disease is noted
He does have recurrent pleural effusion since Jul 2023
Thora results in past reviewed in detail:
07/22/23- pH 7.5, wbc 161, glu 221, tp <2.0, ldh 102, culture neg, cyto negative --transudative
04/22/24- wbc 273, ldh 134, culture neg
Chest tube placed per IR on 05/15/2024
- 90cc output in 24 hrs from 05/17 - 05/18/2024
- Ct chest obtained on AM of 05/18/2024 showed persistent LLL pleural effusion with hydropneumothorax, similar to prior CT chest on 05/14/2024. Believe that prior instrumentation from thora created a pneumothorax ex vacuo from trapped lung
physiology. He also has a right pleural effusion. CT surgery consulted to evaluate for VATS with decortication and he is not a surgical candidate
- tPA/dornase was recommended and he obtained his first 2 doses on 05/19 --> received his 3rd and 4th doses on 05/20, and will receive additional dose tonight (after HD)
- I will give him his fifth dose tonight, then nurse to keep chest tube off suction for 2 hours before reapplying to -20 cmH2O
- CT chest obtained shows persistent left lower lobe hydropneumothorax but it is reduced in size compared to recent CT chest on 06/07
Currently he is off antibiotics
Follow cultures
ECHO results from October 2023 reviewed-- 25 to 30% with global hypokinesis
Chronic HF history noted
on ESRD, volume removal via HD
Perhaps he can optimize his HD sessions with more ultrafiltration to see if this helps limit reaccumulation into the pleural space
Renal following
Will need outpatient pulmonary evaluation in our office for PFTs and 6MWT
Reviewed with patient and at bedside and all questions were answered
I discussed the patient's case with the as well as daughter, Yasmeen, and all questions were answered today.
Pulmonary service will continue to follow along while he remains hospitalized
Diagnostic Data
CXR 05/13/24- IMPRESSION: 1). There is moderate-sized multilocular fluid collection with multiple air fluid levels at the left lung base. This may be sterile or infected collection and is increased in size when compared with the prior study 2).
There is small right pleural effusion, new when compared with the prior study 3). There is mild cardiomegaly.
04/22/24- Decrease in size of left pleural effusion compatible with history of thoracentesis. No evidence for significant pneumothorax.
Chest x-ray 05/02/2023-moderate left lung atelectasis at the base
CT chest 04/27/2023-severe coronary artery calcifications, trace right pleural effusion, chronic pancreatitis
ECHO 04/23/2023: EF 25 to 30%, global hypokinesis with regional variation, MAC, moderate MR, trace TR, PAP 35 mmHg
Cardiac catheterization 04/25/2023-multivessel CAD
Reports and relevant images were personally reviewed.
Total time spent today was 38 minutes for this encounter. Time includes reviewing laboratory test/imaging results, reviewing pertinent medical records, obtaining and reviewing medical history, performing an appropriate exam, ordering medications,
tests and procedures. Time also includes documentation of this encounter, coordinating patient care and communicating with other healthcare professionals. Total time does not include separately billed tests performed on this date of service.
Subjective Data
-
Date of Service:
Date of Service: May 21, 2024
Chief Complaint: Pulmonary Follow Up
Subjective:
Patient was seen and evaluated today at bedside. Eager to go home. Chest tube has drained about 1300 cc since [address] chest obtained today shows decreasing volume of left sided hydropneumothorax. Also a small right-sided pleural
effusion. He does have subcutaneous emphysema seen on left the left lateral chest wall. He still feels generalized weakness but denies SOB at rest, chest pain, CARLSON, abdominal pain, fevers or chills. He ate pie that his daughter brought in and his
sugars increased, and then after getting insulin his sugars dropped to 58 which edgar back to 142 after hypoglycemia protocol was followed.
Review of Systems
General: Other (Negative unless mentioned above)
Objective Data
Data Reviewed
Vital Signs / I&O / Oxygen:
Vital Signs
Temp Pulse Resp BP Pulse Ox
97.8 F 84 20 111/55 97
05/21/24 07:05 05/21/24 07:05 05/21/24 07:05 05/21/24 07:05 05/21/24 07:05
Intake and Output
05/20/24 05/21/24 05/22/24
06:59 06:59 06:59
Intake Total 960 / 960 480 / 480
Output Total 860 / 860 425 / 425
Balance 100 / 100 480 / 480 -425 / -425
SaO2 97
Nasal Cannula flow liters per 2
minute
Physical Exam
General: Respiratory Distress (negative), Comfortable and Other (NAD)
HEENT: Normocephalic and Anicteric
Cardiovascular: S1-S2, Murmur (n), Rub (n) and Peripheral Edema (negative)
Respiratory: Wheeze (negative), Crackles (Left lower lobe-left middle lung region), Rhonchi (Left lower lobe-left middle lung region), Accessory Resp Muscle Use (negative), Chest Tube (No airleak seen) and Other (Diminished breath sounds at left
base)
GI: Soft, Non Distended, Non Tender and Normal Bowel Sounds
Neurology: AO x 3 and Tremors (negative)
Skin: Warm, Dry, Good Color and Other (Distal RUE AVF with+ thrill, +pulsation and +bruit)
Labs/Micro/Reports
Lab Data
05/21/24 08:17
05/21/24 08:17
Microbiology
05/15/24 16:03 Pleural Fluid Body Fluid Culture - Final
No Growth After 72 Hours
05/15/24 16:03 Pleural Fluid Gram Stain - Final
--- NOTE | 2024-05-21 09:58 | W.PN.NEPH.HD ---
Assessment
-
Seen on HD. no complaints. VSS, low. access ok
BS high, counselled on diet
Progress Note - Hemodialysis
-
Date of Service: May 21, 2024
Duration: 30 minutes and 3 hours
Potassium Bath: 2
Calcium Bath: 2.5
Opti-Dialyzer: 160
Ultrafiltration: Other (2kg)
Blood Flow: 400
Dialysate Flow: 600
Heparin: 500x2
EPO: 6000 units
[2024-05-21] MEDS: RETACRIT 6000 UNITS IV (10:20)
[2024-05-21 11:33] LABS: Glucose - Point of Care 115 mg/dl (70-99)
[2024-05-21] MEDS: COREG 3.125 MG PO ×2 (12:40→19:37)
[2024-05-21] MEDS: NEURONTIN 100 MG PO (12:40)
[2024-05-21 13:30] LABS: Glucose - Point of Care 58 mg/dl (70-99)
[2024-05-21] MEDS: DEXTROSE 50% SYRINGE 12.5 GRAMS IV ×2 (13:33→15:14)
[2024-05-21 13:52] LABS: Glucose - Point of Care 142 mg/dl (70-99)
[2024-05-21 15:03] LABS: Glucose - Point of Care 85 mg/dl (70-99)
[2024-05-21 15:40] VITALS: BP 108/53
--- NOTE | 2024-05-21 15:56 | CM ---
Patient and spouse, Radhika, seen bedside. Confirmed patient is current with VN. CM will continue to follow for all discharge planning needs.
Plan; home with family, VIJAYAN, outpatient HD, outpatient palliative care
[facility] in [place]
[2024-05-21 15:59] LABS: Glucose - Point of Care 143 mg/dl (70-99)
--- NOTE | 2024-05-21 16:03 | W.PN.UPDATE ---
Update Note
Progress Note Update
CT scan reviewed with Dr. Mazariegos and images look to be improving. Can DC CT once outputs decrease. CT surgery will sign off.
[2024-05-21 17:17] LABS: Glucose - Point of Care 154 mg/dl (70-99)
--- NOTE | 2024-05-21 17:35 | W.PN.HOSP.TC ---
Today's Communication/Plan
-
Hypoglycemia -- RESOLVED - Insulin will be adjusted by Diabetes Nurse Practitioner based on pre-dinner glucose
Appreciate Diabetes WINDING RACK OPERATOR
CT Chest noted, appreciate CTS and Pulm
Assessment / Plan
Assessment / Plan
Physical Exam
Gen-AAOx3, NAD
HEENT-NC, AT, anicteric, clear oral mm
Neck-supple
CV-reg, no M, +S1/S2
Lungs-clear B/L
Abd-soft, NT, ND
Ext-no edema
Musculoskeletal-no cyanosis
Skin-warm and dry
Neuro-grossly non-focal
Psych-calm, cooperative
Assessment/Plan
Recurrent left pleural effusion -chest tube placed under CT guidance 05/15. Fluid noted to be small but heavily loculated. Bloody fluid obtained, not purulent. pH 7.4. This is the patient's first chest tube. Fluid culture without growth. Gram
stain negative for organisms. Chest CT from 05/18/24: per pulmonary, patient must have rind around his left lower lobe and it is causing partial re-inflation of his LLL. CT surgery consulted to see whether they think patient would benefit from a
VATS with decortication -- but no plans for surgery at this time, especially with his recent Tramadol use. IR consulted for tPA/Dornase (patient got this from both pulm and IR on 05/19 and 05/20) for the collection in the left chest. Continue chest
tube with waterseal, as per cardiothroacic surgery and pulmonary. Repeat CT Chest from 05/21/24 noted.
ESRD -on dialysis Saturday//Saturday. States he has been compliant with sodium and fluid restriction. However, his weight is above his dry weight, currently 66 kg. Dry weight is 61 kg. Nephrology onboard, dialysis.
Chronic heart failure reduced EF -stable.
Pancytopenia -unclear etiology. White blood cell count and platelet count have recovered. Would follow-up with PCP after discharge.
Essential hypertension -stable.
DM 2 with hyperglycemia -on Lantus 14 units at bedtime, NovoLog sliding scale at home. Continue Insulin. Diabetes WINDING RACK OPERATOR consulted, appreciate their evaluation and recommendations.
Diabetic peripheral neuropathy
Hyperlipidemia -on atorvastatin.
Paroxysmal atrial fibrillation -not on anticoagulation by patient choice. Continue aspirin. Was on amiodarone outpatient??
History of stroke -recent brain MRI 05/06/2024 showed atrophy with chronic microvascular ischemic changes, small chronic lacunar infarct in the right cerebellum and keaton. Seen by neurology at the time and recommendation was for anticoagulation but
patient declined.
Full code
Anticipated Discharge: 24 - 48 hours
Subjective/Interval History
-
Date of Service: May 21, 2024
Patient was seen and examined. He was getting dialysis when he was seen and denied any complaints.
Objective Data
-
Labs:
Laboratory Results
05/21/24 05/21/24 05/21/24
08:17 08:17 08:17
Hgb 9.3 L
Hct 29.0 L
Sodium Cancelled 136
Potassium Cancelled 3.9
Chloride Cancelled
Carbon Dioxide
Glucose
05/21/24 05/21/24
08:17 08:17
Hgb
Hct
Sodium
Potassium
Chloride 100
Carbon Dioxide Cancelled 20 L
Glucose 515 H*
Vital Signs:
Vital Signs
Temp Pulse Resp BP Pulse Ox
97.1 F 81 18 108/53 100
05/21/24 15:40 05/21/24 15:40 05/21/24 15:40 05/21/24 15:40 05/21/24 15:40
I&O
05/20/24 05/21/24 05/22/24
06:59 06:59 06:59
Intake Total 960 / 960 480 / 480 300 / 300
Output Total 860 / 860 425 / 425
Balance 100 / 100 480 / 480 -125 / -125
--- NOTE | 2024-05-21 18:00 | W.SUR.POST ---
Surgical Immediate Post Op
Note
Date of Procedure: 05/21/2024 (5th session)
Indication: Loculated unilateral left-sided pleural effusion
Performed by: Dr. Cmaacho
Complications: No immediate complications
Medications used: 10 mg tPA, 5 mg dornase
IVF Flushing used: 30 cc of NS 0.9%
Operative Details: After verbal consent obtained, patient was positioned into recumbent position so that I could access the chest tube. Chest tube was clamped, and sterile technique was employed including: hand washing, sterile gloves, mask and
gown. Chest tube tubing was disconnected so that I could access opening, and normal saline 0.9% was flushed into chest tube without resistance. 10mg of tPA and 5mg of dornase were instilled without incident, and flushed with 10cc of NS 0.9% after
each instillation. Alcohol wipes were used to wipe down the catheter tips and the chest tube tubing site before and after each instillation to maximize sterility. Chest tube was then clamped and is to remain off suction for 120 minutes, at which
point the chest tube should be unclamped and then placed back onto suction at -[id number] (unless specified otherwise by provider). Bedside RN assisted with procedure. Patient tolerated procedure without any immediate complications, and I answered
all of his questions.
[2024-05-21 18:21] LABS: Glucose - Point of Care 188 mg/dl (70-99)
[2024-05-21] MEDS: CATHFLO/ACTIVASE INTRAPLEUR ×2 (18:33)
[2024-05-21] MEDS: NSS INTRAPLEUR (18:34)
[2024-05-21] MEDS: PULMOZYME INTRAPLEUR ×2 (18:34)
[2024-05-21] MEDS: NOVOLOG FLEXPEN SC (18:34)
[2024-05-21] MEDS: CATHFLO/ACTIVASE 50 ML INTRAPLEUR (18:35)
[2024-05-21] MEDS: CATHFLO/ACTIVASE 50 MG INTRAPLEUR (18:35)
[2024-05-21] MEDS: NSS 25 ML INTRAPLEUR (18:37)
[2024-05-21] MEDS: PULMOZYME 50 MG INTRAPLEUR (18:37)
[2024-05-21] MEDS: PULMOZYME 50 ML INTRAPLEUR (18:37)
[2024-05-21 19:19] LABS: Glucose - Point of Care 227 mg/dl (70-99)
[2024-05-21] MEDS: BENADRYL 25 MG IV (20:17)
[2024-05-21 20:22] LABS: Glucose - Point of Care 221 mg/dl (70-99)
[2024-05-21] MEDS: NEURONTIN 200 MG PO (21:27)
[2024-05-21] MEDS: ASPIR LOW (ENTERIC COATED) 81 MG PO (21:28)
[2024-05-21] MEDS: LANTUS 0.16 UNITS SC (21:28)
[2024-05-21] MEDS: LIPITOR 80 MG PO (21:28)
[2024-05-21 21:31] LABS: Glucose - Point of Care 229 mg/dl (70-99)
[2024-05-21 22:41] LABS: Blood Urea Nitrogen 33 mg/dl (9-20); Calcium 8.2 mg/dl (8.4-10.2); Carbon Dioxide 28 mmol/L (22-30); Chloride 98 mmol/L (98-107); Estimated Creatinine Clearance 24 ml/min; Glucose 205 mg/dl (70-99); Potassium 3.7 mmol/L (3.5-5.1); Sodium 138 mmol/L (135-145); eGFR 26.47
[2024-05-21 23:25] VITALS: BP 122/63
[2024-05-22 04:12] LABS: Glucose - Point of Care 111 mg/dl (70-99)
[2024-05-22 06:00] VITALS: BMI 22.1
[2024-05-22 07:00] VITALS: BP 103/55
[2024-05-22 07:16] LABS: Glucose - Point of Care 88 mg/dl (70-99)
--- NOTE | 2024-05-22 07:31 | PN.DE.MGMTRT ---
Insulin Management
- -
05/22/2024 Diabetes Management F/U:
Patient admitted 05/13 with recurrent SOB, recurrent L pleural effusion. PMH CAD with stents, HTN, diabetes, renal failure with HD, COPD, paroxysmal A-Fib, r thoracentesis, tramadol dependence. Prior to admission patient taking NovoLog ss with
meals and Lantus 14 units @ hs. A1C 8.9, cr 4.4, eGFR 13.43.
Patient awake alert and oriented, able to discuss diabetes management.
Noted for an episode of Hypoglycemia as low as 58 yesterday during HD treatment, improved after txt. no further episodes of hypoglycemia
HS glucose was 229, FBG 88 this AM. His POC performed by me at the bedside was 222 right after breakfast. Pt reports that he ate all his breakfast, he is on 1800 freddie diet.
Will continue HS Lantus 16 units, AC NovoLog 6 units with breakfast/lunch, and 8 units with dinner with low corrective insulin.
Discussed plan of care with patients nurse and asked to be notified about lunch time blood sugar, will adjust insulin dose if needed
Diabetes History
- -
Type of Diabetes: 2 requiring insulin
Pre-Admission Diabetes Regimen
05/21/24
22:18
Creatinine 2.5 H
Insulin Pump Settings
IP Diabetes Regimen
05/21/24 05/21/24 05/21/24
08:17 11:31 13:23
Glucose 515 H*
POC Glucose 115 H 58 L
05/21/24 05/21/24 05/21/24
13:49 15:02 15:57
Glucose
POC Glucose 142 H 85 143 H
05/21/24 05/21/24 05/21/24
17:16 18:19 19:17
Glucose
POC Glucose 154 H 188 H 227 H
05/21/24 05/21/24 05/21/24
20:20 21:30 22:18
Glucose 205 H
POC Glucose 221 H 229 H
05/22/24 05/22/24
04:11 07:15
Glucose
POC Glucose 111 H 88
Meal type: Lunch
Meal type: Breakfast
Amount consumed: 100%
Amount consumed: 100%
Patient Education
[2024-05-22] MEDS: NOVOLOG FLEXPEN SC ×2 (07:55→13:48)
[2024-05-22] MEDS: NEURONTIN 100 MG PO (07:59)
[2024-05-22] MEDS: PHOSLO 667 MG PO ×2 (07:59→13:45)
--- NOTE | 2024-05-22 08:03 | W.PN.HOSP.TC ---
Today's Communication/Plan
-
Discharge today
Assessment / Plan
Assessment / Plan
Physical Exam
Gen-AAOx3, NAD
HEENT-NC, AT, anicteric, clear oral mm
Neck-supple
CV-reg, no M, +S1/S2
Lungs-crackles, rhonchi and decreased breath sounds
Abd-soft, NT, ND
Ext-no edema
Musculoskeletal-no cyanosis
Skin-warm and dry
Neuro-grossly non-focal
Psych-calm, cooperative
Assessment/Plan
Recurrent left pleural effusion - chest tube placed under CT guidance 05/15. Fluid noted to be small but heavily loculated. Bloody fluid obtained, not purulent. pH 7.4. This is the patient's first chest tube. Fluid culture without growth. Gram
stain negative for organisms. Chest CT from 05/18/24: per pulmonary, patient must have rind around his left lower lobe and it is causing partial re-inflation of his LLL. CT surgery consulted to see whether they think patient would benefit from a
VATS with decortication -- but no plans for surgery at this time, especially with his recent Tramadol use. IR consulted for tPA/Dornase (patient got this from both pulmonary and IR on 05/19 and 05/20) for the collection in the left chest. Repeat CT
Chest from 05/21/24 noted. Chest tube okay to remove today, as per pulmonary. Per pulmonary, patient still has a small loculated pleural effusion, but it is small, should not be causing him to be SOB, and the chest tube is not connected to this
effusion so it should be removed. Patient would ideally need another chest tube to drain that small collection, or a VATS, but patient does not want another chest tube now and he is not a surgical candidate. Patient needs close outpatient follow-up
with pulmonary. Discussed with pulmonary and patient does not another CXR after chest tube is removed.
ESRD -on dialysis Saturday//Saturday. States he has been compliant with sodium and fluid restriction. However, his weight is above his dry weight, currently 66 kg. Dry weight is 61 kg. Nephrology onboard, dialysis.
Chronic heart failure reduced EF -stable.
Pancytopenia - WBC Count and Platelets have recovered. Would follow-up with nephrology after discharge for anemia.
Essential hypertension - stable.
DM 2 with hyperglycemia - continue home Insulin regimen, I spoke to patient's on May 22, 2024, and she is very well aware of when to give Insulin and how much, and to not give any Insulin prior to dialysis.
Diabetic peripheral neuropathy
Hyperlipidemia -on atorvastatin.
Paroxysmal atrial fibrillation -not on anticoagulation by patient choice. Continue aspirin. Was on amiodarone outpatient?? Follow-up with outpatient cardiology.
History of stroke -recent brain MRI 05/06/2024 showed atrophy with chronic microvascular ischemic changes, small chronic lacunar infarct in the right cerebellum and keaton. Seen by neurology at the time and recommendation was for anticoagulation but
patient declined.
Full code
More than 30 minutes spent in discharge including
Final examination of the patient
Summarizing hospital stay
Instructions for continuing care to all relevant caregivers
Preparation of discharge records, prescriptions, and referral forms
Total time spent (in minutes): 45
Anticipated Discharge: Today
Subjective/Interval History
-
Date of Service: May 22, 2024
Patient was seen and examined. He denied any new symptoms or complaints.
Objective Data
-
Labs:
Laboratory Results
05/21/24
22:18
Sodium 138
Potassium 3.7
Chloride 98
Carbon Dioxide 28
BUN 33 H
Creatinine 2.5 H
Glucose 205 H
Calcium 8.2 L
Vital Signs:
Vital Signs
Temp Pulse Resp BP Pulse Ox
98.6 F 85 18 122/63 98
05/21/24 23:25 05/21/24 23:25 05/21/24 23:25 05/21/24 23:25 05/21/24 23:25
I&O
05/21/24 05/22/24 05/23/24
06:59 06:59 06:59
Intake Total 480 / 480 540 / 540
Output Total 975 / 975
Balance 480 / 480 -435 / -435
[2024-05-22 08:30] LABS: Glucose - Point of Care 222 mg/dl (70-99)
[2024-05-22] MEDS: NOVOLOG FLEXPEN 6 UNITS SC (08:34)
--- NOTE | 2024-05-22 09:40 | W.PN.PUL3 ---
Today's Communication / Plan
-
Patient received tPA/DNase x 5 doses, last dose last night
Chest tube output is slowing down now and he feels well, with CT chest imaging from yesterday showing where chest tube is located there is minimal pleural fluid remaining to drain; he does have a loculated LLL pleural effusion but it is more
posterior�superior --> I will remove his chest tube now
Ultimately depending on continued left-sided pleural fluid reaccumulation, he may be a candidate for Pleurx
s/p CT surgery evaluation - pt not a candidate for VATS + decortication
PT/OT as I feel that physical deconditioning is a large contributor to his dyspnea as his pleural effusions are small in size - PT rec'd home health
HD as per nephrology
Monitor BG with goal >100 and <180
Chest tube to be removed by me, and then he is cleared to be discharged from a pulmonary perspective. No additional pulmonary recommendations at this time. Pulmonary service will now sign off. Please reconsult if there are any additional
questions/concerns, or if patient's respiratory status deteriorates.
Assessment
-
Patient is a 74 year old M with history of ESRD on HD (TTS), recurrent left pleural effusion s/p numerous thoracentesis, chronic HFrEF and recent admission (05/05/24-05/09/24), presenting to ER for progressive SOB, orthopnea. CXR shows recurrent
left moderate pleural effusion, potentially complex. Prior taps demonstrating transudative cell count with negative culture/cytology. We are consulted for eval.
Impression:
Recurrent L pleural effusion-complex
s/p IR L thora 04/22/24- Successful ultrasound-guided thoracentesis, yielding 100 cc of serosanguineous pleural fluid
08/19/23- L thoracentesis, 1250 cc of clear reese pleural fluid.
07/22/23- L thora - 1250 cc of light reese pleural fluid
LLL pleural effusion s/p chest tube via IR, placed on 05/15/2024 c/b subcutaneous emphysema along left lateral chest wall
CAD with a history of stent-preoperative EF 20-25%
Status post CABG x5-GARZA-LAD/LAD, AO SVG-OM/circumflex, AO SVG-RCA, MAZE and left atrial clip- 05/02/2023 Dr Reyes
Status post recent CHF-reduced EF requiring BiPAP
Ischemic cardiomyopathy-EF 25%
Hypertensive emergency - resolved
Paroxysmal atrial fibrillation now in NSR
Anemia
Thrombocytopenia � improving
Hypoglycemia
Chronic renal failure on iHD
Physical deconditioning
Conditions present prior to admission:
Hypertension.
Hyperlipidemia.
Diabetes.
CAD.
Atrial fibrillation.
CHF-EF 25%.
CVA/TIA-2010.
End-stage renal disease on hemodialysis.
Anemia of chronic disease
Occupational exposure-history of working in [employer] for 17 years-asbestos exposure
Right wrist AV fistula.
Plan/recommendations
At this time, patient continues to be comfortable
Pleural fluid relatively benign, LDH 274 (likely pseudo-exudative effusion)
pH normal. Not consistent with empyema
Pleural fluid cultures show NGTD
Denies pulmonary symptoms although with exertion he does endorse generalized fatigue/weakness/SOB
No prior history of lung disease is noted
He does have recurrent pleural effusion since Jul 2023
Thora results in past reviewed in detail:
07/22/23- pH 7.5, wbc 161, glu 221, tp <2.0, ldh 102, culture neg, cyto negative --transudative
04/22/24- wbc 273, ldh 134, culture neg
Chest tube placed per IR on 05/15/2024
- 90cc output in 24 hrs from 05/17 - 05/18/2024
- 900 cc output from 7 AM on 05/21 through 7 AM this morning
- Only 160 cc output since 6:30 AM today
- CT chest obtained on AM of 05/18/2024 showed persistent LLL pleural effusion with hydropneumothorax, similar to prior CT chest on 05/14/2024. Believe that prior instrumentation from thora created a pneumothorax ex vacuo from trapped lung
physiology. He also has a right pleural effusion. CT surgery consulted to evaluate for VATS with decortication and he is not a surgical candidate
- tPA/dornase was recommended and he obtained his first 2 doses on 05/19 --> received his 3rd and 4th doses on 05/20, and will receive additional dose tonight (after HD)
- Received his fifth dose yesterday evening, and chest tube has been on negative suction at -20 cmH2O since that time (after chest tube was clamped x 2 hours)
- CT chest obtained on 05/21/2024 shows persistent left lower lobe hydropneumothorax but it is reduced in size compared to recent CT chest on 05/18/24
- I personally reviewed the CT chest from yesterday, and where the chest tube is located there is minimal pleural fluid there, and instead there are air bubbles with atelectatic parenchyma and minimal fluid. He has a more posterior�superior
loculated pleural effusion but this chest tube is not connecting to that area. No additional need for this chest tube to be in place to removed today
Currently he is off antibiotics
Follow cultures (NGTD)
ECHO results from October 2023 reviewed-- 25 to 30% with global hypokinesis
Chronic HF history noted
on ESRD, volume removal via HD
Perhaps he can optimize his HD sessions with more ultrafiltration to see if this helps limit reaccumulation into the pleural space
Renal following
Will need outpatient pulmonary evaluation in our office for PFTs and 6MWT
Reviewed with patient and at bedside and all questions were answered
I discussed the patient's case with the as well as daughter, Yasmeen, and all questions were answered today.
Chest tube to be removed by me, and then he is cleared to be discharged from a pulmonary perspective. No additional pulmonary recommendations at this time. Pulmonary service will now sign off. Thank you for allowing us to be involved in the care
of this patient. Please reconsult if there are any additional questions/concerns, or if patient's respiratory status deteriorates.
Diagnostic Data
CXR 05/22/2024:
Left pleural pigtail catheter is present.
Patchy increased opacity involving the left lower hemithorax, without significant interval change from radiograph of May 20, 2024.
Left-sided subcutaneous emphysema.
Small right pleural effusion, stable.
CXR 05/13/24- IMPRESSION: 1). There is moderate-sized multilocular fluid collection with multiple air fluid levels at the left lung base. This may be sterile or infected collection and is increased in size when compared with the prior study 2).
There is small right pleural effusion, new when compared with the prior study 3). There is mild cardiomegaly.
04/22/24- Decrease in size of left pleural effusion compatible with history of thoracentesis. No evidence for significant pneumothorax.
Chest x-ray 05/02/2023-moderate left lung atelectasis at the base
CT chest 04/27/2023-severe coronary artery calcifications, trace right pleural effusion, chronic pancreatitis
CT Chest 05/21/2024:
1. Small complex left basilar pleural collection containing gas and fluid with a chest tube in place. Decreased volume of pleural fluid compared to the chest CT from 05/18/2024.
2. Small right pleural effusion.
3. Increased subcutaneous emphysema along the left lateral chest wall.
ECHO 04/23/2023: EF 25 to 30%, global hypokinesis with regional variation, MAC, moderate MR, trace TR, PAP 35 mmHg
Cardiac catheterization 04/25/2023-multivessel CAD
Reports and relevant images were personally reviewed.
Total time spent today was 41 minutes for this encounter. Time includes reviewing laboratory test/imaging results, reviewing pertinent medical records, obtaining and reviewing medical history, performing an appropriate exam, ordering medications,
tests and procedures. Time also includes documentation of this encounter, coordinating patient care and communicating with other healthcare professionals. Total time does not include separately billed tests performed on this date of service.
Subjective Data
-
Date of Service:
Date of Service: May 22, 2024
Chief Complaint: Pulmonary Follow Up
Subjective:
Patient seen and evaluated today at bedside. He feels well. at bedside. Chest tube has drained 900 cc since 7 AM yesterday, and 160 mL since 6:30 AM today. Fluid remains serosanguineous. He denies chest pain, CARLSON, abdominal pain, nausea,
fevers or chills. CXR this morning is virtually unchanged compared to yesterday.
Review of Systems
General: Other (Negative unless mentioned above)
Objective Data
Data Reviewed
Vital Signs / I&O / Oxygen:
Vital Signs
Temp Pulse Resp BP Pulse Ox
98.1 F 83 20 103/55 100
05/22/24 07:00 05/22/24 07:00 05/22/24 07:00 05/22/24 07:00 05/22/24 07:00
Intake and Output
05/21/24 05/22/24 05/23/24
06:59 06:59 06:59
Intake Total 480 / 480 540 / 540
Output Total 975 / 975
Balance 480 / 480 -435 / -435
SaO2 100
Nasal Cannula flow liters per 2
minute
Physical Exam
General: Respiratory Distress (negative), Comfortable and Other (NAD)
HEENT: Normocephalic, Anicteric and Moist Mucous Membranes
Cardiovascular: S1-S2, Murmur (n), Rub (n) and Peripheral Edema (negative)
Respiratory: Wheeze (negative), Crackles (Left lower lobe-left middle lung region), Rhonchi (Left lower lobe-left middle lung region), Accessory Resp Muscle Use (negative), Chest Tube (No airleak seen) and Other (Diminished breath sounds at left
base)
GI: Soft, Non Distended, Non Tender and Normal Bowel Sounds
Neurology: AO x 3 and Tremors (negative)
Skin: Warm, Dry, Good Color and Other (Distal RUE AVF with+ thrill, +pulsation and +bruit)
[2024-05-22 11:00] VITALS: BP 110/63
--- NOTE | 2024-05-22 11:13 | W.PN.NEPH.PH ---
Today's Communication / Plan
-
Hd tomorrow
titrate up THOMAS given worsening anemia in setting of CT tube (blood)
Assessment/Plan
-
Impression:
Recurrent left pleural effusion
ESRD TTS [facility]
Hypertension
Hyperphosphatemia
Paroxysmal atrial fibrillation
Insulin requiring diabetes
Ischemic cardiomyopathy
DM 2 with hyperglycemia
Diabetic peripheral neuropathy
Hyperlipidemia -on atorvastatin.
History of stroke
Plan:
HD tomorrow, orders provided
strict renal diet and FR
chest tube management per pulmonary
possible discharge later today
-
-
Date of Service: May 22, 2024
CC / HPI / ROS
-
Chief Complaint:
ESRD
History of Present Illness:
no SOB/on Room air
tolerated HD yesterday
BP stable
chest tube in place left s/p tPA 05/19
Review of Systems:
no CP/SOB
CT
Labs
-
Labs:
WBC 5.7 10^3/uL (4.8-10.8) 05/20/24 19:46
RBC 3.69 10^6/uL (4.70-6.10) L 05/20/24 19:46
Hgb 9.3 g/dL (13.0-18.0) L 05/21/24 08:17
Hct 29.0 % (39.0-52.0) L 05/21/24 08:17
Plt Count 113 10^3/uL (130-400) L D 05/20/24 19:46
Sodium 138 mmol/L (135-145) 05/21/24 22:18
Potassium 3.7 mmol/L (3.5-5.1) 05/21/24 22:18
Chloride 98 mmol/L (98-107) 05/21/24 22:18
Carbon Dioxide 28 mmol/L (22-30) 05/21/24 22:18
BUN 33 mg/dl (9-20) H 05/21/24 22:18
Creatinine 2.5 mg/dL (0.7-1.3) H 05/21/24 22:18
eGFR 26.47 05/21/24 22:18
Glucose 205 mg/dl (70-99) H 05/21/24 22:18
Calcium 8.2 mg/dl (8.4-10.2) L 05/21/24 22:18
Albumin 3.6 g/dl (3.5-5.0) 05/13/24 18:13
Physical Exam
-
Vital Signs:
Vital Signs
Temp Pulse Resp BP Pulse Ox
98.1 F 83 20 103/55 100
05/22/24 07:00 05/22/24 07:00 05/22/24 07:00 05/22/24 07:00 05/22/24 07:00
Cardiovascular:: Regular rate and rhythm
Respiratory:: Bilateral: Coarse
Lung Excursion:: Normal
Abdomen:: Nontender and Soft
Bowel Sounds:: Normal
Extremity Edema:: None: Bilateral:
Other Findings::
left CT tube
[2024-05-22 12:05] VITALS: BP 103/54; BP 121/62; PULSE 80; O2SAT 99
[2024-05-22 12:05] LABS: Glucose - Point of Care 86 mg/dl (70-99)
[2024-05-22 12:52] LABS: Hematocrit 29.3 % (39.0-52.0); Hemoglobin 9.2 g/dL (13.0-18.0); Mean Corp Hgb Conc. 31.4 g/dL (33.0-37.0); Mean Corpuscular Hgb 28.8 pg (27.0-31.0); Mean Corpuscular Volume 91.6 fL (80.0-94.0); Platelet Count 130 10^3/uL (130-400); Red Cell Dist. Width 17.9 % (11.5-14.5); White Blood Cell Count 5.6 10^3/uL (4.8-10.8)
--- NOTE | 2024-05-22 13:25 | W.PN.UPDATE ---
Update Note
Progress Note Update
Left-sided chest tube was removed by me without any immediate complications. Chest tube insertion site was cleaned with ChloraPrep, and covered with 4 x 4 gauze + Tegaderm. Patient feels well with no SOB or chest pain at rest. Patient to go home
with supplies to keep area clean and covered at least for 24-48 hours. This was explained in detail to the in layman's terms to her satisfaction. All questions were answered.
[2024-05-22 13:43] LABS: ALT (SGPT) 15 U/L (0-50); AST (SGOT) 20 U/L (17-59); Albumin 3.4 g/dl (3.5-5.0); Alkaline Phosphatase 64 U/L (38-126); Blood Urea Nitrogen 41 mg/dl (9-20); Calcium 8.8 mg/dl (8.4-10.2); Carbon Dioxide 30 mmol/L (22-30); Chloride 97 mmol/L (98-107); Estimated Creatinine Clearance 17 ml/min; Glucose 77 mg/dl (70-99); Magnesium 2.2 mg/dl (1.6-2.3); Potassium 3.9 mmol/L (3.5-5.1); Sodium 139 mmol/L (135-145); Total Bilirubin 0.6 mg/dl (0.2-1.3); Total Protein 6.1 g/dl (6.3-8.2)
[2024-05-22] MEDS: COREG 3.125 MG PO (13:45)
[2024-05-22] MEDS: PULMOZYME INTRAPLEUR ×2 (13:46)
[2024-05-22] MEDS: NSS INTRAPLEUR (13:46)
[2024-05-22] MEDS: CATHFLO/ACTIVASE INTRAPLEUR ×2 (13:47)
[2024-05-22] MEDS: NOVOLOG FLEXPEN 4 UNITS SC (13:49)
--- NOTE | 2024-05-22 14:04 | CM ---
CM reviewed chart, patient seen resting, spoke . Patient likely for discharge today, IMM reviewed, signed, placed in chart. Will update [facility] on patient discharge status.
Plan; home with family, VN, outpatient PAL care, outpatient HD.
[facility] in [place]
--- NOTE | 2024-05-22 14:33 | VNURNOTE ---
[facility] liaison met with patient and spouse at bedside. Chest tube removed today. Pt scheduled for HD tomorrow. Agreeable to resume [facility]. Intake office aware of DC today and resumption referral accepted in [facility].
--- NOTE | 2024-05-22 14:41 | W.DCSUMMARY ---
Discharge Summary
Discharge Data
Date of Admission: 05/13/24
Date of Discharge: 05/22/24
Total time spent discharging patient (in min): 45
-
Pending Results: No
Hospital Course
74 year old male with past medical history of history of pleural effusion, CAD, chronic HFrEF, paroxysmal A-fib not on anticoagulation due to his choice and fistula site bleeding in the past, hypertension, hyperlipidemia, CVA/TIA, end-stage renal
disease on hemodialysis, diabetes mellitus, COPD and chronic gait dysfunction presented with shortness of breath and found to have left-sided pleural effusion. Pulmonary, interventional radiology and nephrology were consulted. Chest CT which was
performed showed a complex pleural fluid structure. On May 15, 2024, patient had with interventional radiology post CT-guided left chest tube placement with finding of small but heavily loculated left pleural effusion; 8.5F chest tube was placed
with aspiration of bloody fluid, not overtly purulent. The pleural fluid was not suggestive of empyema. Pulmonary mentioned that patient's pleural fluid was relatively benign, and that LDH was with discordant exudate effusion. CT Chest was obtained
again on 05/18/24, showing persistent LLL pleural effusion with hydropneumothorax, similar to prior CT chest on 05/14/2024 patient also had a right pleural effusion. Cardiothoracic surgery was consulted to evaluate for VATS with decortication; they
mentioned that given the patient's frailty and recent tramadol addiction, the patient would be best served with tPA/dornase for the collection in the left chest. Patient was received several doses of tPA/dornase through his chest tube. Repeat CT
chest showed improved left lower lobe hydropneumothorax.
Palliative care consult was also placed during patient's hospitalization and they would follow-up with patient as an outpatient.
As per pulmonary (and discussion with hospitalist and pulmonary with patient's family) patient was okay for chest tube removal and discharge on May 22, 2024.
Discharge Plan
-
Patient Disposition: Home with Home Care
Discharge Diagnosis/Procedures: Recurrent left pleural effusion-complex
CAD with a history of stent-
Status post CABG
Recent HFrEF requiring BiPAP
Ischemic cardiomyopathy-EF 25%
Hypertensive emergency - resolved
Paroxysmal atrial fibrillation
Anemia
Thrombocytopenia
Chronic renal failure on iHD
Physical deconditioning
Hypertension
Hyperlipidemia
Diabetes
Hypoglycemia
Coronary Artery Disease
Atrial fibrillation
CHF-EF 25%
CVA/TIA-2010
End-stage renal disease on hemodialysis
Anemia of chronic disease
Occupational exposure-history of working in [employer] for 17 years-asbestos exposure
Right wrist AV fistula
Condition: Fair
Diet: Other diet
Additional Diets: Renal Dialysis Diet
Activity: As tolerated
Blood Work: Check CBC, CMP, Phos and Magnesium in 2 to 3 days
Other Services: VN
Activity Restrictions/Additional Instructions:
Half the usual long-acting nighttime Insulin day before dialysis, hold all Insulin before dialysis on dialysis days, but okay to resume all Insulin (as long as patient is eating) after dialysis on dialysis days
Referrals:
Vipul Beckett MD [Active] - in two to four weeks (Coronary and aortic atherosclerosis and post coronary artery bypass (on hospital CT Imaging))
Ramses Samson MD [Active] - in three to four weeks
([address] effusion, air fluid levels
possible left trap lung)
Olman Dougherty DO [Family Provider] - in less than 1 week
Anthony Hood MD [Active] - in two to four weeks (Extensive pancreatic calcifications on hospital CT Imaging from May 2024. Cholelithiasis.)
Additional Discharge Medication Instructions: Continue your home Amiodarone if your employee communications specialist instructed you to do so.
Prescriptions:
Continued
atorvastatin 80 mg Tablet
80 mg PO HS
calcium acetate 667 mg Tablet
667 mg PO MEALS
aspirin 81 mg tablet,delayed release (DR/EC)
81 mg PO HS
carvedilol [Coreg] 3.125 mg Tablet
3.125 mg PO BID
gabapentin 100 mg Capsule
200 mg PO HS
acetaminophen [Tylenol] 325 mg Tablet
625 mg PO Q4HPRN PRN (Reason: mild pain)
nitroglycerin 0.4 mg Tablet, Sublingual
0.4 mg SUBLINGUAL [id number] PRN (Reason: chest pain)
insulin glargine [Lantus Solostar U-100 Insulin] 100 unit/mL (3 mL) Insulin Pen
14 unit SC HS Qty: 0 0RF
gabapentin 100 mg Capsule
100 mg PO DAILY
Eliquis 5 mg Tablet
5 mg PO .SEE BELOW
Patient Comments:
05/13/24: takes BID, except not on dialysis days
insulin aspart U-100 [Novolog FlexPen U-100 Insulin] 100 unit/mL (3 mL) insulin pen
0 sliding scale dose SC AC
Discharge Orders:
Discharge Patient (As Directed); Ordered 05/22/24
Ordered By: Andres Kovacs
Discharge Date and Time
Discharge Date/Time: 05/22/24 15:55
Print Language: ROMANSH
[2024-05-22 15:00] VITALS: BP 116/61
== END 2024-05-22 15:55 | disposition home health service (06) | DRG 640 ==
LOC: 4 WEST ACU 21:32
PROVIDERS: Emergency Medicine; Internal Medicine Critical Care Medicine; Radiology Diagnostic Radiology; Radiology Vascular & Interventional Radiology; Specialist; ADMITTING PHYSICIAN Internal Medicine; ATTENDING PHYSICIAN Hospitalist; CONSULT PHYSICIAN Internal Medicine; CONSULT PHYSICIAN Internal Medicine Hospice and Palliative Medicine; CONSULT PHYSICIAN Thoracic Surgery (Cardiothoracic Vascular Surgery); EMERGENCY PHYSICIAN Emergency Medicine; FAMILY PHYSICIAN Family Medicine
PROC: 5A1D70Z Performance of Urinary Filtration, Intermittent, Less than 6 Hours Per Day (ICD-10-PCS; 2024-05-14)
PROC: 0W9B30Z Drainage of Left Pleural Cavity with Drainage Device, Percutaneous Approach (ICD-10-PCS; 2024-05-15)
PROC: 3E0L317 Introduction of Other Thrombolytic into Pleural Cavity, Percutaneous Approach (ICD-10-PCS; 2024-05-19)
PROC: 0WPBX0Z Removal of Drainage Device from Left Pleural Cavity, External Approach (ICD-10-PCS; 2024-05-22)
DX: E87.70 Fluid overload, unspecified (principal); N18.6 End stage renal disease; I13.2 Hypertensive heart and chronic kidney disease with heart failure and with stage 5 chronic kidney disease, or end stage renal disease; D61.818 Other pancytopenia; J91.8 Pleural effusion in other conditions classified elsewhere; I16.1 Hypertensive emergency; F11.20 Opioid dependence, uncomplicated; I50.22 Chronic systolic (congestive) heart failure; D63.1 Anemia in chronic kidney disease; E11.22 Type 2 diabetes mellitus with diabetic chronic kidney disease; E11.42 Type 2 diabetes mellitus with diabetic polyneuropathy; I25.10 Atherosclerotic heart disease of native coronary artery without angina pectoris; I48.0 Paroxysmal atrial fibrillation; J44.9 Chronic obstructive pulmonary disease, unspecified; E83.39 Other disorders of phosphorus metabolism; I44.7 Left bundle-branch block, unspecified; E11.65 Type 2 diabetes mellitus with hyperglycemia; I25.5 Ischemic cardiomyopathy; E05.90 Thyrotoxicosis, unspecified without thyrotoxic crisis or storm; Z99.2 Dependence on renal dialysis; Z95.5 Presence of coronary angioplasty implant and graft; Z95.1 Presence of aortocoronary bypass graft; Z86.73 Personal history of transient ischemic attack (TIA), and cerebral infarction without residual deficits; Z79.899 Other long term (current) drug therapy; Z79.4 Long term (current) use of insulin; Z79.82 Long term (current) use of aspirin; Z77.090 Contact with and (suspected) exposure to asbestos
CPT/HCPCS: 32557; 32561; 32562; 71045; 71046; 71250; 80048; 80051; 80053; 82150; 82945; 82947; 82962; 83605; 83615; 83735; 83986; 84155; 84157; 84478; 84484; 85014; 85018; 85025; 85027; 87015; 87070; 87205; 87811; 89051; 93005; 97110; 97112; 97116; 97163; 97166; 99152; 99153; 99285; G0257; J1610; J2916; J2997; P9047; Q5106